=== PATIENT | male | born 1935 | race Caucasian/White ===

== ENCOUNTER 2018-02-17 20:52 | Inpatient (IN) | payer OTHER ==
[2018-02-17 21:06] LABS: AADO2 Arterial 229.9 mmHg (7.0-24.0); Allen Test ACCEPTAB; Arterial Base Excess 2.8 mmol/L (-3.0-3); Arterial Blood Gas Oxygen Sat 93.8 mmHG (95.0-100.0); Arterial COHb 0.4 % (0.0-3.0); Arterial Fraction of Oxyhgb 93.3 % (93.0-99.0); Arterial HCO3 27.4 mmol/L (22.0-26.0); Arterial MetHb 0.1 % (0.0-1.5); Arterial Total Hemglobin 12.5 g/dl (12.0-18.0); Arterial pCO2 42.3 mmhg (35-45); MODE MASK - SIMPLE; Site Left Radial
[2018-02-17 21:37] LABS: ADD MAN DIFF? NO
[2018-02-17 21:41] LABS: BASOPHIL # 0.1 10^3/ul (0.0-0.1); BASOPHILS % 0.7 % (0.0-2.0); EOSINOPHILS # 0.4 10^3/ul (0.0-0.5); HEMATOCRIT 37.1 % (42.0-52.0); HEMOGLOBIN 11.9 g/dl (14.0-18.0); LYMPHOCYTES # 1.5 10^3/ul (0.8-2.9); LYMPHOCYTES % 21.3 % (15.0-51.0); MEAN CORPUSCULAR HEMOGLOBIN 29.9 pg (29.0-33.0); MEAN CORPUSCULAR HGB CONC 32.1 g/dl (32.0-37.0); MEAN CORPUSCULAR VOLUME 93.2 fl (82.0-101.0); MEAN PLATELET VOLUME 11.1 fl (7.4-10.4); MONOCYTE # 0.6 10^3/ul (0.3-0.9); MONOCYTES % 8.4 % (0.0-11.0); NEUTROPHIL # 4.5 10^3/ul (1.6-7.5); NEUTROPHILS % 64.3 % (39.0-77.0); PLATELET COUNT 279 10^3/UL (140-415); RED BLOOD COUNT 3.98 10^6/ul (4.70-6.10); RED CELL DISTRIBUTION WIDTH 13.6 % (11.5-14.5)
[2018-02-17 21:41] LABS: WHITE BLOOD COUNT 6.9 10^3/ul (4.8-10.8)
[2018-02-17] MEDS: PIPER-TAZO 3.375 GM IV (PMX) 100 ML IVPB (21:55)
[2018-02-17] MEDS: SODIUM CHLORIDE 0.9% 1L BAG IV* (21:56)
[2018-02-17 22:01] LABS: ANION GAP 12 (8-16); BLOOD UREA NITROGEN 22 mg/dl (7-20); CALCIUM 9.6 mg/dl (8.4-10.2); CARBON DIOXIDE 31 mmol/L (21-31); CHLORIDE 100 mmol/L (97-110); CREATININE 0.83 mg/dl (0.61-1.24); GLUCOSE 104 mg/dl (70-220); POTASSIUM 4.1 mmol/L (3.5-5.1); SODIUM 139 mmol/L (135-144)
[2018-02-17 22:13] LABS: B-TYPE NATRIURETIC PEPTIDE 297 PG/ML (0-450)
[2018-02-17 22:14] LABS: TROPONIN-I < 0.010 ng/ml (0.000-0.120)
[2018-02-17 22:37] LABS: LACTIC ACID 0.9 mmol/L (0.5-2.0)
[2018-02-17 22:40] LABS: ADD UMIC NO; UR ASCORBIC ACID 40 mg/dL (NEGATIVE); UR BILIRUBIN (Dip) NEGATIVE (NEGATIVE); UR BLOOD (Dip) NEGATIVE (NEGATIVE); UR CLARITY CLEAR (CLEAR); UR COLOR YELLOW (YELLOW); UR GLUCOSE (Dip) NEGATIVE (NEGATIVE); UR KETONES (Dip) NEGATIVE (NEGATIVE); UR LEUKOCYTE ESTERASE (Dip) NEGATIVE Leu/ul (NEGATIVE); UR NITRITE (Dip) NEGATIVE (NEGATIVE); UR SPECIFIC GRAVITY (Dip) 1.011 (1.003-1.030); UR TOTAL PROTEIN (Dip) NEGATIVE (NEGATIVE); UR UROBILINOGEN (Dip) NEGATIVE (NEGATIVE)
[2018-02-17] MEDS: VANCOMYCIN 1 GM (PMX) 250 ML IVPB (23:20)
[2018-02-17] MEDS ORDERED: NACL 0.9% 3 ML SYG IV (23:30)
[2018-02-17] MEDS ORDERED: ONDANSETRON 4 MG INJ IV (23:30)
[2018-02-17] MEDS ORDERED: DOCUSATE SODIUM 100 MG CAP PO (23:30)
[2018-02-17] MEDS ORDERED: MAGNESIUM HYDROXIDE 30ML CUP PO (23:30)
[2018-02-17] MEDS ORDERED: BISACODYL 10 MG SUPP PR (23:30)
[2018-02-17] MEDS ORDERED: ALBUTEROL/IPRATROPIUM (NEB) 3 ML AMP HHN (23:30)
[2018-02-18] MEDS: ALBUTEROL/IPRATROPIUM (NEB) 3 ML AMP HHN ×4 (00:38→19:51)
[2018-02-18 00:54] LABS: LACTIC ACID 1.1 mmol/L (0.5-2.0)
[2018-02-18] MEDS: SOD CHLORIDE 0.9% 1,000 ML IV ×3 (02:45→22:11)
[2018-02-18] MEDS: HYDROCODONE/APAP (5/325) TAB PO (03:40)
[2018-02-18 04:03] LABS: WHITE BLOOD COUNT 20.6 10^3/ul (4.8-10.8)
[2018-02-18 04:03] LABS: ABNORMAL IP MESSAGE 1; HEMATOCRIT 36.5 % (42.0-52.0); HEMOGLOBIN 11.6 g/dl (14.0-18.0); MEAN CORPUSCULAR HEMOGLOBIN 29.5 pg (29.0-33.0); MEAN CORPUSCULAR HGB CONC 31.8 g/dl (32.0-37.0); MEAN CORPUSCULAR VOLUME 92.9 fl (82.0-101.0); MEAN PLATELET VOLUME 11.5 fl (7.4-10.4); PLATELET COUNT 265 10^3/UL (140-415); POSITIVE DIFF @See below; RED BLOOD COUNT 3.93 10^6/ul (4.70-6.10); RED CELL DISTRIBUTION WIDTH 13.9 % (11.5-14.5)
[2018-02-18 04:06] LABS: ADD MAN DIFF? YES
[2018-02-18 04:15] LABS: LACTIC ACID 1.6 mmol/L (0.5-2.0)
[2018-02-18 04:18] LABS: ALANINE AMINOTRANSFERASE 28 IU/L (13-69); ALBUMIN 3.5 g/dl (3.3-4.9); ALBUMIN/GLOBULIN RATIO 1.09; ALKALINE PHOSPHATASE 101 IU/L (42-121); ANION GAP 7 (8-16); ASPARTATE AMINO TRANSFERASE 24 IU/L (15-46); BILIRUBIN,INDIRECT 0.9 mg/dl (0-1.1); BILIRUBIN,TOTAL 0.9 mg/dl (0.2-1.3); BLOOD UREA NITROGEN 20 mg/dl (7-20); CALCIUM 9.2 mg/dl (8.4-10.2); CARBON DIOXIDE 28 mmol/L (21-31); CHLORIDE 110 mmol/L (97-110); CREATININE 0.72 mg/dl (0.61-1.24); GLUCOSE 119 mg/dl (70-220); MAGNESIUM 1.8 mg/dl (1.7-2.5); SODIUM 141 mmol/L (135-144); TOTAL PROTEIN 6.7 g/dl (6.1-8.1)
[2018-02-18 04:34] LABS: CREATINE KINASE 135 IU/L (23-200)
[2018-02-18 04:46] LABS: CK INDEX 1.1; TROPONIN-I 0.013 ng/ml (0.000-0.120)
[2018-02-18 04:53] LABS: CK-MB 1.48 ng/ml (0.0-2.4)
[2018-02-18] MEDS ORDERED: PENDING SANTYL ORDER FOR WOUND CARE XX (05:30)
[2018-02-18] MEDS: PIPER-TAZO 3.375 GM IV (PMX) 100 ML IVPB ×3 (05:34→22:11)
[2018-02-18] MEDS: ACETAMINOPHEN 325 MG TAB PO (05:35)
[2018-02-18 05:54] LABS: BAND NEUTROPHILS #M 0.8 10^3/ul (0.0-0.6); BAND NEUTROPHILS % (M) 4 % (0-4); GIANT THROMBO% (M) 1 % (0-0); LYMPHOCYTES #M 0.6 10^3/ul (0.8-2.9); LYMPHOCYTES % (M) 3 % (15-51); METAMYELOCYTES #M 0.2 10^3/ul (0.0-0.0); METAMYELOCYTES %M 1 % (0-0); MONOCYTE #M 1.4 10^3/ul (0.3-0.9); MONOCYTES % (M) 7 % (0-11); PLATELET ESTIMATE NORMAL; POLYCHROMASIA 1+ (0-0); SEG NEUT #M 17.7 10^3/ul (1.6-7.5); SEGMENTED NEUTROPHILS (M) % 85 % (39-77)
[2018-02-18] MEDS: FAMOTIDINE 20 MG TAB PO (08:15)
[2018-02-18] MEDS: ENOXAPARIN 40 MG/0.4 ML SYG SC (08:16)
[2018-02-18] MEDS ORDERED: VANCOMYCIN IV PER PHARMACY XX (09:30)
[2018-02-18 09:44] LABS: CREATINE KINASE 108 IU/L (23-200)
[2018-02-18 09:57] LABS: CK INDEX 2.2; CK-MB 2.34 ng/ml (0.0-2.4); TROPONIN-I 0.012 ng/ml (0.000-0.120)
[2018-02-18] MEDS: MEMANTINE 10 MG TAB GTB ×2 (10:00→20:29)
[2018-02-18] MEDS: IOHEXOL 100 ML (11:00)
[2018-02-18] MEDS ORDERED: ALBUTEROL/IPRATROPIUM (NEB) 3 ML AMP HHN (11:00)
[2018-02-18] MEDS: SOD CHLORIDE 0.9% 100 ML (11:00)
[2018-02-18] MEDS: VANCOMYCIN 500MG/NS (PMX) 100 ML IVPB ×2 (12:35→23:13)
[2018-02-18] MEDS: AMLODIPINE 10 MG TAB GTB (12:35)
[2018-02-18] MEDS: DOCUSATE SODIUM 10 MG/ML (10ML CUP) GTB (20:28)
[2018-02-18] MEDS: QUETIAPINE 25 MG TAB GTB (20:29)
[2018-02-18] MEDS: DONEPEZIL 10 MG TAB GTB (20:29)
[2018-02-19] MEDS: ALBUTEROL/IPRATROPIUM (NEB) 3 ML AMP HHN ×4 (01:49→19:19)
[2018-02-19] MEDS: PIPER-TAZO 3.375 GM IV (PMX) 100 ML IVPB ×3 (05:03→23:05)
[2018-02-19] MEDS: LANSOPRAZOLE 30 MG CAP GTB (05:03)
[2018-02-19] MEDS: ACETAMINOPHEN 325 MG TAB PO (05:04)
[2018-02-19] MEDS: DOCUSATE SODIUM 10 MG/ML (10ML CUP) GTB ×2 (08:52→20:24)
[2018-02-19] MEDS: ASPIRIN 81 MG TAB GTB (08:52)
[2018-02-19] MEDS: AMLODIPINE 10 MG TAB GTB (08:52)
[2018-02-19] MEDS: MEMANTINE 10 MG TAB GTB ×2 (08:52→20:24)
[2018-02-19] MEDS: ENOXAPARIN 40 MG/0.4 ML SYG SC (08:53)
[2018-02-19 10:37] LABS: ADD MAN DIFF? NO
[2018-02-19 10:43] LABS: BASOPHIL # 0.1 10^3/ul (0.0-0.1); BASOPHILS % 0.4 % (0.0-2.0); EOSINOPHILS # 0.3 10^3/ul (0.0-0.5); EOSINOPHILS % 1.8 % (0.0-7.0); HEMATOCRIT 29.5 % (42.0-52.0); HEMOGLOBIN 9.2 g/dl (14.0-18.0); LYMPHOCYTES # 0.8 10^3/ul (0.8-2.9); LYMPHOCYTES % 5.7 % (15.0-51.0); MEAN CORPUSCULAR HEMOGLOBIN 29.7 pg (29.0-33.0); MEAN CORPUSCULAR HGB CONC 31.2 g/dl (32.0-37.0); MEAN CORPUSCULAR VOLUME 95.2 fl (82.0-101.0); MEAN PLATELET VOLUME 11.2 fl (7.4-10.4); MONOCYTE # 0.7 10^3/ul (0.3-0.9); MONOCYTES % 5.3 % (0.0-11.0); NEUTROPHIL # 11.9 10^3/ul (1.6-7.5); NEUTROPHILS % 86.4 % (39.0-77.0); PLATELET COUNT 204 10^3/UL (140-415); RED CELL DISTRIBUTION WIDTH 14.2 % (11.5-14.5)
[2018-02-19 10:43] LABS: WHITE BLOOD COUNT 13.8 10^3/ul (4.8-10.8)
[2018-02-19 11:08] LABS: PHOSPHORUS 2.3 mg/dl (2.5-4.9)
[2018-02-19 11:08] LABS: ANION GAP 9 (8-16); BLOOD UREA NITROGEN 18 mg/dl (7-20); CALCIUM 8.6 mg/dl (8.4-10.2); CARBON DIOXIDE 26 mmol/L (21-31); CHLORIDE 109 mmol/L (97-110); CREATININE 0.78 mg/dl (0.61-1.24); GLUCOSE 136 mg/dl (70-220); MAGNESIUM 1.9 mg/dl (1.7-2.5); POTASSIUM 3.2 mmol/L (3.5-5.1); SODIUM 141 mmol/L (135-144)
[2018-02-19 11:19] LABS: VANCOMYCIN,TROUGH 8.7 ug/ml (10.0-20.0)
[2018-02-19] MEDS: VANCOMYCIN 500MG/NS (PMX) 100 ML IVPB (11:40)
[2018-02-19] MEDS: POTASSIUM CHLORIDE 20 MEQ POWDER FOR ORAL SOLN GTB (13:44)
[2018-02-19] MEDS: QUETIAPINE 25 MG TAB GTB (20:24)
[2018-02-19] MEDS: DONEPEZIL 10 MG TAB GTB (20:24)
[2018-02-20] MEDS: ALBUTEROL/IPRATROPIUM (NEB) 3 ML AMP HHN ×5 (01:07→20:32)
[2018-02-20] MEDS: VANCOMYCIN 750 MG in SOD CHLORIDE 0.9% 150 ML IVPB ×2 (01:30→11:21)
[2018-02-20] MEDS: PIPER-TAZO 3.375 GM IV (PMX) 100 ML IVPB ×3 (06:21→21:50)
[2018-02-20] MEDS: LANSOPRAZOLE 30 MG CAP GTB (06:21)
[2018-02-20] MEDS: MEMANTINE 10 MG TAB GTB ×2 (08:33→21:50)
[2018-02-20] MEDS: AMLODIPINE 10 MG TAB GTB (08:33)
[2018-02-20] MEDS: ASPIRIN 81 MG TAB GTB (08:33)
[2018-02-20] MEDS: ENOXAPARIN 40 MG/0.4 ML SYG SC (08:34)
[2018-02-20] MEDS: DOCUSATE SODIUM 10 MG/ML (10ML CUP) GTB ×2 (08:34→21:50)
[2018-02-20] MEDS: ACETAMINOPHEN 325 MG TAB PO (08:34)
[2018-02-20 08:54] LABS: ADD MAN DIFF? NO
[2018-02-20 08:58] LABS: WHITE BLOOD COUNT 14.1 10^3/ul (4.8-10.8)
[2018-02-20 08:58] LABS: ABNORMAL IP MESSAGE 1; BASOPHILS % 0.3 % (0.0-2.0); EOSINOPHILS # 0.3 10^3/ul (0.0-0.5); EOSINOPHILS % 2.4 % (0.0-7.0); HEMATOCRIT 32.8 % (42.0-52.0); HEMOGLOBIN 10.3 g/dl (14.0-18.0); LYMPHOCYTES # 0.6 10^3/ul (0.8-2.9); MEAN CORPUSCULAR HEMOGLOBIN 29.9 pg (29.0-33.0); MEAN CORPUSCULAR HGB CONC 31.4 g/dl (32.0-37.0); MEAN CORPUSCULAR VOLUME 95.1 fl (82.0-101.0); MEAN PLATELET VOLUME 12.1 fl (7.4-10.4); MONOCYTE # 0.9 10^3/ul (0.3-0.9); MONOCYTES % 6.1 % (0.0-11.0); NEUTROPHIL # 12.3 10^3/ul (1.6-7.5); NEUTROPHILS % 86.9 % (39.0-77.0); PLATELET COUNT 229 10^3/UL (140-415); POSITIVE DIFF @See below; RED BLOOD COUNT 3.45 10^6/ul (4.70-6.10); RED CELL DISTRIBUTION WIDTH 14.2 % (11.5-14.5)
[2018-02-20 09:27] LABS: ANION GAP 10 (8-16); BLOOD UREA NITROGEN 15 mg/dl (7-20); CALCIUM 9.1 mg/dl (8.4-10.2); CARBON DIOXIDE 29 mmol/L (21-31); CHLORIDE 108 mmol/L (97-110); CREATININE 0.77 mg/dl (0.61-1.24); GLUCOSE 105 mg/dl (70-220); POTASSIUM 3.8 mmol/L (3.5-5.1); SODIUM 143 mmol/L (135-144)
[2018-02-20] MEDS: LACTATED RINGER'S 1,000 ML IV (13:38)
[2018-02-20] MEDS: DONEPEZIL 10 MG TAB GTB (21:50)
[2018-02-20] MEDS: QUETIAPINE 25 MG TAB GTB (21:50)
[2018-02-21] MEDS: VANCOMYCIN 750 MG in SOD CHLORIDE 0.9% 150 ML IVPB ×2 (01:26→11:04)
[2018-02-21] MEDS: ALBUTEROL/IPRATROPIUM (NEB) 3 ML AMP HHN ×3 (01:32→14:59)
[2018-02-21] MEDS: LANSOPRAZOLE 30 MG CAP GTB (06:19)
[2018-02-21] MEDS: PIPER-TAZO 3.375 GM IV (PMX) 100 ML IVPB ×2 (06:20→13:48)
[2018-02-21] MEDS: ASPIRIN 81 MG TAB GTB (08:50)
[2018-02-21] MEDS: AMLODIPINE 10 MG TAB GTB (08:50)
[2018-02-21] MEDS: MEMANTINE 10 MG TAB GTB (08:50)
[2018-02-21] MEDS: DOCUSATE SODIUM 10 MG/ML (10ML CUP) GTB (08:50)
[2018-02-21] MEDS: ENOXAPARIN 40 MG/0.4 ML SYG SC (08:55)
[2018-02-21 11:35] LABS: ADD MAN DIFF? NO
[2018-02-21 11:37] LABS: WHITE BLOOD COUNT 9.4 10^3/ul (4.8-10.8)
[2018-02-21 11:37] LABS: BASOPHILS % 0.3 % (0.0-2.0); EOSINOPHILS # 0.4 10^3/ul (0.0-0.5); EOSINOPHILS % 4.2 % (0.0-7.0); HEMATOCRIT 29.3 % (42.0-52.0); HEMOGLOBIN 9.3 g/dl (14.0-18.0); LYMPHOCYTES # 0.8 10^3/ul (0.8-2.9); LYMPHOCYTES % 8.7 % (15.0-51.0); MEAN CORPUSCULAR HEMOGLOBIN 29.9 pg (29.0-33.0); MEAN CORPUSCULAR HGB CONC 31.7 g/dl (32.0-37.0); MEAN CORPUSCULAR VOLUME 94.2 fl (82.0-101.0); MEAN PLATELET VOLUME 11.9 fl (7.4-10.4); MONOCYTE # 0.8 10^3/ul (0.3-0.9); MONOCYTES % 8.3 % (0.0-11.0); NEUTROPHIL # 7.4 10^3/ul (1.6-7.5); NEUTROPHILS % 78.1 % (39.0-77.0); PLATELET COUNT 240 10^3/UL (140-415); RED BLOOD COUNT 3.11 10^6/ul (4.70-6.10); RED CELL DISTRIBUTION WIDTH 14.2 % (11.5-14.5)
[2018-02-21 11:57] LABS: ANION GAP 10 (8-16); BLOOD UREA NITROGEN 15 mg/dl (7-20); CALCIUM 8.8 mg/dl (8.4-10.2); CARBON DIOXIDE 29 mmol/L (21-31); CHLORIDE 107 mmol/L (97-110); GLUCOSE 110 mg/dl (70-220); POTASSIUM 3.5 mmol/L (3.5-5.1); SODIUM 142 mmol/L (135-144)
[2018-02-21 12:00] LABS: VANCOMYCIN,TROUGH 12.2 ug/ml (10.0-20.0)
[2018-02-21] MEDS: METOPROLOL 25 MG TAB GTB (12:09)
== END 2018-02-21 17:20 | DRG 871 ==
LOC: MS4 23:27 → E/R 20:52
DX: A41.9 Sepsis, unspecified organism (principal); J96.01 Acute respiratory failure with hypoxia; J18.9 Pneumonia, unspecified organism; R62.7 Adult failure to thrive; I10 Essential (primary) hypertension; J43.9 Emphysema, unspecified; Z74.01 Bed confinement status; G30.9 Alzheimer's disease, unspecified; F02.80 Dementia in other diseases classified elsewhere, unspecified severity, without behavioral disturbance, psychotic disturbance, mood disturbance, and anxiety; Z93.1 Gastrostomy status; Z87.891 Personal history of nicotine dependence; R13.10 Dysphagia, unspecified
CPT/HCPCS: 36415; 36600; 71045; 71275; 80048; 80053; 80202; 81003; 82550; 82553; 82803; 83605; 83735; 83880; 84100; 84484; 85025; 87040; 87081; 87086; 93005; 94640; 94664; 96365; 96375; 99291-25

== ENCOUNTER 2018-02-23 10:02 | Inpatient (IN) | payer OTHER ==
[2018-02-23 10:36] LABS: AADO2 Arterial 93.9 mmHg (7.0-24.0); Allen Test ACCEPTAB; Arterial Base Excess 2.3 mmol/L (-3.0-3); Arterial Blood Gas Oxygen Sat 87.7 mmHG (95.0-100.0); Arterial COHb 0.3 % (0.0-3.0); Arterial Fraction of Oxyhgb 87.3 % (93.0-99.0); Arterial HCO3 26.4 mmol/L (22.0-26.0); Arterial MetHb 0.1 % (0.0-1.5); Arterial Total Hemglobin 11.6 g/dl (12.0-18.0); Arterial pCO2 39.3 mmhg (35-45); MODE NASAL CANNULA; Site Left Radial
[2018-02-23] MEDS: CEFEPIME 2GM/50 ML (PMX) 50 ML IVPB (10:52)
[2018-02-23 10:59] LABS: ADD MAN DIFF? NO
[2018-02-23 11:02] LABS: WHITE BLOOD COUNT 12.5 10^3/ul (4.8-10.8)
[2018-02-23 11:02] LABS: BASOPHIL # 0.1 10^3/ul (0.0-0.1); BASOPHILS % 0.4 % (0.0-2.0); EOSINOPHILS % 0.3 % (0.0-7.0); HEMATOCRIT 32.5 % (42.0-52.0); HEMOGLOBIN 10.4 g/dl (14.0-18.0); LYMPHOCYTES # 0.7 10^3/ul (0.8-2.9); LYMPHOCYTES % 5.9 % (15.0-51.0); MEAN CORPUSCULAR HEMOGLOBIN 29.8 pg (29.0-33.0); MEAN CORPUSCULAR VOLUME 93.1 fl (82.0-101.0); MEAN PLATELET VOLUME 11.4 fl (7.4-10.4); NEUTROPHIL # 10.6 10^3/ul (1.6-7.5); PLATELET COUNT 299 10^3/UL (140-415); RED BLOOD COUNT 3.49 10^6/ul (4.70-6.10); RED CELL DISTRIBUTION WIDTH 13.7 % (11.5-14.5)
[2018-02-23 11:19] LABS: LACTIC ACID 1.4 mmol/L (0.5-2.0)
[2018-02-23 11:34] LABS: ALANINE AMINOTRANSFERASE 37 IU/L (13-69); ALBUMIN 3.2 g/dl (3.3-4.9); ALBUMIN/GLOBULIN RATIO 1.06; ALKALINE PHOSPHATASE 89 IU/L (42-121); ANION GAP 11 (8-16); ASPARTATE AMINO TRANSFERASE 35 IU/L (15-46); BILIRUBIN,INDIRECT 0.5 mg/dl (0-1.1); BILIRUBIN,TOTAL 0.5 mg/dl (0.2-1.3); BLOOD UREA NITROGEN 22 mg/dl (7-20); CALCIUM 9.1 mg/dl (8.4-10.2); CARBON DIOXIDE 30 mmol/L (21-31); CHLORIDE 100 mmol/L (97-110); CREATININE 0.85 mg/dl (0.61-1.24); GLUCOSE 104 mg/dl (70-220); INR 0.89; POTASSIUM 3.9 mmol/L (3.5-5.1); PROTIME 12.1 Sec (11.9-14.9); PT RATIO 0.9; SODIUM 137 mmol/L (135-144); TOTAL PROTEIN 6.2 g/dl (6.1-8.1)
[2018-02-23 11:35] LABS: PARTIAL THROMBOPLASTIN TIME 32.1 Sec (25.0-35.0)
[2018-02-23 11:45] LABS: TROPONIN-I 0.012 ng/ml (0.000-0.120)
[2018-02-23] MEDS: CLINDAMYCIN 900 MG/D5W (PMX) 50 ML IVPB (11:51)
[2018-02-23] MEDS ORDERED: ONDANSETRON 4 MG INJ IV (12:30)
[2018-02-23] MEDS ORDERED: ACETAMINOPHEN 325 MG TAB PO (12:30)
[2018-02-23] MEDS: VANCOMYCIN 1 GM (PMX) 250 ML IVPB (12:37)
[2018-02-23] MEDS ORDERED: NACL 0.9% 3 ML SYG IV (13:00)
[2018-02-23] MEDS: SODIUM CHLORIDE 0.9% 1L BAG IV* (13:10)
[2018-02-23] MEDS ORDERED: BISACODYL (EC) 5 MG TAB PO (13:30)
[2018-02-23] MEDS ORDERED: ALBUTEROL/IPRATROPIUM (NEB) 3 ML AMP INH (13:30)
[2018-02-23 17:00] LABS: LACTIC ACID 1.4 mmol/L (0.5-2.0)
[2018-02-23] MEDS: DEXTROSE 5%-0.45% NACL 1,000 ML IV ×2 (17:08→23:00)
[2018-02-23] MEDS: METOPROLOL 25 MG TAB GTB (21:56)
[2018-02-23] MEDS: DOCUSATE SODIUM 10 MG/ML (10ML CUP) GTB (21:56)
[2018-02-23] MEDS: QUETIAPINE 25 MG TAB GTB (21:56)
[2018-02-23] MEDS: DONEPEZIL 10 MG TAB PO (21:57)
[2018-02-23] MEDS: MEMANTINE 10 MG TAB GTB (21:57)
[2018-02-24] MEDS: DEXTROSE 5%-0.45% NACL 1,000 ML IV ×2 (03:08→09:00)
[2018-02-24] MEDS ORDERED: VANCOMYCIN IV PER PHARMACY XX (04:30)
[2018-02-24] MEDS: PIPER-TAZO 2.25 GM (PMX) 50 ML IVPB (05:32)
[2018-02-24 06:03] LABS: ADD MAN DIFF? NO
[2018-02-24 06:16] LABS: BASOPHIL # 0.1 10^3/ul (0.0-0.1); BASOPHILS % 0.5 % (0.0-2.0); EOSINOPHILS # 0.3 10^3/ul (0.0-0.5); EOSINOPHILS % 2.3 % (0.0-7.0); HEMATOCRIT 29.4 % (42.0-52.0); HEMOGLOBIN 9.4 g/dl (14.0-18.0); LYMPHOCYTES # 1.4 10^3/ul (0.8-2.9); LYMPHOCYTES % 12.6 % (15.0-51.0); MEAN CORPUSCULAR HEMOGLOBIN 29.8 pg (29.0-33.0); MEAN CORPUSCULAR VOLUME 93.3 fl (82.0-101.0); MEAN PLATELET VOLUME 11.3 fl (7.4-10.4); MONOCYTE # 1.1 10^3/ul (0.3-0.9); MONOCYTES % 9.7 % (0.0-11.0); NEUTROPHIL # 8.2 10^3/ul (1.6-7.5); NEUTROPHILS % 74.5 % (39.0-77.0); PLATELET COUNT 287 10^3/UL (140-415); RED BLOOD COUNT 3.15 10^6/ul (4.70-6.10)
[2018-02-24 06:47] LABS: ANION GAP 6 (8-16); BLOOD UREA NITROGEN 15 mg/dl (7-20); CARBON DIOXIDE 28 mmol/L (21-31); CHLORIDE 108 mmol/L (97-110); CREATININE 0.74 mg/dl (0.61-1.24); GLUCOSE 104 mg/dl (70-220); POTASSIUM 3.3 mmol/L (3.5-5.1); SODIUM 139 mmol/L (135-144)
[2018-02-24] MEDS: MEMANTINE 10 MG TAB GTB ×2 (09:25→20:12)
[2018-02-24] MEDS: AMLODIPINE 10 MG TAB GTB (09:26)
[2018-02-24] MEDS: DOCUSATE SODIUM 10 MG/ML (10ML CUP) GTB ×2 (09:26→20:12)
[2018-02-24] MEDS: METOPROLOL 25 MG TAB GTB ×2 (09:26→20:13)
[2018-02-24] MEDS: VANCOMYCIN 750 MG in SOD CHLORIDE 0.9% 150 ML IVPB ×2 (11:47→22:37)
[2018-02-24] MEDS ORDERED: VANCOMYCIN 750 MG in SOD CHLORIDE 0.9% 150 ML IVPB (13:00)
[2018-02-24] MEDS: PIPER-TAZO 3.375 GM IV (PMX) 100 ML IVPB ×2 (14:29→18:19)
[2018-02-24] MEDS: POTASSIUM CHLORIDE 20 MEQ POWDER FOR ORAL SOLN GTB (14:29)
[2018-02-24] MEDS: QUETIAPINE 25 MG TAB GTB (20:12)
[2018-02-24] MEDS: DONEPEZIL 10 MG TAB PO (20:12)
[2018-02-24 22:46] LABS: OCCULT BLOOD STOOL POSITIVE (NEGATIVE)
[2018-02-25] MEDS: PIPER-TAZO 3.375 GM IV (PMX) 100 ML IVPB ×4 (00:44→19:12)
[2018-02-25 06:09] LABS: ADD MAN DIFF? NO
[2018-02-25 06:24] LABS: BASOPHIL # 0.1 10^3/ul (0.0-0.1); BASOPHILS % 0.7 % (0.0-2.0); EOSINOPHILS # 0.2 10^3/ul (0.0-0.5); EOSINOPHILS % 2.5 % (0.0-7.0); HEMATOCRIT 29.4 % (42.0-52.0); HEMOGLOBIN 9.3 g/dl (14.0-18.0); LYMPHOCYTES # 0.8 10^3/ul (0.8-2.9); LYMPHOCYTES % 8.1 % (15.0-51.0); MEAN CORPUSCULAR HEMOGLOBIN 29.2 pg (29.0-33.0); MEAN CORPUSCULAR HGB CONC 31.6 g/dl (32.0-37.0); MEAN CORPUSCULAR VOLUME 92.2 fl (82.0-101.0); MEAN PLATELET VOLUME 11.4 fl (7.4-10.4); MONOCYTE # 0.8 10^3/ul (0.3-0.9); MONOCYTES % 8.5 % (0.0-11.0); NEUTROPHIL # 7.6 10^3/ul (1.6-7.5); NEUTROPHILS % 79.8 % (39.0-77.0); PLATELET COUNT 305 10^3/UL (140-415); RED BLOOD COUNT 3.19 10^6/ul (4.70-6.10); RED CELL DISTRIBUTION WIDTH 13.8 % (11.5-14.5)
[2018-02-25 06:24] LABS: WHITE BLOOD COUNT 9.6 10^3/ul (4.8-10.8)
[2018-02-25 06:56] LABS: PHOSPHORUS 2.3 mg/dl (2.5-4.9)
[2018-02-25 06:56] LABS: MAGNESIUM 1.9 mg/dl (1.7-2.5)
[2018-02-25 07:08] LABS: ALANINE AMINOTRANSFERASE 30 IU/L (13-69); ALBUMIN 2.7 g/dl (3.3-4.9); ALBUMIN/GLOBULIN RATIO 0.96; ALKALINE PHOSPHATASE 85 IU/L (42-121); ANION GAP 6 (8-16); ASPARTATE AMINO TRANSFERASE 28 IU/L (15-46); BILIRUBIN,INDIRECT 0.4 mg/dl (0-1.1); BILIRUBIN,TOTAL 0.4 mg/dl (0.2-1.3); BLOOD UREA NITROGEN 16 mg/dl (7-20); CALCIUM 8.8 mg/dl (8.4-10.2); CARBON DIOXIDE 29 mmol/L (21-31); CHLORIDE 108 mmol/L (97-110); CREATININE 0.79 mg/dl (0.61-1.24); GLUCOSE 138 mg/dl (70-220); POTASSIUM 3.2 mmol/L (3.5-5.1); SODIUM 140 mmol/L (135-144); TOTAL PROTEIN 5.5 g/dl (6.1-8.1)
[2018-02-25] MEDS: DOCUSATE SODIUM 10 MG/ML (10ML CUP) GTB ×2 (09:00→21:28)
[2018-02-25] MEDS: MEMANTINE 10 MG TAB GTB ×2 (10:06→21:28)
[2018-02-25] MEDS: METOPROLOL 25 MG TAB GTB ×2 (10:06→21:29)
[2018-02-25] MEDS: AMLODIPINE 10 MG TAB GTB (10:07)
[2018-02-25] MEDS: VANCOMYCIN 750 MG in SOD CHLORIDE 0.9% 150 ML IVPB ×2 (11:32→23:02)
[2018-02-25] MEDS: POTASSIUM PHOSPHATE 30 MM in SOD CHLORIDE 0.9% 250 ML IVPB (14:50)
[2018-02-25] MEDS: DONEPEZIL 10 MG TAB PO (21:28)
[2018-02-25] MEDS: QUETIAPINE 25 MG TAB GTB (21:28)
[2018-02-26] MEDS: PIPER-TAZO 3.375 GM IV (PMX) 100 ML IVPB ×5 (00:14→23:55)
[2018-02-26 06:13] LABS: ADD MAN DIFF? NO
[2018-02-26 06:18] LABS: BASOPHIL # 0.1 10^3/ul (0.0-0.1); BASOPHILS % 0.7 % (0.0-2.0); EOSINOPHILS # 0.3 10^3/ul (0.0-0.5); EOSINOPHILS % 2.3 % (0.0-7.0); HEMATOCRIT 28.3 % (42.0-52.0); LYMPHOCYTES # 1.2 10^3/ul (0.8-2.9); LYMPHOCYTES % 10.4 % (15.0-51.0); MEAN CORPUSCULAR HEMOGLOBIN 29.6 pg (29.0-33.0); MEAN CORPUSCULAR HGB CONC 31.8 g/dl (32.0-37.0); MEAN CORPUSCULAR VOLUME 93.1 fl (82.0-101.0); MEAN PLATELET VOLUME 11.2 fl (7.4-10.4); MONOCYTE # 1.1 10^3/ul (0.3-0.9); MONOCYTES % 9.7 % (0.0-11.0); NEUTROPHIL # 8.7 10^3/ul (1.6-7.5); NEUTROPHILS % 76.5 % (39.0-77.0); PLATELET COUNT 330 10^3/UL (140-415); RED BLOOD COUNT 3.04 10^6/ul (4.70-6.10); RED CELL DISTRIBUTION WIDTH 14.1 % (11.5-14.5)
[2018-02-26 06:18] LABS: WHITE BLOOD COUNT 11.4 10^3/ul (4.8-10.8)
[2018-02-26 06:35] LABS: MAGNESIUM 1.9 mg/dl (1.7-2.5)
[2018-02-26 06:35] LABS: PHOSPHORUS 3.4 mg/dl (2.5-4.9)
[2018-02-26 06:39] LABS: INR 1.02; PROTIME 13.5 Sec (11.9-14.9); PT RATIO 1.1
[2018-02-26 06:40] LABS: PARTIAL THROMBOPLASTIN TIME 32.1 Sec (25.0-35.0)
[2018-02-26 06:48] LABS: ALANINE AMINOTRANSFERASE 29 IU/L (13-69); ALBUMIN 2.4 g/dl (3.3-4.9); ALBUMIN/GLOBULIN RATIO 0.92; ALKALINE PHOSPHATASE 72 IU/L (42-121); ANION GAP 8 (8-16); ASPARTATE AMINO TRANSFERASE 20 IU/L (15-46); BILIRUBIN,INDIRECT 0.6 mg/dl (0-1.1); BILIRUBIN,TOTAL 0.6 mg/dl (0.2-1.3); BLOOD UREA NITROGEN 15 mg/dl (7-20); CARBON DIOXIDE 28 mmol/L (21-31); CHLORIDE 112 mmol/L (97-110); GLUCOSE 85 mg/dl (70-220); POTASSIUM 3.3 mmol/L (3.5-5.1); SODIUM 145 mmol/L (135-144)
[2018-02-26] MEDS: MEMANTINE 10 MG TAB GTB ×2 (09:38→20:31)
[2018-02-26] MEDS: DOCUSATE SODIUM 10 MG/ML (10ML CUP) GTB ×2 (09:38→20:31)
[2018-02-26] MEDS: AMLODIPINE 10 MG TAB GTB (09:39)
[2018-02-26] MEDS: METOPROLOL 25 MG TAB GTB ×2 (09:39→20:32)
[2018-02-26] MEDS: POTASSIUM CHLORIDE 20 MEQ POWDER FOR ORAL SOLN GTB (10:44)
[2018-02-26] MEDS: VANCOMYCIN 500MG/NS (PMX) 100 ML IVPB (17:40)
[2018-02-26] MEDS: DONEPEZIL 10 MG TAB PO (20:31)
[2018-02-26] MEDS: QUETIAPINE 25 MG TAB GTB (20:31)
[2018-02-27] MEDS: VANCOMYCIN 500MG/NS (PMX) 100 ML IVPB ×2 (04:43→17:00)
[2018-02-27] MEDS: ACETAMINOPHEN 650MG/20.3ML CUP NGT (04:52)
[2018-02-27] MEDS: PIPER-TAZO 3.375 GM IV (PMX) 100 ML IVPB ×4 (05:47→23:19)
[2018-02-27 06:30] LABS: ADD MAN DIFF? NO
[2018-02-27 06:34] LABS: WHITE BLOOD COUNT 10.7 10^3/ul (4.8-10.8)
[2018-02-27 06:34] LABS: BASOPHIL # 0.1 10^3/ul (0.0-0.1); BASOPHILS % 0.8 % (0.0-2.0); EOSINOPHILS # 0.3 10^3/ul (0.0-0.5); EOSINOPHILS % 2.6 % (0.0-7.0); HEMATOCRIT 30.7 % (42.0-52.0); HEMOGLOBIN 9.7 g/dl (14.0-18.0); LYMPHOCYTES # 0.9 10^3/ul (0.8-2.9); LYMPHOCYTES % 8.3 % (15.0-51.0); MEAN CORPUSCULAR HEMOGLOBIN 29.4 pg (29.0-33.0); MEAN CORPUSCULAR HGB CONC 31.6 g/dl (32.0-37.0); MEAN PLATELET VOLUME 10.7 fl (7.4-10.4); MONOCYTE # 0.7 10^3/ul (0.3-0.9); MONOCYTES % 6.3 % (0.0-11.0); NEUTROPHIL # 8.7 10^3/ul (1.6-7.5); NEUTROPHILS % 81.5 % (39.0-77.0); PLATELET COUNT 363 10^3/UL (140-415); RED CELL DISTRIBUTION WIDTH 13.8 % (11.5-14.5)
[2018-02-27 07:20] LABS: ANION GAP 11 (8-16); BLOOD UREA NITROGEN 16 mg/dl (7-20); CALCIUM 9.3 mg/dl (8.4-10.2); CARBON DIOXIDE 25 mmol/L (21-31); CHLORIDE 110 mmol/L (97-110); CREATININE 0.82 mg/dl (0.61-1.24); GLUCOSE 98 mg/dl (70-220); POTASSIUM 3.2 mmol/L (3.5-5.1); SODIUM 143 mmol/L (135-144)
[2018-02-27 07:22] LABS: PHOSPHORUS 2.6 mg/dl (2.5-4.9)
[2018-02-27 07:22] LABS: MAGNESIUM 1.9 mg/dl (1.7-2.5)
[2018-02-27] MEDS: DOCUSATE SODIUM 10 MG/ML (10ML CUP) GTB ×2 (10:17→23:15)
[2018-02-27] MEDS: METOPROLOL 25 MG TAB GTB ×2 (10:18→23:16)
[2018-02-27] MEDS: AMLODIPINE 10 MG TAB GTB (10:18)
[2018-02-27] MEDS: MEMANTINE 10 MG TAB GTB ×2 (10:18→21:00)
[2018-02-27] MEDS: POTASSIUM CHLORIDE 20 MEQ POWDER FOR ORAL SOLN GTB (10:20)
[2018-02-27] MEDS: DONEPEZIL 10 MG TAB PO (23:16)
[2018-02-27] MEDS: QUETIAPINE 25 MG TAB GTB (23:16)
[2018-02-27] MEDS: SUCRALFATE (100 MG/ML) 10ML CUP GTB (23:19)
[2018-02-28] MEDS: LANSOPRAZOLE 30 MG CAP GTB (06:00)
[2018-02-28] MEDS: PIPER-TAZO 3.375 GM IV (PMX) 100 ML IVPB ×2 (06:00→11:48)
[2018-02-28 06:18] LABS: ADD MAN DIFF? NO
[2018-02-28 06:26] LABS: BASOPHIL # 0.1 10^3/ul (0.0-0.1); BASOPHILS % 0.5 % (0.0-2.0); EOSINOPHILS # 0.4 10^3/ul (0.0-0.5); EOSINOPHILS % 2.7 % (0.0-7.0); HEMATOCRIT 30.2 % (42.0-52.0); HEMOGLOBIN 9.4 g/dl (14.0-18.0); LYMPHOCYTES # 1.1 10^3/ul (0.8-2.9); LYMPHOCYTES % 8.3 % (15.0-51.0); MEAN CORPUSCULAR HEMOGLOBIN 29.5 pg (29.0-33.0); MEAN CORPUSCULAR HGB CONC 31.1 g/dl (32.0-37.0); MEAN CORPUSCULAR VOLUME 94.7 fl (82.0-101.0); MONOCYTES % 7.5 % (0.0-11.0); NEUTROPHIL # 10.6 10^3/ul (1.6-7.5); NEUTROPHILS % 80.6 % (39.0-77.0); PLATELET COUNT 387 10^3/UL (140-415); RED BLOOD COUNT 3.19 10^6/ul (4.70-6.10); RED CELL DISTRIBUTION WIDTH 14.2 % (11.5-14.5)
[2018-02-28 06:26] LABS: WHITE BLOOD COUNT 13.2 10^3/ul (4.8-10.8)
[2018-02-28 07:11] LABS: ANION GAP 8 (8-16); BLOOD UREA NITROGEN 18 mg/dl (7-20); CALCIUM 9.5 mg/dl (8.4-10.2); CARBON DIOXIDE 27 mmol/L (21-31); CHLORIDE 114 mmol/L (97-110); CREATININE 0.88 mg/dl (0.61-1.24); GLUCOSE 99 mg/dl (70-220); POTASSIUM 4.4 mmol/L (3.5-5.1); SODIUM 145 mmol/L (135-144)
[2018-02-28] MEDS: VANCOMYCIN 500MG/NS (PMX) 100 ML IVPB (07:59)
[2018-02-28] MEDS: MEMANTINE 10 MG TAB GTB (09:07)
[2018-02-28] MEDS: SUCRALFATE (100 MG/ML) 10ML CUP GTB ×2 (09:08→13:58)
[2018-02-28] MEDS: METOPROLOL 25 MG TAB GTB (09:08)
[2018-02-28] MEDS: AMLODIPINE 10 MG TAB GTB (09:08)
[2018-02-28] MEDS: DOCUSATE SODIUM 10 MG/ML (10ML CUP) GTB (09:09)
== END 2018-02-28 17:35 | DRG 377 ==
LOC: E/R 10:02 → MS2 15:08
PROC: 0DJ08ZZ Inspection of Upper Intestinal Tract, Via Natural or Artificial Opening Endoscopic (ICD-10-PCS; principal; 2018-02-27 16:30)
DX: K25.4 Chronic or unspecified gastric ulcer with hemorrhage (principal); J96.01 Acute respiratory failure with hypoxia; J18.9 Pneumonia, unspecified organism; J44.9 Chronic obstructive pulmonary disease, unspecified; Z93.1 Gastrostomy status; I10 Essential (primary) hypertension; G30.9 Alzheimer's disease, unspecified; F02.80 Dementia in other diseases classified elsewhere, unspecified severity, without behavioral disturbance, psychotic disturbance, mood disturbance, and anxiety; K21.0 Gastro-esophageal reflux disease with esophagitis; K22.8 Other specified diseases of esophagus; R11.10 Vomiting, unspecified; R62.7 Adult failure to thrive; Y95 Nosocomial condition; Z79.82 Long term (current) use of aspirin; Z74.01 Bed confinement status; Z87.891 Personal history of nicotine dependence
CPT/HCPCS: 36415; 36600; 71045; 74176; 80048; 80053; 80202; 82270; 82271; 82803; 83605; 83735; 84100; 84484; 85025; 85610; 85730; 87040; 93005; 96374; 96375; 99285-25

== ENCOUNTER 2018-03-07 10:09 | Inpatient (IN) | payer OTHER ==
[2018-03-07] MEDS: SODIUM CHLORIDE 0.9% 1L BAG IV* (10:19)
[2018-03-07 10:31] LABS: ADD MAN DIFF? NO
[2018-03-07 10:40] LABS: WHITE BLOOD COUNT 24.7 10^3/ul (4.8-10.8)
[2018-03-07 10:40] LABS: ABNORMAL IP MESSAGE 1; BASOPHIL # 0.1 10^3/ul (0.0-0.1); BASOPHILS % 0.2 % (0.0-2.0); EOSINOPHILS % 0.1 % (0.0-7.0); HEMOGLOBIN 11.8 g/dl (14.0-18.0); LYMPHOCYTES # 1.4 10^3/ul (0.8-2.9); LYMPHOCYTES % 5.7 % (15.0-51.0); MEAN CORPUSCULAR HEMOGLOBIN 29.1 pg (29.0-33.0); MEAN CORPUSCULAR HGB CONC 31.1 g/dl (32.0-37.0); MEAN CORPUSCULAR VOLUME 93.8 fl (82.0-101.0); MEAN PLATELET VOLUME 10.7 fl (7.4-10.4); MONOCYTE # 1.1 10^3/ul (0.3-0.9); MONOCYTES % 4.2 % (0.0-11.0); NEUTROPHIL # 22.1 10^3/ul (1.6-7.5); NEUTROPHILS % 89.4 % (39.0-77.0); PLATELET COUNT 493 10^3/UL (140-415); POSITIVE DIFF @See below; RED BLOOD COUNT 4.05 10^6/ul (4.70-6.10); RED CELL DISTRIBUTION WIDTH 14.8 % (11.5-14.5)
[2018-03-07 10:41] LABS: Allen Test ACCEPTAB; Arterial Base Excess 4.9 mmol/L (-3.0-3); Arterial Blood Gas Oxygen Sat 84.8 mmHG (95.0-100.0); Arterial COHb 0.3 % (0.0-3.0); Arterial Fraction of Oxyhgb 84.3 % (93.0-99.0); Arterial HCO3 27.7 mmol/L (22.0-26.0); Arterial MetHb 0.3 % (0.0-1.5); Arterial Total Hemglobin 12.2 g/dl (12.0-18.0); Arterial pCO2 34.4 mmhg (35-45); MODE MASK - SIMPLE; Site Right Brachial
[2018-03-07 11:02] LABS: ALANINE AMINOTRANSFERASE 26 IU/L (13-69); ALBUMIN 3.9 g/dl (3.3-4.9); ALKALINE PHOSPHATASE 108 IU/L (42-121); ANION GAP 19 (8-16); ASPARTATE AMINO TRANSFERASE 20 IU/L (15-46); BILIRUBIN,INDIRECT 0.4 mg/dl (0-1.1); BILIRUBIN,TOTAL 0.4 mg/dl (0.2-1.3); BLOOD UREA NITROGEN 25 mg/dl (7-20); CALCIUM 9.9 mg/dl (8.4-10.2); CARBON DIOXIDE 30 mmol/L (21-31); CHLORIDE 101 mmol/L (97-110); CREATININE 0.92 mg/dl (0.61-1.24); GLUCOSE 130 mg/dl (70-220); POTASSIUM 3.9 mmol/L (3.5-5.1); SODIUM 146 mmol/L (135-144); TOTAL PROTEIN 6.9 g/dl (6.1-8.1)
[2018-03-07 11:04] LABS: LACTIC ACID 4.3 mmol/L (0.5-2.0)
[2018-03-07 11:12] LABS: TROPONIN-I < 0.012 ng/ml (0.000-0.120)
[2018-03-07] MEDS: ACETAMINOPHEN 650 MG SUPP PR (11:12)
[2018-03-07] MEDS: PIPER-TAZO 3.375 GM IV (PMX) 100 ML IVPB (11:12)
[2018-03-07 11:33] LABS: ADD UMIC YES; UR ASCORBIC ACID 40 mg/dL (NEGATIVE); UR BILIRUBIN (Dip) NEGATIVE (NEGATIVE); UR BLOOD (Dip) NEGATIVE (NEGATIVE); UR CALCIUM OXALATE CRYSTAL MODERATE /HPF (NONE SEEN); UR CLARITY SLIGHTLY CLOUDY (CLEAR); UR COLOR YELLOW (YELLOW); UR GLUCOSE (Dip) NEGATIVE (NEGATIVE); UR KETONES (Dip) NEGATIVE (NEGATIVE); UR LEUKOCYTE ESTERASE (Dip) 1+ Leu/ul (NEGATIVE); UR NITRITE (Dip) NEGATIVE (NEGATIVE); UR RBC 1 /HPF (0-5); UR SPECIFIC GRAVITY (Dip) 1.015 (1.003-1.030); UR TOTAL PROTEIN (Dip) 1+ mg/dl (NEGATIVE); UR UROBILINOGEN (Dip) NEGATIVE (NEGATIVE); UR WBC 5 /HPF (0-5)
[2018-03-07 11:41] LABS: INR 0.97
[2018-03-07 11:42] LABS: PARTIAL THROMBOPLASTIN TIME 29.8 Sec (25.0-35.0)
[2018-03-07] MEDS: VANCOMYCIN 1 GM (PMX) 250 ML IVPB (11:55)
[2018-03-07 13:19] LABS: LACTIC ACID 4.1 mmol/L (0.5-2.0)
[2018-03-07] MEDS ORDERED: ONDANSETRON 4 MG INJ IV (13:30)
[2018-03-07] MEDS ORDERED: NACL 0.9% 3 ML SYG IV (13:30)
[2018-03-07] MEDS: LACTATED RINGER'S 1,000 ML IV ×2 (13:30)
[2018-03-07] MEDS ORDERED: VANCOMYCIN IV PER PHARMACY XX (14:00)
[2018-03-07] MEDS ORDERED: LABETALOL HCL 20MG INJ IV (16:00)
[2018-03-07] MEDS: CEFEPIME 2GM/50 ML (PMX) 50 ML IVPB (16:08)
[2018-03-07] MEDS: PANTOPRAZOLE 40 MG INJ IV (18:06)
[2018-03-07 19:19] LABS: LACTIC ACID 2.5 mmol/L (0.5-2.0)
[2018-03-07 22:28] LABS: LACTIC ACID 2.4 mmol/L (0.5-2.0)
[2018-03-07 22:34] LABS: AADO2 Arterial 599.7 mmHg (7.0-24.0); Allen Test ACCEPTAB; Arterial Base Excess 2.3 mmol/L (-3.0-3); Arterial Blood Gas Oxygen Sat 95.7 mmHG (95.0-100.0); Arterial COHb 0.3 % (0.0-3.0); Arterial Fraction of Oxyhgb 95.1 % (93.0-99.0); Arterial HCO3 26.1 mmol/L (22.0-26.0); Arterial MetHb 0.3 % (0.0-1.5); Arterial Total Hemglobin 11.6 g/dl (12.0-18.0); Arterial pCO2 37.4 mmhg (35-45); MODE MASK - NRB; Site Left Radial
[2018-03-07] MEDS: METOPROLOL 5 MG INJ IV (23:05)
[2018-03-08] MEDS: CEFEPIME 2GM/50 ML (PMX) 50 ML IVPB ×3 (00:47→20:48)
[2018-03-08] MEDS: LACTATED RINGER'S 1,000 ML IV ×4 (01:57→20:56)
[2018-03-08] MEDS: VANCOMYCIN 500MG/NS (PMX) 100 ML IVPB ×3 (01:58→23:00)
[2018-03-08] MEDS: METOPROLOL 5 MG INJ IV ×4 (03:45→20:49)
[2018-03-08] MEDS: PANTOPRAZOLE 40 MG INJ IV ×2 (05:33→18:17)
[2018-03-08 06:41] LABS: ADD MAN DIFF? NO
[2018-03-08 06:43] LABS: WHITE BLOOD COUNT 25.4 10^3/ul (4.8-10.8)
[2018-03-08 06:43] LABS: ABNORMAL IP MESSAGE 1; BASOPHIL # 0.1 10^3/ul (0.0-0.1); BASOPHILS % 0.3 % (0.0-2.0); HEMATOCRIT 27.5 % (42.0-52.0); HEMOGLOBIN 8.8 g/dl (14.0-18.0); LYMPHOCYTES % 4.1 % (15.0-51.0); MEAN CORPUSCULAR HEMOGLOBIN 29.9 pg (29.0-33.0); MEAN CORPUSCULAR VOLUME 93.5 fl (82.0-101.0); MEAN PLATELET VOLUME 10.8 fl (7.4-10.4); MONOCYTE # 1.1 10^3/ul (0.3-0.9); MONOCYTES % 4.4 % (0.0-11.0); NEUTROPHILS % 90.6 % (39.0-77.0); PLATELET COUNT 309 10^3/UL (140-415); POSITIVE DIFF @See below; RED BLOOD COUNT 2.94 10^6/ul (4.70-6.10); RED CELL DISTRIBUTION WIDTH 14.8 % (11.5-14.5)
[2018-03-08 07:15] LABS: ANION GAP 13 (8-16); BLOOD UREA NITROGEN 18 mg/dl (7-20); CALCIUM 9.1 mg/dl (8.4-10.2); CARBON DIOXIDE 30 mmol/L (21-31); CHLORIDE 106 mmol/L (97-110); CREATININE 0.76 mg/dl (0.61-1.24); GLUCOSE 89 mg/dl (70-220); POTASSIUM 3.5 mmol/L (3.5-5.1); SODIUM 145 mmol/L (135-144)
[2018-03-08] MEDS: SOD CHLORIDE 0.9% 100 ML (09:50)
[2018-03-08] MEDS: IODIXANOL LOCM 100 ML BTL (09:51)
[2018-03-08 22:44] LABS: VANCOMYCIN,TROUGH 11.7 ug/ml (10.0-20.0)
[2018-03-09] MEDS: ALBUTEROL/IPRATROPIUM (NEB) 3 ML AMP INH (03:45)
[2018-03-09] MEDS: METOPROLOL 5 MG INJ IV (04:13)
[2018-03-09] MEDS: PANTOPRAZOLE 40 MG INJ IV ×2 (05:24→17:39)
[2018-03-09] MEDS: LACTATED RINGER'S 1,000 ML IV ×3 (05:26→21:16)
[2018-03-09] MEDS ORDERED: DILTIAZEM-D5W 125MG/125ML DRIP 125 ML IV (06:00)
[2018-03-09 07:56] LABS: ADD MAN DIFF? NO
[2018-03-09] MEDS ORDERED: MAGNESIUM HYDROXIDE 30ML CUP PO (08:00)
[2018-03-09 08:02] LABS: WHITE BLOOD COUNT 21.7 10^3/ul (4.8-10.8)
[2018-03-09 08:02] LABS: ABNORMAL IP MESSAGE 1; BASOPHIL # 0.1 10^3/ul (0.0-0.1); BASOPHILS % 0.4 % (0.0-2.0); HEMATOCRIT 26.9 % (42.0-52.0); HEMOGLOBIN 8.3 g/dl (14.0-18.0); LYMPHOCYTES # 0.6 10^3/ul (0.8-2.9); LYMPHOCYTES % 2.6 % (15.0-51.0); MEAN CORPUSCULAR HEMOGLOBIN 29.1 pg (29.0-33.0); MEAN CORPUSCULAR HGB CONC 30.9 g/dl (32.0-37.0); MEAN CORPUSCULAR VOLUME 94.4 fl (82.0-101.0); MEAN PLATELET VOLUME 11.2 fl (7.4-10.4); MONOCYTE # 1.1 10^3/ul (0.3-0.9); MONOCYTES % 4.9 % (0.0-11.0); NEUTROPHIL # 19.8 10^3/ul (1.6-7.5); NEUTROPHILS % 91.5 % (39.0-77.0); PLATELET COUNT 293 10^3/UL (140-415); POSITIVE DIFF @See below; RED BLOOD COUNT 2.85 10^6/ul (4.70-6.10); RED CELL DISTRIBUTION WIDTH 14.6 % (11.5-14.5)
[2018-03-09 08:20] LABS: ANION GAP 12 (8-16); BLOOD UREA NITROGEN 17 mg/dl (7-20); CALCIUM 9.4 mg/dl (8.4-10.2); CARBON DIOXIDE 32 mmol/L (21-31); CHLORIDE 104 mmol/L (97-110); CREATININE 0.89 mg/dl (0.61-1.24); GLUCOSE 92 mg/dl (70-220); SODIUM 145 mmol/L (135-144)
[2018-03-09] MEDS: CEFEPIME 2GM/50 ML (PMX) 50 ML IVPB ×2 (09:03→21:22)
[2018-03-09] MEDS: SUCRALFATE (100 MG/ML) 10ML CUP GTB ×4 (09:03→21:13)
[2018-03-09] MEDS: MEMANTINE 10 MG TAB GTB ×2 (09:03→21:16)
[2018-03-09] MEDS: METOPROLOL 25 MG TAB GTB ×2 (09:04→21:15)
[2018-03-09] MEDS: POTASSIUM CHLORIDE 20 MEQ POWDER FOR ORAL SOLN GTB ×3 (09:09→13:15)
[2018-03-09 09:23] LABS: MAGNESIUM 1.8 mg/dl (1.7-2.5)
[2018-03-09] MEDS: VANCOMYCIN 750 MG in SOD CHLORIDE 0.9% 150 ML IVPB ×2 (10:37→23:33)
[2018-03-09] MEDS: MAGNESIUM SULFATE 2 GM/50 ML 50 ML IVPB (10:37)
[2018-03-09] MEDS: DONEPEZIL 10 MG TAB NGT (21:13)
[2018-03-09] MEDS: QUETIAPINE 25 MG TAB GTB (21:14)
[2018-03-10] MEDS: PANTOPRAZOLE 40 MG INJ IV ×2 (05:47→17:16)
[2018-03-10 07:13] LABS: ADD MAN DIFF? NO
[2018-03-10 07:16] LABS: BASOPHIL # 0.1 10^3/ul (0.0-0.1); BASOPHILS % 0.4 % (0.0-2.0); EOSINOPHILS # 0.6 10^3/ul (0.0-0.5); EOSINOPHILS % 3.6 % (0.0-7.0); HEMATOCRIT 29.4 % (42.0-52.0); HEMOGLOBIN 8.9 g/dl (14.0-18.0); LYMPHOCYTES # 0.8 10^3/ul (0.8-2.9); MEAN CORPUSCULAR HEMOGLOBIN 28.9 pg (29.0-33.0); MEAN CORPUSCULAR HGB CONC 30.3 g/dl (32.0-37.0); MEAN CORPUSCULAR VOLUME 95.5 fl (82.0-101.0); MEAN PLATELET VOLUME 11.8 fl (7.4-10.4); MONOCYTES % 6.2 % (0.0-11.0); NEUTROPHILS % 84.3 % (39.0-77.0); PLATELET COUNT 309 10^3/UL (140-415); RED BLOOD COUNT 3.08 10^6/ul (4.70-6.10); RED CELL DISTRIBUTION WIDTH 14.4 % (11.5-14.5)
[2018-03-10 07:16] LABS: WHITE BLOOD COUNT 16.7 10^3/ul (4.8-10.8)
[2018-03-10 07:34] LABS: MAGNESIUM 2.2 mg/dl (1.7-2.5)
[2018-03-10 07:36] LABS: ANION GAP 11 (8-16); BLOOD UREA NITROGEN 17 mg/dl (7-20); CALCIUM 9.4 mg/dl (8.4-10.2); CARBON DIOXIDE 29 mmol/L (21-31); CHLORIDE 110 mmol/L (97-110); GLUCOSE 83 mg/dl (70-220); POTASSIUM 3.4 mmol/L (3.5-5.1); SODIUM 147 mmol/L (135-144)
[2018-03-10] MEDS: SUCRALFATE (100 MG/ML) 10ML CUP GTB ×4 (08:33→21:38)
[2018-03-10] MEDS: POTASSIUM CHLORIDE 20 MEQ POWDER FOR ORAL SOLN NGT ×2 (08:34→11:26)
[2018-03-10] MEDS: MEMANTINE 10 MG TAB GTB ×2 (08:34→21:39)
[2018-03-10] MEDS: METOPROLOL 25 MG TAB GTB ×2 (08:34→21:39)
[2018-03-10] MEDS: CEFEPIME 2GM/50 ML (PMX) 50 ML IVPB ×2 (08:35→21:40)
[2018-03-10] MEDS: VANCOMYCIN 750 MG in SOD CHLORIDE 0.9% 150 ML IVPB ×2 (11:26→23:29)
[2018-03-10] MEDS: LACTATED RINGER'S 1,000 ML IV (11:26)
[2018-03-10] MEDS: AMLODIPINE 10 MG TAB NGT (11:31)
[2018-03-10] MEDS: QUETIAPINE 25 MG TAB GTB (21:39)
[2018-03-10] MEDS: DONEPEZIL 10 MG TAB NGT (21:40)
[2018-03-10 22:51] LABS: VANCOMYCIN,TROUGH 18.5 ug/ml (10.0-20.0)
[2018-03-11] MEDS: LACTATED RINGER'S 1,000 ML IV ×2 (05:39→07:50)
[2018-03-11] MEDS: PANTOPRAZOLE 40 MG INJ IV ×2 (05:39→18:15)
[2018-03-11 06:55] LABS: ADD MAN DIFF? NO
[2018-03-11 06:59] LABS: BASOPHIL # 0.1 10^3/ul (0.0-0.1); BASOPHILS % 0.6 % (0.0-2.0); EOSINOPHILS # 0.7 10^3/ul (0.0-0.5); EOSINOPHILS % 5.3 % (0.0-7.0); HEMATOCRIT 30.5 % (42.0-52.0); HEMOGLOBIN 9.6 g/dl (14.0-18.0); LYMPHOCYTES # 0.9 10^3/ul (0.8-2.9); LYMPHOCYTES % 6.8 % (15.0-51.0); MEAN CORPUSCULAR HEMOGLOBIN 29.2 pg (29.0-33.0); MEAN CORPUSCULAR HGB CONC 31.5 g/dl (32.0-37.0); MEAN CORPUSCULAR VOLUME 92.7 fl (82.0-101.0); MEAN PLATELET VOLUME 11.4 fl (7.4-10.4); MONOCYTE # 1.1 10^3/ul (0.3-0.9); MONOCYTES % 7.8 % (0.0-11.0); NEUTROPHIL # 10.8 10^3/ul (1.6-7.5); NEUTROPHILS % 78.9 % (39.0-77.0); NUCLEATED RED BLOOD CELLS% 0.1 /100WBC (0.0-0.0); PLATELET COUNT 307 10^3/UL (140-415); RED BLOOD COUNT 3.29 10^6/ul (4.70-6.10); RED CELL DISTRIBUTION WIDTH 13.9 % (11.5-14.5)
[2018-03-11 06:59] LABS: WHITE BLOOD COUNT 13.7 10^3/ul (4.8-10.8)
[2018-03-11 07:28] LABS: MAGNESIUM 1.8 mg/dl (1.7-2.5)
[2018-03-11 07:35] LABS: ANION GAP 15 (8-16); BLOOD UREA NITROGEN 12 mg/dl (7-20); CARBON DIOXIDE 31 mmol/L (21-31); CHLORIDE 100 mmol/L (97-110); CREATININE 0.76 mg/dl (0.61-1.24); GLUCOSE 109 mg/dl (70-220); SODIUM 143 mmol/L (135-144)
[2018-03-11] MEDS: AMLODIPINE 10 MG TAB NGT (08:43)
[2018-03-11] MEDS: MAGNESIUM SULFATE 2 GM/50 ML 50 ML IVPB (08:43)
[2018-03-11] MEDS: SUCRALFATE (100 MG/ML) 10ML CUP GTB ×4 (08:43→21:23)
[2018-03-11] MEDS: MEMANTINE 10 MG TAB GTB ×2 (08:43→21:22)
[2018-03-11] MEDS: METOPROLOL 25 MG TAB GTB ×3 (08:44→21:23)
[2018-03-11] MEDS: CEFEPIME 2GM/50 ML (PMX) 50 ML IVPB ×2 (11:18→21:28)
[2018-03-11] MEDS: POTASSIUM CHLORIDE 20 MEQ POWDER FOR ORAL SOLN PEG ×3 (11:36→18:14)
[2018-03-11] MEDS: VANCOMYCIN 500MG/NS (PMX) 100 ML IVPB (11:55)
[2018-03-11] MEDS: FUROSEMIDE 40 MG INJ IV (14:55)
[2018-03-11] MEDS: QUETIAPINE 25 MG TAB GTB (21:22)
[2018-03-11] MEDS: DONEPEZIL 10 MG TAB NGT (21:28)
[2018-03-12] MEDS: VANCOMYCIN 500MG/NS (PMX) 100 ML IVPB ×3 (01:33→23:49)
[2018-03-12] MEDS: PANTOPRAZOLE 40 MG INJ IV ×2 (06:34→17:53)
[2018-03-12 08:04] LABS: ADD MAN DIFF? NO
[2018-03-12 08:07] LABS: BASOPHIL # 0.1 10^3/ul (0.0-0.1); BASOPHILS % 0.3 % (0.0-2.0); EOSINOPHILS # 0.8 10^3/ul (0.0-0.5); EOSINOPHILS % 4.7 % (0.0-7.0); HEMATOCRIT 31.6 % (42.0-52.0); HEMOGLOBIN 9.8 g/dl (14.0-18.0); LYMPHOCYTES % 5.9 % (15.0-51.0); MEAN CORPUSCULAR HEMOGLOBIN 28.3 pg (29.0-33.0); MEAN CORPUSCULAR VOLUME 91.3 fl (82.0-101.0); MEAN PLATELET VOLUME 11.5 fl (7.4-10.4); MONOCYTE # 1.3 10^3/ul (0.3-0.9); MONOCYTES % 7.8 % (0.0-11.0); NEUTROPHIL # 13.8 10^3/ul (1.6-7.5); NEUTROPHILS % 80.7 % (39.0-77.0); PLATELET COUNT 312 10^3/UL (140-415); RED BLOOD COUNT 3.46 10^6/ul (4.70-6.10); RED CELL DISTRIBUTION WIDTH 14.2 % (11.5-14.5)
[2018-03-12 08:07] LABS: WHITE BLOOD COUNT 17.1 10^3/ul (4.8-10.8)
[2018-03-12 08:37] LABS: ANION GAP 12 (8-16); BLOOD UREA NITROGEN 16 mg/dl (7-20); CALCIUM 9.6 mg/dl (8.4-10.2); CARBON DIOXIDE 34 mmol/L (21-31); CHLORIDE 102 mmol/L (97-110); CREATININE 0.89 mg/dl (0.61-1.24); GLUCOSE 135 mg/dl (70-220); POTASSIUM 4.2 mmol/L (3.5-5.1); SODIUM 144 mmol/L (135-144)
[2018-03-12] MEDS: MEMANTINE 10 MG TAB GTB ×2 (08:48→22:53)
[2018-03-12] MEDS: AMLODIPINE 10 MG TAB NGT (08:48)
[2018-03-12] MEDS: CEFEPIME 2GM/50 ML (PMX) 50 ML IVPB ×2 (08:48→22:53)
[2018-03-12] MEDS: METOPROLOL 25 MG TAB GTB ×3 (08:48→22:52)
[2018-03-12] MEDS: SUCRALFATE (100 MG/ML) 10ML CUP GTB ×4 (08:48→22:52)
[2018-03-12] MEDS ORDERED: ALBUTEROL/IPRATROPIUM (NEB) 3 ML AMP INH (13:00)
[2018-03-12] MEDS: ALBUTEROL/IPRATROPIUM (NEB) 3 ML AMP HHN ×2 (16:02→23:32)
[2018-03-12] MEDS: QUETIAPINE 25 MG TAB GTB (22:52)
[2018-03-12] MEDS: DONEPEZIL 10 MG TAB NGT (22:52)
[2018-03-13] MEDS: PANTOPRAZOLE 40 MG INJ IV ×2 (05:08→18:30)
[2018-03-13] MEDS: ALBUTEROL/IPRATROPIUM (NEB) 3 ML AMP HHN ×3 (07:39→23:00)
[2018-03-13] MEDS: SUCRALFATE (100 MG/ML) 10ML CUP GTB ×4 (08:58→22:39)
[2018-03-13] MEDS: METOPROLOL 25 MG TAB GTB ×3 (08:58→22:40)
[2018-03-13] MEDS: MEMANTINE 10 MG TAB GTB ×2 (08:58→22:40)
[2018-03-13] MEDS: AMLODIPINE 10 MG TAB NGT (08:58)
[2018-03-13] MEDS: CEFEPIME 2GM/50 ML (PMX) 50 ML IVPB ×2 (08:58→22:38)
[2018-03-13 09:58] LABS: ADD MAN DIFF? NO
[2018-03-13 10:01] LABS: WHITE BLOOD COUNT 14.2 10^3/ul (4.8-10.8)
[2018-03-13 10:01] LABS: BASOPHILS % 0.3 % (0.0-2.0); EOSINOPHILS # 0.7 10^3/ul (0.0-0.5); EOSINOPHILS % 4.8 % (0.0-7.0); HEMATOCRIT 26.9 % (42.0-52.0); HEMOGLOBIN 8.4 g/dl (14.0-18.0); LYMPHOCYTES # 0.8 10^3/ul (0.8-2.9); LYMPHOCYTES % 5.8 % (15.0-51.0); MEAN CORPUSCULAR HEMOGLOBIN 28.6 pg (29.0-33.0); MEAN CORPUSCULAR HGB CONC 31.2 g/dl (32.0-37.0); MEAN CORPUSCULAR VOLUME 91.5 fl (82.0-101.0); MEAN PLATELET VOLUME 11.4 fl (7.4-10.4); MONOCYTE # 1.2 10^3/ul (0.3-0.9); MONOCYTES % 8.4 % (0.0-11.0); NEUTROPHIL # 11.4 10^3/ul (1.6-7.5); NEUTROPHILS % 80.1 % (39.0-77.0); PLATELET COUNT 265 10^3/UL (140-415); RED BLOOD COUNT 2.94 10^6/ul (4.70-6.10); RED CELL DISTRIBUTION WIDTH 14.3 % (11.5-14.5)
[2018-03-13 10:24] LABS: ANION GAP 12 (8-16); BLOOD UREA NITROGEN 21 mg/dl (7-20); CALCIUM 9.2 mg/dl (8.4-10.2); CARBON DIOXIDE 34 mmol/L (21-31); CHLORIDE 97 mmol/L (97-110); CREATININE 0.81 mg/dl (0.61-1.24); GLUCOSE 125 mg/dl (70-220); POTASSIUM 3.4 mmol/L (3.5-5.1); SODIUM 140 mmol/L (135-144)
[2018-03-13 10:26] LABS: MAGNESIUM 1.9 mg/dl (1.7-2.5)
[2018-03-13 10:26] LABS: PHOSPHORUS 2.7 mg/dl (2.5-4.9)
[2018-03-13] MEDS: POTASSIUM CHLORIDE 20 MEQ POWDER FOR ORAL SOLN GTB (12:42)
[2018-03-13] MEDS: VANCOMYCIN 500MG/NS (PMX) 100 ML IVPB (12:43)
[2018-03-13] MEDS: FUROSEMIDE 40 MG INJ IV (15:08)
[2018-03-13] MEDS: MUPIROCIN 2% 22 GM OINT TOP (22:38)
[2018-03-13] MEDS: QUETIAPINE 25 MG TAB GTB (22:40)
[2018-03-13] MEDS: DONEPEZIL 10 MG TAB NGT (22:40)
[2018-03-13 22:57] LABS: VANCOMYCIN,TROUGH 19.4 ug/ml (10.0-20.0)
[2018-03-14] MEDS: PANTOPRAZOLE 40 MG INJ IV ×2 (05:17→17:02)
[2018-03-14] MEDS: VANCOMYCIN 500MG/NS (PMX) 100 ML IVPB (05:18)
[2018-03-14 07:39] LABS: ADD MAN DIFF? NO
[2018-03-14 07:41] LABS: WHITE BLOOD COUNT 13.3 10^3/ul (4.8-10.8)
[2018-03-14 07:41] LABS: BASOPHIL # 0.1 10^3/ul (0.0-0.1); BASOPHILS % 0.4 % (0.0-2.0); EOSINOPHILS # 0.7 10^3/ul (0.0-0.5); EOSINOPHILS % 5.2 % (0.0-7.0); HEMOGLOBIN 8.7 g/dl (14.0-18.0); LYMPHOCYTES % 7.2 % (15.0-51.0); MEAN CORPUSCULAR HEMOGLOBIN 28.4 pg (29.0-33.0); MEAN CORPUSCULAR HGB CONC 31.1 g/dl (32.0-37.0); MEAN CORPUSCULAR VOLUME 91.5 fl (82.0-101.0); MONOCYTE # 1.2 10^3/ul (0.3-0.9); MONOCYTES % 8.7 % (0.0-11.0); NEUTROPHIL # 10.3 10^3/ul (1.6-7.5); NEUTROPHILS % 77.7 % (39.0-77.0); PLATELET COUNT 274 10^3/UL (140-415); RED BLOOD COUNT 3.06 10^6/ul (4.70-6.10); RED CELL DISTRIBUTION WIDTH 14.1 % (11.5-14.5)
[2018-03-14] MEDS: ALBUTEROL/IPRATROPIUM (NEB) 3 ML AMP HHN (07:55)
[2018-03-14 08:15] LABS: ANION GAP 15 (8-16); BLOOD UREA NITROGEN 26 mg/dl (7-20); CALCIUM 9.4 mg/dl (8.4-10.2); CARBON DIOXIDE 33 mmol/L (21-31); CHLORIDE 97 mmol/L (97-110); CREATININE 0.93 mg/dl (0.61-1.24); GLUCOSE 126 mg/dl (70-220); POTASSIUM 3.5 mmol/L (3.5-5.1); SODIUM 141 mmol/L (135-144)
[2018-03-14 08:16] LABS: PHOSPHORUS 2.8 mg/dl (2.5-4.9)
[2018-03-14 08:16] LABS: MAGNESIUM 1.9 mg/dl (1.7-2.5)
[2018-03-14] MEDS: METOPROLOL 25 MG TAB GTB ×3 (08:31→20:21)
[2018-03-14] MEDS: SUCRALFATE (100 MG/ML) 10ML CUP GTB ×4 (08:31→20:20)
[2018-03-14] MEDS: AMLODIPINE 10 MG TAB NGT (08:32)
[2018-03-14] MEDS: MEMANTINE 10 MG TAB GTB ×2 (08:32→20:20)
[2018-03-14] MEDS: MUPIROCIN 2% 22 GM OINT TOP ×2 (08:32→20:26)
[2018-03-14] MEDS: CEFEPIME 2GM/50 ML (PMX) 50 ML IVPB ×2 (08:34→20:25)
[2018-03-14] MEDS: ACETAMINOPHEN 650MG/20.3ML CUP GTB (09:49)
[2018-03-14] MEDS: QUETIAPINE 25 MG TAB GTB (20:20)
[2018-03-14] MEDS: DONEPEZIL 10 MG TAB NGT (20:25)
[2018-03-14] MEDS: VANCOMYCIN 750 MG in SOD CHLORIDE 0.9% 150 ML IVPB (21:48)
[2018-03-15] MEDS: ALBUTEROL/IPRATROPIUM (NEB) 3 ML AMP HHN ×4 (00:05→23:50)
[2018-03-15] MEDS: ACETAMINOPHEN 650MG/20.3ML CUP GTB (03:25)
[2018-03-15] MEDS: PANTOPRAZOLE 40 MG INJ IV ×2 (05:52→16:32)
[2018-03-15] MEDS: MEMANTINE 10 MG TAB GTB ×2 (08:10→21:45)
[2018-03-15] MEDS: METOPROLOL 25 MG TAB GTB ×3 (08:11→21:45)
[2018-03-15] MEDS: AMLODIPINE 10 MG TAB NGT (08:11)
[2018-03-15] MEDS: MUPIROCIN 2% 22 GM OINT TOP ×2 (08:11→21:45)
[2018-03-15] MEDS: CEFEPIME 2GM/50 ML (PMX) 50 ML IVPB ×2 (08:11→21:50)
[2018-03-15] MEDS: SUCRALFATE (100 MG/ML) 10ML CUP GTB ×4 (08:11→21:44)
[2018-03-15 08:48] LABS: ADD MAN DIFF? NO
[2018-03-15 09:01] LABS: BASOPHIL # 0.1 10^3/ul (0.0-0.1); BASOPHILS % 0.5 % (0.0-2.0); EOSINOPHILS # 0.4 10^3/ul (0.0-0.5); EOSINOPHILS % 2.3 % (0.0-7.0); HEMATOCRIT 26.1 % (42.0-52.0); HEMOGLOBIN 8.1 g/dl (14.0-18.0); LYMPHOCYTES # 1.1 10^3/ul (0.8-2.9); LYMPHOCYTES % 6.6 % (15.0-51.0); MEAN CORPUSCULAR HEMOGLOBIN 28.2 pg (29.0-33.0); MEAN CORPUSCULAR VOLUME 90.9 fl (82.0-101.0); MEAN PLATELET VOLUME 12.3 fl (7.4-10.4); MONOCYTE # 1.1 10^3/ul (0.3-0.9); MONOCYTES % 6.6 % (0.0-11.0); NEUTROPHIL # 13.7 10^3/ul (1.6-7.5); NEUTROPHILS % 83.1 % (39.0-77.0); PLATELET COUNT 279 10^3/UL (140-415); RED BLOOD COUNT 2.87 10^6/ul (4.70-6.10); RED CELL DISTRIBUTION WIDTH 14.2 % (11.5-14.5)
[2018-03-15 09:01] LABS: WHITE BLOOD COUNT 16.5 10^3/ul (4.8-10.8)
[2018-03-15 09:26] LABS: ANION GAP 12 (8-16); BLOOD UREA NITROGEN 30 mg/dl (7-20); CALCIUM 9.3 mg/dl (8.4-10.2); CARBON DIOXIDE 30 mmol/L (21-31); CHLORIDE 102 mmol/L (97-110); CREATININE 0.92 mg/dl (0.61-1.24); GLUCOSE 120 mg/dl (70-220); POTASSIUM 3.7 mmol/L (3.5-5.1); SODIUM 140 mmol/L (135-144)
[2018-03-15 09:30] LABS: MAGNESIUM 1.9 mg/dl (1.7-2.5)
[2018-03-15] MEDS: QUETIAPINE 25 MG TAB GTB (21:44)
[2018-03-15] MEDS: DONEPEZIL 10 MG TAB NGT (21:50)
[2018-03-15] MEDS: VANCOMYCIN 750 MG in SOD CHLORIDE 0.9% 150 ML IVPB (22:44)
[2018-03-16] MEDS: PANTOPRAZOLE 40 MG INJ IV ×2 (05:08→16:59)
[2018-03-16] MEDS: ALBUTEROL/IPRATROPIUM (NEB) 3 ML AMP HHN ×2 (07:57→16:28)
[2018-03-16] MEDS: SUCRALFATE (100 MG/ML) 10ML CUP GTB ×4 (08:29→21:57)
[2018-03-16] MEDS: MEMANTINE 10 MG TAB GTB ×2 (08:29→21:57)
[2018-03-16] MEDS: AMLODIPINE 10 MG TAB NGT (08:29)
[2018-03-16] MEDS: METOPROLOL 25 MG TAB GTB ×3 (08:30→21:59)
[2018-03-16] MEDS: MUPIROCIN 2% 22 GM OINT TOP ×2 (08:30→21:58)
[2018-03-16] MEDS: CEFEPIME 2GM/50 ML (PMX) 50 ML IVPB ×2 (08:30→21:58)
[2018-03-16 08:52] LABS: ADD MAN DIFF? NO
[2018-03-16 09:04] LABS: WHITE BLOOD COUNT 17.2 10^3/ul (4.8-10.8)
[2018-03-16 09:04] LABS: BASOPHIL # 0.1 10^3/ul (0.0-0.1); BASOPHILS % 0.5 % (0.0-2.0); EOSINOPHILS # 0.7 10^3/ul (0.0-0.5); HEMATOCRIT 28.2 % (42.0-52.0); HEMOGLOBIN 8.7 g/dl (14.0-18.0); LYMPHOCYTES % 5.9 % (15.0-51.0); MEAN CORPUSCULAR HGB CONC 30.9 g/dl (32.0-37.0); MEAN CORPUSCULAR VOLUME 90.7 fl (82.0-101.0); MEAN PLATELET VOLUME 12.7 fl (7.4-10.4); MONOCYTE # 1.3 10^3/ul (0.3-0.9); MONOCYTES % 7.4 % (0.0-11.0); NEUTROPHILS % 81.4 % (39.0-77.0); PLATELET COUNT 283 10^3/UL (140-415); RED BLOOD COUNT 3.11 10^6/ul (4.70-6.10); RED CELL DISTRIBUTION WIDTH 14.2 % (11.5-14.5)
[2018-03-16 09:20] LABS: ANION GAP 11 (8-16); BLOOD UREA NITROGEN 28 mg/dl (7-20); CALCIUM 9.8 mg/dl (8.4-10.2); CARBON DIOXIDE 32 mmol/L (21-31); CHLORIDE 101 mmol/L (97-110); CREATININE 0.89 mg/dl (0.61-1.24); GLUCOSE 131 mg/dl (70-220); POTASSIUM 3.4 mmol/L (3.5-5.1); SODIUM 141 mmol/L (135-144)
[2018-03-16] MEDS: COLLAGENASE 5 GM (UD JAR) TOP (09:57)
[2018-03-16] MEDS: BALSAM PERU/CASTOR OIL 60 GM TUBE TOP ×2 (09:57→21:58)
[2018-03-16] MEDS: NYSTATIN 30 GM POWDER BTL TOP ×2 (09:57→21:58)
[2018-03-16] MEDS: POTASSIUM CHLORIDE 20 MEQ POWDER FOR ORAL SOLN GTB (12:51)
[2018-03-16] MEDS: QUETIAPINE 25 MG TAB GTB (21:57)
[2018-03-16] MEDS: DONEPEZIL 10 MG TAB NGT (21:58)
[2018-03-16] MEDS: VANCOMYCIN 750 MG in SOD CHLORIDE 0.9% 150 ML IVPB (21:59)
[2018-03-17] MEDS: ALBUTEROL/IPRATROPIUM (NEB) 3 ML AMP HHN ×4 (00:48→23:21)
[2018-03-17] MEDS: PANTOPRAZOLE 40 MG INJ IV ×2 (05:40→17:00)
[2018-03-17 08:44] LABS: ADD MAN DIFF? NO
[2018-03-17 08:51] LABS: WHITE BLOOD COUNT 18.9 10^3/ul (4.8-10.8)
[2018-03-17 08:51] LABS: BASOPHIL # 0.1 10^3/ul (0.0-0.1); BASOPHILS % 0.4 % (0.0-2.0); EOSINOPHILS # 0.7 10^3/ul (0.0-0.5); EOSINOPHILS % 3.5 % (0.0-7.0); HEMATOCRIT 29.4 % (42.0-52.0); HEMOGLOBIN 8.9 g/dl (14.0-18.0); LYMPHOCYTES # 1.1 10^3/ul (0.8-2.9); MEAN CORPUSCULAR HEMOGLOBIN 27.7 pg (29.0-33.0); MEAN CORPUSCULAR HGB CONC 30.3 g/dl (32.0-37.0); MEAN CORPUSCULAR VOLUME 91.6 fl (82.0-101.0); MEAN PLATELET VOLUME 12.4 fl (7.4-10.4); MONOCYTE # 1.3 10^3/ul (0.3-0.9); MONOCYTES % 6.9 % (0.0-11.0); NEUTROPHIL # 15.6 10^3/ul (1.6-7.5); NEUTROPHILS % 82.6 % (39.0-77.0); PLATELET COUNT 322 10^3/UL (140-415); RED BLOOD COUNT 3.21 10^6/ul (4.70-6.10); RED CELL DISTRIBUTION WIDTH 14.3 % (11.5-14.5)
[2018-03-17] MEDS: SUCRALFATE (100 MG/ML) 10ML CUP GTB ×4 (09:04→21:21)
[2018-03-17] MEDS: CEFEPIME 2GM/50 ML (PMX) 50 ML IVPB ×2 (09:04→21:31)
[2018-03-17] MEDS: MEMANTINE 10 MG TAB GTB ×2 (09:05→21:21)
[2018-03-17] MEDS: METOPROLOL 25 MG TAB GTB ×3 (09:05→21:22)
[2018-03-17] MEDS: AMLODIPINE 10 MG TAB NGT (09:05)
[2018-03-17] MEDS: COLLAGENASE 5 GM (UD JAR) TOP (09:06)
[2018-03-17] MEDS: NYSTATIN 30 GM POWDER BTL TOP ×2 (09:06→21:22)
[2018-03-17] MEDS: BALSAM PERU/CASTOR OIL 60 GM TUBE TOP ×2 (09:06→21:23)
[2018-03-17] MEDS: MUPIROCIN 2% 22 GM OINT TOP ×2 (09:06→21:23)
[2018-03-17 09:13] LABS: PHOSPHORUS 3.2 mg/dl (2.5-4.9)
[2018-03-17 09:13] LABS: ANION GAP 9 (8-16); BLOOD UREA NITROGEN 31 mg/dl (7-20); CALCIUM 10.1 mg/dl (8.4-10.2); CARBON DIOXIDE 31 mmol/L (21-31); CHLORIDE 104 mmol/L (97-110); CREATININE 0.92 mg/dl (0.61-1.24); GLUCOSE 131 mg/dl (70-220); MAGNESIUM 2.1 mg/dl (1.7-2.5); POTASSIUM 4.1 mmol/L (3.5-5.1); SODIUM 140 mmol/L (135-144)
[2018-03-17 21:06] LABS: VANCOMYCIN,TROUGH 16.3 ug/ml (10.0-20.0)
[2018-03-17] MEDS: QUETIAPINE 25 MG TAB GTB (21:21)
[2018-03-17] MEDS: DONEPEZIL 10 MG TAB NGT (21:21)
[2018-03-17] MEDS: ACETAMINOPHEN 650MG/20.3ML CUP GTB (21:21)
[2018-03-17] MEDS: VANCOMYCIN 750 MG in SOD CHLORIDE 0.9% 150 ML IVPB (22:39)
[2018-03-18] MEDS: PANTOPRAZOLE 40 MG INJ IV ×2 (06:12→17:12)
[2018-03-18 06:50] LABS: WHITE BLOOD COUNT 31.9 10^3/ul (4.8-10.8)
[2018-03-18 06:50] LABS: ABNORMAL IP MESSAGE 1; HEMATOCRIT 24.3 % (42.0-52.0); HEMOGLOBIN 7.3 g/dl (14.0-18.0); MEAN CORPUSCULAR HEMOGLOBIN 27.3 pg (29.0-33.0); MEAN PLATELET VOLUME 12.7 fl (7.4-10.4); PLATELET COUNT 301 10^3/UL (140-415); POSITIVE DIFF @See below; RED BLOOD COUNT 2.67 10^6/ul (4.70-6.10); RED CELL DISTRIBUTION WIDTH 14.4 % (11.5-14.5)
[2018-03-18 07:17] LABS: ADD MAN DIFF? YES
[2018-03-18] MEDS: ALBUTEROL/IPRATROPIUM (NEB) 3 ML AMP HHN ×2 (07:46→16:07)
[2018-03-18 08:08] LABS: ANION GAP 9 (8-16); BLOOD UREA NITROGEN 36 mg/dl (7-20); CALCIUM 9.7 mg/dl (8.4-10.2); CARBON DIOXIDE 30 mmol/L (21-31); CHLORIDE 107 mmol/L (97-110); CREATININE 0.96 mg/dl (0.61-1.24); GLUCOSE 122 mg/dl (70-220); POTASSIUM 3.7 mmol/L (3.5-5.1); SODIUM 142 mmol/L (135-144)
[2018-03-18 08:17] LABS: MAGNESIUM 2.1 mg/dl (1.7-2.5)
[2018-03-18] MEDS: CEFEPIME 2GM/50 ML (PMX) 50 ML IVPB ×2 (08:54→22:00)
[2018-03-18] MEDS: MEMANTINE 10 MG TAB GTB ×2 (08:55→21:59)
[2018-03-18] MEDS: AMLODIPINE 10 MG TAB NGT (08:55)
[2018-03-18] MEDS: METOPROLOL 25 MG TAB GTB ×3 (08:55→21:59)
[2018-03-18] MEDS: MUPIROCIN 2% 22 GM OINT TOP ×2 (08:55→22:00)
[2018-03-18] MEDS: SUCRALFATE (100 MG/ML) 10ML CUP GTB ×4 (08:55→21:58)
[2018-03-18] MEDS: BALSAM PERU/CASTOR OIL 60 GM TUBE TOP ×2 (08:56→22:00)
[2018-03-18] MEDS: COLLAGENASE 5 GM (UD JAR) TOP (08:56)
[2018-03-18] MEDS: NYSTATIN 30 GM POWDER BTL TOP ×2 (08:57→22:00)
[2018-03-18 09:30] LABS: BAND NEUTROPHILS #M 1.5 10^3/ul (0.0-0.6); BAND NEUTROPHILS % (M) 5 % (0-4); BASOPHIL #M 0.3 10^3/ul (0.0-0.0); BASOPHILS % (M) 1 % (0-2); GIANT THROMBO% (M) 3 % (0-0); LYMPHOCYTES #M 0.6 10^3/ul (0.8-2.9); LYMPHOCYTES % (M) 2 % (15-51); MONOCYTE #M 0.6 10^3/ul (0.3-0.9); MONOCYTES % (M) 2 % (0-11); PLATELET ESTIMATE NORMAL; POLYCHROMASIA 1+ (0-0); SEG NEUT #M 29.2 10^3/ul (1.6-7.5); SEGMENTED NEUTROPHILS (M) % 90 % (39-77); SMUDGE%M 8 % (0-0)
[2018-03-18 09:31] LABS: PATH REVIEW? YES
[2018-03-18] MEDS: DONEPEZIL 10 MG TAB NGT (21:59)
[2018-03-18] MEDS: QUETIAPINE 25 MG TAB GTB (21:59)
[2018-03-18] MEDS: VANCOMYCIN 500MG/NS (PMX) 100 ML IVPB (22:49)
[2018-03-19] MEDS: ALBUTEROL/IPRATROPIUM (NEB) 3 ML AMP HHN ×3 (00:33→17:00)
[2018-03-19] MEDS: PANTOPRAZOLE 40 MG INJ IV ×2 (06:24→18:46)
[2018-03-19 08:28] LABS: ADD MAN DIFF? NO
[2018-03-19 08:33] LABS: WHITE BLOOD COUNT 20.9 10^3/ul (4.8-10.8)
[2018-03-19 08:33] LABS: BASOPHIL # 0.1 10^3/ul (0.0-0.1); BASOPHILS % 0.4 % (0.0-2.0); EOSINOPHILS # 0.8 10^3/ul (0.0-0.5); EOSINOPHILS % 3.9 % (0.0-7.0); HEMATOCRIT 27.3 % (42.0-52.0); HEMOGLOBIN 8.4 g/dl (14.0-18.0); LYMPHOCYTES # 0.9 10^3/ul (0.8-2.9); LYMPHOCYTES % 4.1 % (15.0-51.0); MEAN CORPUSCULAR HEMOGLOBIN 28.2 pg (29.0-33.0); MEAN CORPUSCULAR HGB CONC 30.8 g/dl (32.0-37.0); MEAN CORPUSCULAR VOLUME 91.6 fl (82.0-101.0); MEAN PLATELET VOLUME 12.6 fl (7.4-10.4); MONOCYTE # 1.4 10^3/ul (0.3-0.9); MONOCYTES % 6.6 % (0.0-11.0); NEUTROPHIL # 17.6 10^3/ul (1.6-7.5); NEUTROPHILS % 84.4 % (39.0-77.0); PLATELET COUNT 388 10^3/UL (140-415); RED BLOOD COUNT 2.98 10^6/ul (4.70-6.10); RED CELL DISTRIBUTION WIDTH 14.6 % (11.5-14.5)
[2018-03-19 08:53] LABS: PHOSPHORUS 3.2 mg/dl (2.5-4.9)
[2018-03-19 08:53] LABS: MAGNESIUM 2.2 mg/dl (1.7-2.5)
[2018-03-19 08:58] LABS: ANION GAP 9 (8-16); BLOOD UREA NITROGEN 36 mg/dl (7-20); CALCIUM 10.5 mg/dl (8.4-10.2); CARBON DIOXIDE 32 mmol/L (21-31); CHLORIDE 106 mmol/L (97-110); CREATININE 0.97 mg/dl (0.61-1.24); GLUCOSE 113 mg/dl (70-220); POTASSIUM 3.2 mmol/L (3.5-5.1); SODIUM 144 mmol/L (135-144)
[2018-03-19] MEDS: SUCRALFATE (100 MG/ML) 10ML CUP GTB ×4 (09:45→21:15)
[2018-03-19] MEDS: METOPROLOL 25 MG TAB GTB ×3 (09:46→21:16)
[2018-03-19] MEDS: AMLODIPINE 10 MG TAB NGT (09:46)
[2018-03-19] MEDS: MEMANTINE 10 MG TAB GTB ×2 (09:46→21:16)
[2018-03-19] MEDS: MUPIROCIN 2% 22 GM OINT TOP ×2 (09:47→21:17)
[2018-03-19] MEDS: BALSAM PERU/CASTOR OIL 60 GM TUBE TOP ×2 (09:47→21:17)
[2018-03-19] MEDS: COLLAGENASE 5 GM (UD JAR) TOP (09:47)
[2018-03-19] MEDS: NYSTATIN 30 GM POWDER BTL TOP ×2 (09:48→21:17)
[2018-03-19] MEDS: CEFEPIME 2GM/50 ML (PMX) 50 ML IVPB ×2 (09:58→21:17)
[2018-03-19] MEDS: POTASSIUM CHLORIDE 20 MEQ POWDER FOR ORAL SOLN GTB ×3 (12:21→18:37)
[2018-03-19] MEDS: QUETIAPINE 25 MG TAB GTB (21:15)
[2018-03-19] MEDS: DONEPEZIL 10 MG TAB NGT (21:16)
[2018-03-19] MEDS: VANCOMYCIN 500MG/NS (PMX) 100 ML IVPB (21:18)
[2018-03-20] MEDS: ALBUTEROL/IPRATROPIUM (NEB) 3 ML AMP HHN ×3 (00:14→15:57)
[2018-03-20 07:28] LABS: ADD MAN DIFF? NO
[2018-03-20 07:45] LABS: WHITE BLOOD COUNT 15.8 10^3/ul (4.8-10.8)
[2018-03-20 07:45] LABS: BASOPHIL # 0.1 10^3/ul (0.0-0.1); BASOPHILS % 0.3 % (0.0-2.0); EOSINOPHILS # 0.8 10^3/ul (0.0-0.5); EOSINOPHILS % 4.9 % (0.0-7.0); HEMATOCRIT 25.5 % (42.0-52.0); HEMOGLOBIN 7.7 g/dl (14.0-18.0); LYMPHOCYTES % 6.1 % (15.0-51.0); MEAN CORPUSCULAR HGB CONC 30.2 g/dl (32.0-37.0); MEAN CORPUSCULAR VOLUME 92.7 fl (82.0-101.0); MEAN PLATELET VOLUME 12.2 fl (7.4-10.4); MONOCYTES % 6.2 % (0.0-11.0); NEUTROPHIL # 12.9 10^3/ul (1.6-7.5); PLATELET COUNT 395 10^3/UL (140-415); RED BLOOD COUNT 2.75 10^6/ul (4.70-6.10); RED CELL DISTRIBUTION WIDTH 14.6 % (11.5-14.5)
[2018-03-20 08:01] LABS: ANION GAP 6 (8-16); BLOOD UREA NITROGEN 39 mg/dl (7-20); CALCIUM 10.8 mg/dl (8.4-10.2); CARBON DIOXIDE 33 mmol/L (21-31); CHLORIDE 112 mmol/L (97-110); CREATININE 1.03 mg/dl (0.61-1.24); GLUCOSE 122 mg/dl (70-220); POTASSIUM 4.7 mmol/L (3.5-5.1); SODIUM 146 mmol/L (135-144)
[2018-03-20] MEDS: SUCRALFATE (100 MG/ML) 10ML CUP GTB ×4 (09:16→21:01)
[2018-03-20] MEDS: METOPROLOL 25 MG TAB GTB ×3 (09:17→21:02)
[2018-03-20] MEDS: AMLODIPINE 10 MG TAB NGT (09:17)
[2018-03-20] MEDS: MEMANTINE 10 MG TAB GTB ×2 (09:17→21:01)
[2018-03-20] MEDS: NYSTATIN 30 GM POWDER BTL TOP ×2 (09:18→21:04)
[2018-03-20] MEDS: MUPIROCIN 2% 22 GM OINT TOP ×2 (09:18→21:04)
[2018-03-20] MEDS: COLLAGENASE 5 GM (UD JAR) TOP (09:18)
[2018-03-20] MEDS: BALSAM PERU/CASTOR OIL 60 GM TUBE TOP ×2 (09:18→21:04)
[2018-03-20] MEDS: CEFEPIME 2GM/50 ML (PMX) 50 ML IVPB ×2 (09:46→21:02)
[2018-03-20 11:52] LABS: MAGNESIUM 2.1 mg/dl (1.7-2.5)
[2018-03-20] MEDS: PANTOPRAZOLE 40 MG INJ IV (17:53)
[2018-03-20] MEDS: DONEPEZIL 10 MG TAB NGT (21:01)
[2018-03-20] MEDS: QUETIAPINE 25 MG TAB GTB (21:01)
[2018-03-20] MEDS: VANCOMYCIN 500MG/NS (PMX) 100 ML IVPB (23:15)
[2018-03-21] MEDS: ALBUTEROL/IPRATROPIUM (NEB) 3 ML AMP HHN ×4 (00:59→23:57)
[2018-03-21] MEDS: PANTOPRAZOLE 40 MG INJ IV ×2 (05:40→18:32)
[2018-03-21 07:15] LABS: ADD MAN DIFF? NO
[2018-03-21 07:19] LABS: BASOPHIL # 0.1 10^3/ul (0.0-0.1); BASOPHILS % 0.5 % (0.0-2.0); EOSINOPHILS % 6.9 % (0.0-7.0); HEMATOCRIT 25.5 % (42.0-52.0); HEMOGLOBIN 7.6 g/dl (14.0-18.0); LYMPHOCYTES % 7.1 % (15.0-51.0); MEAN CORPUSCULAR HEMOGLOBIN 27.3 pg (29.0-33.0); MEAN CORPUSCULAR HGB CONC 29.8 g/dl (32.0-37.0); MEAN CORPUSCULAR VOLUME 91.7 fl (82.0-101.0); MEAN PLATELET VOLUME 11.8 fl (7.4-10.4); MONOCYTES % 6.9 % (0.0-11.0); NEUTROPHIL # 11.4 10^3/ul (1.6-7.5); PLATELET COUNT 433 10^3/UL (140-415); RED BLOOD COUNT 2.78 10^6/ul (4.70-6.10); RED CELL DISTRIBUTION WIDTH 14.5 % (11.5-14.5)
[2018-03-21 07:19] LABS: WHITE BLOOD COUNT 14.6 10^3/ul (4.8-10.8)
[2018-03-21 07:54] LABS: ANION GAP 11 (8-16); BLOOD UREA NITROGEN 36 mg/dl (7-20); CALCIUM 10.6 mg/dl (8.4-10.2); CARBON DIOXIDE 32 mmol/L (21-31); CHLORIDE 107 mmol/L (97-110); CREATININE 0.99 mg/dl (0.61-1.24); GLUCOSE 105 mg/dl (70-220); POTASSIUM 3.8 mmol/L (3.5-5.1); SODIUM 146 mmol/L (135-144)
[2018-03-21] MEDS: AMLODIPINE 10 MG TAB NGT (08:55)
[2018-03-21] MEDS: COLLAGENASE 5 GM (UD JAR) TOP (08:55)
[2018-03-21] MEDS: CEFEPIME 2GM/50 ML (PMX) 50 ML IVPB ×2 (08:55→20:50)
[2018-03-21] MEDS: SUCRALFATE (100 MG/ML) 10ML CUP GTB ×4 (08:55→20:52)
[2018-03-21] MEDS: METOPROLOL 25 MG TAB GTB ×3 (08:56→20:54)
[2018-03-21] MEDS: MUPIROCIN 2% 22 GM OINT TOP ×2 (08:56→20:53)
[2018-03-21] MEDS: BALSAM PERU/CASTOR OIL 60 GM TUBE TOP ×2 (08:56→20:53)
[2018-03-21] MEDS: NYSTATIN 30 GM POWDER BTL TOP ×2 (08:56→20:53)
[2018-03-21] MEDS: MEMANTINE 10 MG TAB GTB ×2 (08:56→20:51)
[2018-03-21] MEDS: DONEPEZIL 10 MG TAB NGT (20:51)
[2018-03-21] MEDS: QUETIAPINE 25 MG TAB GTB (20:52)
[2018-03-21] MEDS: ACETAMINOPHEN 650MG/20.3ML CUP GTB (22:44)
[2018-03-22] MEDS: PANTOPRAZOLE 40 MG INJ IV ×2 (06:20→18:11)
[2018-03-22 06:37] LABS: ADD MAN DIFF? NO
[2018-03-22 06:46] LABS: BASOPHIL # 0.1 10^3/ul (0.0-0.1); BASOPHILS % 0.6 % (0.0-2.0); EOSINOPHILS # 0.7 10^3/ul (0.0-0.5); EOSINOPHILS % 6.7 % (0.0-7.0); HEMATOCRIT 23.8 % (42.0-52.0); HEMOGLOBIN 7.3 g/dl (14.0-18.0); LYMPHOCYTES % 8.8 % (15.0-51.0); MEAN CORPUSCULAR HGB CONC 30.7 g/dl (32.0-37.0); MEAN CORPUSCULAR VOLUME 91.2 fl (82.0-101.0); MEAN PLATELET VOLUME 11.5 fl (7.4-10.4); MONOCYTE # 0.8 10^3/ul (0.3-0.9); MONOCYTES % 7.2 % (0.0-11.0); NEUTROPHIL # 8.4 10^3/ul (1.6-7.5); PLATELET COUNT 415 10^3/UL (140-415); RED BLOOD COUNT 2.61 10^6/ul (4.70-6.10); RED CELL DISTRIBUTION WIDTH 14.4 % (11.5-14.5)
[2018-03-22 07:15] LABS: ANION GAP 9 (8-16); BLOOD UREA NITROGEN 38 mg/dl (7-20); CALCIUM 10.4 mg/dl (8.4-10.2); CARBON DIOXIDE 32 mmol/L (21-31); CHLORIDE 108 mmol/L (97-110); CREATININE 1.02 mg/dl (0.61-1.24); GLUCOSE 117 mg/dl (70-220); POTASSIUM 3.4 mmol/L (3.5-5.1); SODIUM 146 mmol/L (135-144)
[2018-03-22] MEDS: ALBUTEROL/IPRATROPIUM (NEB) 3 ML AMP HHN ×2 (08:29→16:26)
[2018-03-22] MEDS: METOPROLOL 25 MG TAB GTB ×3 (09:00→21:53)
[2018-03-22] MEDS: MEMANTINE 10 MG TAB GTB ×2 (09:42→21:52)
[2018-03-22] MEDS: SUCRALFATE (100 MG/ML) 10ML CUP GTB ×4 (09:42→21:52)
[2018-03-22] MEDS: POTASSIUM CHLORIDE 20 MEQ POWDER FOR ORAL SOLN GTB ×2 (09:42→10:00)
[2018-03-22] MEDS: MUPIROCIN 2% 22 GM OINT TOP ×2 (09:43→21:54)
[2018-03-22] MEDS: NYSTATIN 30 GM POWDER BTL TOP ×2 (09:43→21:52)
[2018-03-22] MEDS: AMLODIPINE 10 MG TAB NGT (09:43)
[2018-03-22] MEDS: BALSAM PERU/CASTOR OIL 60 GM TUBE TOP ×2 (09:44→21:55)
[2018-03-22] MEDS: COLLAGENASE 5 GM (UD JAR) TOP (09:44)
[2018-03-22] MEDS: CEFEPIME 2GM/50 ML (PMX) 50 ML IVPB ×2 (09:44→21:52)
[2018-03-22] MEDS: QUETIAPINE 25 MG TAB GTB (21:52)
[2018-03-22] MEDS: DONEPEZIL 10 MG TAB NGT (22:06)
[2018-03-23] MEDS: ALBUTEROL/IPRATROPIUM (NEB) 3 ML AMP HHN ×3 (00:19→15:47)
[2018-03-23] MEDS: PANTOPRAZOLE 40 MG INJ IV ×2 (06:43→17:57)
[2018-03-23 07:17] LABS: MAGNESIUM 2.2 mg/dl (1.7-2.5)
[2018-03-23 07:26] LABS: ANION GAP 9 (8-16); BLOOD UREA NITROGEN 44 mg/dl (7-20); CALCIUM 10.5 mg/dl (8.4-10.2); CARBON DIOXIDE 31 mmol/L (21-31); CHLORIDE 111 mmol/L (97-110); CREATININE 1.07 mg/dl (0.61-1.24); GLUCOSE 112 mg/dl (70-220); POTASSIUM 3.7 mmol/L (3.5-5.1); SODIUM 147 mmol/L (135-144)
[2018-03-23] MEDS: CEFEPIME 2GM/50 ML (PMX) 50 ML IVPB (09:11)
[2018-03-23] MEDS: MEMANTINE 10 MG TAB GTB (09:12)
[2018-03-23] MEDS: POTASSIUM CHLORIDE 20 MEQ POWDER FOR ORAL SOLN NGT (09:12)
[2018-03-23] MEDS: METOPROLOL 25 MG TAB GTB ×2 (09:13→13:21)
[2018-03-23] MEDS: SUCRALFATE (100 MG/ML) 10ML CUP GTB ×3 (09:13→17:57)
[2018-03-23] MEDS: AMLODIPINE 10 MG TAB NGT (09:14)
[2018-03-23] MEDS: NYSTATIN 30 GM POWDER BTL TOP (09:15)
[2018-03-23] MEDS: MUPIROCIN 2% 22 GM OINT TOP (09:15)
[2018-03-23] MEDS: BALSAM PERU/CASTOR OIL 60 GM TUBE TOP (09:15)
[2018-03-23] MEDS: COLLAGENASE 5 GM (UD JAR) TOP (09:15)
== END 2018-03-23 18:49 | DRG 871 ==
LOC: E/R 10:09 → TEL 11:44
PROC: 0DW6XUZ Revision of Feeding Device in Stomach, External Approach (ICD-10-PCS; principal; 2018-03-15)
DX: A41.9 Sepsis, unspecified organism (principal); J96.01 Acute respiratory failure with hypoxia; J69.0 Pneumonitis due to inhalation of food and vomit; E44.0 Moderate protein-calorie malnutrition; Z68.20 Body mass index [BMI] 20.0-20.9, adult; I10 Essential (primary) hypertension; G30.9 Alzheimer's disease, unspecified; F02.80 Dementia in other diseases classified elsewhere, unspecified severity, without behavioral disturbance, psychotic disturbance, mood disturbance, and anxiety; I48.0 Paroxysmal atrial fibrillation; J43.9 Emphysema, unspecified; Y83.8 Other surgical procedures as the cause of abnormal reaction of the patient, or of later complication, without mention of misadventure at the time of the procedure; R22.1 Localized swelling, mass and lump, neck; R65.20 Severe sepsis without septic shock; T85.9XXA Unspecified complication of internal prosthetic device, implant and graft, initial encounter; Y92.238 Other place in hospital as the place of occurrence of the external cause; Z74.01 Bed confinement status
CPT/HCPCS: 36415; 36600; 70491; 71045; 71250; 74018; 80048; 80053; 80202; 81001; 82803; 83605; 83735; 84100; 84484; 85025; 85610; 85730; 86850; 86900; 86901; 87040; 87081; 87086; 93005; 94640; 94664; 96361; 96365; 96366; 96375; 99291-25

== ENCOUNTER 2018-03-25 08:22 | Inpatient (IN) | payer OTHER ==
[2018-03-25 09:05] LABS: ADD MAN DIFF? NO
[2018-03-25 09:09] LABS: BASOPHIL # 0.1 10^3/ul (0.0-0.1); BASOPHILS % 0.3 % (0.0-2.0); EOSINOPHILS # 0.7 10^3/ul (0.0-0.5); EOSINOPHILS % 3.5 % (0.0-7.0); HEMATOCRIT 28.8 % (42.0-52.0); HEMOGLOBIN 8.9 g/dl (14.0-18.0); LYMPHOCYTES # 1.4 10^3/ul (0.8-2.9); LYMPHOCYTES % 6.7 % (15.0-51.0); MEAN CORPUSCULAR HEMOGLOBIN 27.8 pg (29.0-33.0); MEAN CORPUSCULAR HGB CONC 30.9 g/dl (32.0-37.0); MEAN PLATELET VOLUME 11.9 fl (7.4-10.4); MONOCYTE # 0.9 10^3/ul (0.3-0.9); MONOCYTES % 4.4 % (0.0-11.0); NEUTROPHILS % 84.6 % (39.0-77.0); PLATELET COUNT 550 10^3/UL (140-415); RED CELL DISTRIBUTION WIDTH 14.6 % (11.5-14.5)
[2018-03-25 09:09] LABS: WHITE BLOOD COUNT 20.1 10^3/ul (4.8-10.8)
[2018-03-25] MEDS: SOD CHLORIDE 0.9% 1,000 ML IV ×2 (09:15→10:38)
[2018-03-25] MEDS: CEFEPIME 1GM/50 ML (PMX) 50 ML IVPB ×2 (09:17→23:21)
[2018-03-25 09:28] LABS: LACTIC ACID 1.4 mmol/L (0.5-2.0)
[2018-03-25 09:29] LABS: CARBON DIOXIDE 30 mmol/L (21-31); CHLORIDE 105 mmol/L (97-110); POTASSIUM 3.7 mmol/L (3.5-5.1); SODIUM 145 mmol/L (135-144)
[2018-03-25 09:30] LABS: ALANINE AMINOTRANSFERASE 40 IU/L (13-69); ALBUMIN 3.3 g/dl (3.3-4.9); ALBUMIN/GLOBULIN RATIO 0.82; ALKALINE PHOSPHATASE 117 IU/L (42-121); ANION GAP 14 (8-16); ASPARTATE AMINO TRANSFERASE 40 IU/L (15-46); BILIRUBIN,INDIRECT 0.2 mg/dl (0-1.1); BILIRUBIN,TOTAL 0.2 mg/dl (0.2-1.3); BLOOD UREA NITROGEN 44 mg/dl (7-20); CALCIUM 11.1 mg/dl (8.4-10.2); CREATININE 1.14 mg/dl (0.61-1.24); GLUCOSE 122 mg/dl (70-220); TOTAL PROTEIN 7.3 g/dl (6.1-8.1)
[2018-03-25 09:38] LABS: B-TYPE NATRIURETIC PEPTIDE 1800 PG/ML (0-450); INR 0.94; PROTIME 12.7 Sec (11.9-14.9)
[2018-03-25 09:39] LABS: PARTIAL THROMBOPLASTIN TIME 28.9 Sec (25.0-35.0)
[2018-03-25 09:42] LABS: TROPONIN-I 0.017 ng/ml (0.000-0.120)
[2018-03-25] MEDS: ONDANSETRON 4 MG INJ IV (09:46)
[2018-03-25] MEDS: PANTOPRAZOLE IV 80 MG in SOD CHLORIDE 0.9% 100 ML IVPB (09:59)
[2018-03-25] MEDS: VANCOMYCIN 1 GM (PMX) 250 ML IVPB (10:14)
[2018-03-25 10:23] LABS: AADO2 Arterial 468.1 mmHg (7.0-24.0); Allen Test ACCEPTAB; Arterial Base Excess 4.6 mmol/L (-3.0-3); Arterial Blood Gas Oxygen Sat 87.1 mmHG (95.0-100.0); Arterial COHb 0.3 % (0.0-3.0); Arterial Fraction of Oxyhgb 86.8 % (93.0-99.0); Arterial HCO3 29.5 mmol/L (22.0-26.0); Arterial MetHb 0.1 % (0.0-1.5); Arterial Total Hemglobin 9.3 g/dl (12.0-18.0); Arterial pCO2 45.9 mmhg (35-45); Blood Gas IEPAP 15/5; Blood Gas PS 10; MODE MASK - BIPAP; Site Left Radial
[2018-03-25] MEDS ORDERED: ACETAMINOPHEN 325 MG TAB PO (11:00)
[2018-03-25] MEDS ORDERED: ONDANSETRON 4 MG INJ IV ×2 (11:00→12:00)
[2018-03-25] MEDS: FUROSEMIDE 40 MG INJ IV (11:07)
[2018-03-25] MEDS: PANTOPRAZOLE IV 80 MG in SOD CHLORIDE 0.9% 100 ML IV (11:33)
[2018-03-25] MEDS ORDERED: VANCOMYCIN IV PER PHARMACY XX (12:00)
[2018-03-25] MEDS ORDERED: NACL 0.9% 3 ML SYG IV (12:00)
[2018-03-25 15:05] LABS: LACTIC ACID 2.3 mmol/L (0.5-2.0)
[2018-03-25 18:03] LABS: LACTIC ACID 1.4 mmol/L (0.5-2.0)
[2018-03-25] MEDS: ACETAMINOPHEN 650MG/20.3ML CUP NGT (18:03)
[2018-03-25] MEDS: METOPROLOL 25 MG TAB NGT ×2 (18:03→20:44)
[2018-03-25] MEDS: DEXTROSE 5%-0.45% NACL 1,000 ML IV (19:06)
[2018-03-26] MEDS: DEXTROSE 5%-0.45% NACL 1,000 ML IV ×3 (04:47→21:01)
[2018-03-26 09:13] LABS: WHITE BLOOD COUNT 39.2 10^3/ul (4.8-10.8)
[2018-03-26 09:13] LABS: ABNORMAL IP MESSAGE 1; HEMATOCRIT 25.9 % (42.0-52.0); HEMOGLOBIN 7.8 g/dl (14.0-18.0); MEAN CORPUSCULAR HEMOGLOBIN 27.3 pg (29.0-33.0); MEAN CORPUSCULAR HGB CONC 30.1 g/dl (32.0-37.0); MEAN CORPUSCULAR VOLUME 90.6 fl (82.0-101.0); MEAN PLATELET VOLUME 11.9 fl (7.4-10.4); PLATELET COUNT 466 10^3/UL (140-415); POSITIVE DIFF @See below; RED BLOOD COUNT 2.86 10^6/ul (4.70-6.10); RED CELL DISTRIBUTION WIDTH 14.7 % (11.5-14.5)
[2018-03-26 09:15] LABS: ADD MAN DIFF? YES
[2018-03-26 09:34] LABS: ANION GAP 15 (8-16); BLOOD UREA NITROGEN 54 mg/dl (7-20); CARBON DIOXIDE 28 mmol/L (21-31); CHLORIDE 107 mmol/L (97-110); GLUCOSE 116 mg/dl (70-220); MAGNESIUM 2.2 mg/dl (1.7-2.5); POTASSIUM 3.9 mmol/L (3.5-5.1); SODIUM 146 mmol/L (135-144)
[2018-03-26 09:44] LABS: BAND NEUTROPHILS #M 3.1 10^3/ul (0.0-0.6); BAND NEUTROPHILS % (M) 8 % (0-4); LYMPHOCYTES #M 1.1 10^3/ul (0.8-2.9); LYMPHOCYTES % (M) 3 % (15-51); PLATELET ESTIMATE INCREASED; POLYCHROMASIA 3+ (0-0); SEG NEUT #M 36.1 10^3/ul (1.6-7.5); SEGMENTED NEUTROPHILS (M) % 89 % (39-77); SMUDGE%M 17 % (0-0)
[2018-03-26] MEDS: CEFEPIME 1GM/50 ML (PMX) 50 ML IVPB (10:06)
[2018-03-26] MEDS: METOPROLOL 25 MG TAB NGT ×3 (10:10→22:12)
[2018-03-26] MEDS: VANCOMYCIN 500MG/NS (PMX) 100 ML IVPB (11:12)
[2018-03-26] MEDS: SUCRALFATE (100 MG/ML) 10ML CUP GTB ×3 (13:29→22:12)
[2018-03-26] MEDS: BALSAM PERU/CASTOR OIL 60 GM TUBE TOP ×2 (16:56→22:13)
[2018-03-26] MEDS: COLLAGENASE 5 GM (UD JAR) TOP (17:02)
[2018-03-26] MEDS: PANTOPRAZOLE 40 MG INJ IV (18:06)
[2018-03-26] MEDS: NYSTATIN 30 GM POWDER BTL TOP (22:13)
[2018-03-27] MEDS: PANTOPRAZOLE 40 MG INJ IV ×2 (06:08→17:48)
[2018-03-27] MEDS: SUCRALFATE (100 MG/ML) 10ML CUP GTB ×4 (09:15→22:35)
[2018-03-27] MEDS: METOPROLOL 25 MG TAB NGT ×3 (09:17→22:35)
[2018-03-27] MEDS: COLLAGENASE 5 GM (UD JAR) TOP (09:17)
[2018-03-27] MEDS: CEFEPIME 1GM/50 ML (PMX) 50 ML IVPB (09:17)
[2018-03-27] MEDS: BALSAM PERU/CASTOR OIL 60 GM TUBE TOP ×2 (09:18→22:36)
[2018-03-27] MEDS: NYSTATIN 30 GM POWDER BTL TOP ×2 (09:18→22:35)
[2018-03-27 09:20] LABS: ADD MAN DIFF? NO
[2018-03-27 09:27] LABS: ABNORMAL IP MESSAGE 1; BASOPHIL # 0.1 10^3/ul (0.0-0.1); BASOPHILS % 0.2 % (0.0-2.0); EOSINOPHILS # 0.2 10^3/ul (0.0-0.5); EOSINOPHILS % 0.8 % (0.0-7.0); HEMOGLOBIN 7.2 g/dl (14.0-18.0); LYMPHOCYTES % 3.8 % (15.0-51.0); MEAN CORPUSCULAR HEMOGLOBIN 28.1 pg (29.0-33.0); MEAN CORPUSCULAR HGB CONC 31.3 g/dl (32.0-37.0); MEAN CORPUSCULAR VOLUME 89.8 fl (82.0-101.0); MEAN PLATELET VOLUME 11.9 fl (7.4-10.4); MONOCYTE # 1.1 10^3/ul (0.3-0.9); MONOCYTES % 4.2 % (0.0-11.0); NEUTROPHIL # 23.7 10^3/ul (1.6-7.5); NEUTROPHILS % 90.2 % (39.0-77.0); PLATELET COUNT 367 10^3/UL (140-415); POSITIVE DIFF @See below; RED BLOOD COUNT 2.56 10^6/ul (4.70-6.10); RED CELL DISTRIBUTION WIDTH 14.6 % (11.5-14.5)
[2018-03-27 09:27] LABS: WHITE BLOOD COUNT 26.3 10^3/ul (4.8-10.8)
[2018-03-27 09:53] LABS: ALANINE AMINOTRANSFERASE 33 IU/L (13-69); ALBUMIN 2.7 g/dl (3.3-4.9); ALBUMIN/GLOBULIN RATIO 0.81; ALKALINE PHOSPHATASE 90 IU/L (42-121); ASPARTATE AMINO TRANSFERASE 29 IU/L (15-46); BILIRUBIN,INDIRECT 0.3 mg/dl (0-1.1); BILIRUBIN,TOTAL 0.3 mg/dl (0.2-1.3); BLOOD UREA NITROGEN 55 mg/dl (7-20); CALCIUM 10.5 mg/dl (8.4-10.2); CARBON DIOXIDE 25 mmol/L (21-31); CHLORIDE 108 mmol/L (97-110); CREATININE 2.62 mg/dl (0.61-1.24); GLUCOSE 106 mg/dl (70-220); POTASSIUM 3.5 mmol/L (3.5-5.1)
[2018-03-27 10:10] LABS: PHOSPHORUS 4.8 mg/dl (2.5-4.9)
[2018-03-27 10:13] LABS: VANCOMYCIN,TROUGH 14.9 ug/ml (10.0-20.0)
[2018-03-27 10:20] LABS: ANION GAP 12 (8-16); SODIUM 141 mmol/L (135-144)
[2018-03-27] MEDS: DEXTROSE 5%-0.45% NACL 1,000 ML IV (12:37)
[2018-03-27] MEDS: VANCOMYCIN 500MG/NS (PMX) 100 ML IVPB (12:40)
[2018-03-27] MEDS: ALBUTEROL/IPRATROPIUM (NEB) 3 ML AMP HHN ×2 (15:28→23:57)
[2018-03-28] MEDS: DEXTROSE 5%-0.45% NACL 1,000 ML IV ×2 (05:19→17:25)
[2018-03-28] MEDS: PANTOPRAZOLE 40 MG INJ IV ×2 (05:22→17:25)
[2018-03-28 05:54] LABS: ADD MAN DIFF? NO
[2018-03-28 05:58] LABS: BASOPHIL # 0.1 10^3/ul (0.0-0.1); BASOPHILS % 0.4 % (0.0-2.0); EOSINOPHILS # 0.8 10^3/ul (0.0-0.5); EOSINOPHILS % 3.8 % (0.0-7.0); HEMATOCRIT 22.2 % (42.0-52.0); LYMPHOCYTES # 0.9 10^3/ul (0.8-2.9); LYMPHOCYTES % 4.1 % (15.0-51.0); MEAN CORPUSCULAR HEMOGLOBIN 27.7 pg (29.0-33.0); MEAN CORPUSCULAR HGB CONC 31.5 g/dl (32.0-37.0); MEAN CORPUSCULAR VOLUME 87.7 fl (82.0-101.0); MEAN PLATELET VOLUME 11.8 fl (7.4-10.4); MONOCYTE # 1.1 10^3/ul (0.3-0.9); MONOCYTES % 4.9 % (0.0-11.0); NEUTROPHILS % 86.1 % (39.0-77.0); PLATELET COUNT 397 10^3/UL (140-415); RED BLOOD COUNT 2.53 10^6/ul (4.70-6.10); RED CELL DISTRIBUTION WIDTH 14.6 % (11.5-14.5)
[2018-03-28 06:21] LABS: ANION GAP 10 (8-16); BLOOD UREA NITROGEN 58 mg/dl (7-20); CALCIUM 10.4 mg/dl (8.4-10.2); CARBON DIOXIDE 27 mmol/L (21-31); CHLORIDE 109 mmol/L (97-110); CREATININE 3.22 mg/dl (0.61-1.24); GLUCOSE 94 mg/dl (70-220); POTASSIUM 3.2 mmol/L (3.5-5.1); SODIUM 143 mmol/L (135-144)
[2018-03-28 06:50] LABS: MAGNESIUM 2.1 mg/dl (1.7-2.5)
[2018-03-28 06:50] LABS: PHOSPHORUS 4.9 mg/dl (2.5-4.9)
[2018-03-28] MEDS: ALBUTEROL/IPRATROPIUM (NEB) 3 ML AMP HHN ×2 (08:12→15:34)
[2018-03-28] MEDS: NYSTATIN 30 GM POWDER BTL TOP ×2 (09:00→21:16)
[2018-03-28] MEDS: CEFEPIME 1GM/50 ML (PMX) 50 ML IVPB (09:00)
[2018-03-28] MEDS: BALSAM PERU/CASTOR OIL 60 GM TUBE TOP ×2 (09:00→21:16)
[2018-03-28] MEDS: COLLAGENASE 5 GM (UD JAR) TOP (09:00)
[2018-03-28] MEDS: METOPROLOL 25 MG TAB NGT ×3 (09:00→21:15)
[2018-03-28] MEDS: SUCRALFATE (100 MG/ML) 10ML CUP GTB ×4 (09:00→21:16)
[2018-03-28] MEDS: SOD CHLORIDE 0.9% 250 ML IV* (10:59)
[2018-03-28] MEDS: POTASSIUM CHLORIDE 20 MEQ POWDER FOR ORAL SOLN GTB (11:30)
[2018-03-28 23:06] LABS: IMMEDIATE SPIN CROSSMATCH 1 2
[2018-03-29] MEDS: ALBUTEROL/IPRATROPIUM (NEB) 3 ML AMP HHN ×3 (00:20→15:44)
[2018-03-29] MEDS: PANTOPRAZOLE 40 MG INJ IV ×2 (05:56→18:08)
[2018-03-29] MEDS: DEXTROSE 5%-0.45% NACL 1,000 ML IV ×3 (05:56→21:38)
[2018-03-29 08:05] LABS: ADD MAN DIFF? NO
[2018-03-29 08:11] LABS: WHITE BLOOD COUNT 16.2 10^3/ul (4.8-10.8)
[2018-03-29 08:11] LABS: BASOPHIL # 0.1 10^3/ul (0.0-0.1); BASOPHILS % 0.4 % (0.0-2.0); EOSINOPHILS % 6.4 % (0.0-7.0); HEMATOCRIT 29.2 % (42.0-52.0); HEMOGLOBIN 9.3 g/dl (14.0-18.0); LYMPHOCYTES # 0.9 10^3/ul (0.8-2.9); LYMPHOCYTES % 5.4 % (15.0-51.0); MEAN CORPUSCULAR HEMOGLOBIN 27.9 pg (29.0-33.0); MEAN CORPUSCULAR HGB CONC 31.8 g/dl (32.0-37.0); MEAN CORPUSCULAR VOLUME 87.7 fl (82.0-101.0); MEAN PLATELET VOLUME 11.6 fl (7.4-10.4); MONOCYTE # 1.2 10^3/ul (0.3-0.9); MONOCYTES % 7.2 % (0.0-11.0); NEUTROPHIL # 12.9 10^3/ul (1.6-7.5); PLATELET COUNT 361 10^3/UL (140-415); RED BLOOD COUNT 3.33 10^6/ul (4.70-6.10)
[2018-03-29 08:40] LABS: PHOSPHORUS 4.3 mg/dl (2.5-4.9)
[2018-03-29 08:40] LABS: MAGNESIUM 2.1 mg/dl (1.7-2.5)
[2018-03-29 08:41] LABS: ANION GAP 14 (8-16); BLOOD UREA NITROGEN 55 mg/dl (7-20); CALCIUM 10.2 mg/dl (8.4-10.2); CARBON DIOXIDE 23 mmol/L (21-31); CHLORIDE 110 mmol/L (97-110); CREATININE 3.41 mg/dl (0.61-1.24); GLUCOSE 114 mg/dl (70-220); SODIUM 143 mmol/L (135-144)
[2018-03-29] MEDS: COLLAGENASE 5 GM (UD JAR) TOP (09:24)
[2018-03-29] MEDS: SUCRALFATE (100 MG/ML) 10ML CUP GTB ×4 (09:24→21:26)
[2018-03-29] MEDS: METOPROLOL 25 MG TAB NGT ×3 (09:24→21:27)
[2018-03-29] MEDS: BALSAM PERU/CASTOR OIL 60 GM TUBE TOP ×2 (09:25→21:00)
[2018-03-29] MEDS: NYSTATIN 30 GM POWDER BTL TOP ×2 (09:25→21:28)
[2018-03-29] MEDS: CEFEPIME 1GM/50 ML (PMX) 50 ML IVPB (09:26)
[2018-03-30] MEDS: ALBUTEROL/IPRATROPIUM (NEB) 3 ML AMP HHN ×3 (00:38→16:08)
[2018-03-30] MEDS: hydrALAzine 20 MG INJ IV (02:02)
[2018-03-30] MEDS: PANTOPRAZOLE 40 MG INJ IV ×2 (06:32→17:38)
[2018-03-30 07:22] LABS: ADD MAN DIFF? NO
[2018-03-30 07:25] LABS: BASOPHIL # 0.1 10^3/ul (0.0-0.1); BASOPHILS % 0.6 % (0.0-2.0); EOSINOPHILS # 0.7 10^3/ul (0.0-0.5); EOSINOPHILS % 4.6 % (0.0-7.0); HEMATOCRIT 31.4 % (42.0-52.0); LYMPHOCYTES # 0.7 10^3/ul (0.8-2.9); LYMPHOCYTES % 4.2 % (15.0-51.0); MEAN CORPUSCULAR HEMOGLOBIN 27.9 pg (29.0-33.0); MEAN CORPUSCULAR HGB CONC 31.8 g/dl (32.0-37.0); MEAN CORPUSCULAR VOLUME 87.5 fl (82.0-101.0); MEAN PLATELET VOLUME 11.4 fl (7.4-10.4); MONOCYTE # 1.3 10^3/ul (0.3-0.9); MONOCYTES % 8.1 % (0.0-11.0); NEUTROPHIL # 13.1 10^3/ul (1.6-7.5); NEUTROPHILS % 81.7 % (39.0-77.0); PLATELET COUNT 393 10^3/UL (140-415); RED BLOOD COUNT 3.59 10^6/ul (4.70-6.10); RED CELL DISTRIBUTION WIDTH 14.2 % (11.5-14.5)
[2018-03-30 07:44] LABS: INR 1.07; PT RATIO 1.1
[2018-03-30 07:45] LABS: PARTIAL THROMBOPLASTIN TIME 36.2 Sec (25.0-35.0)
[2018-03-30 07:47] LABS: CREATINE KINASE 23 IU/L (23-200)
[2018-03-30 07:47] LABS: URIC ACID 7.5 mg/dl (3.1-7.9)
[2018-03-30 07:48] LABS: ALANINE AMINOTRANSFERASE 29 IU/L (13-69); ALBUMIN 2.8 g/dl (3.3-4.9); ALBUMIN/GLOBULIN RATIO 0.82; ALKALINE PHOSPHATASE 91 IU/L (42-121); ANION GAP 9 (8-16); ASPARTATE AMINO TRANSFERASE 26 IU/L (15-46); BILIRUBIN,INDIRECT 0.2 mg/dl (0-1.1); BILIRUBIN,TOTAL 0.2 mg/dl (0.2-1.3); BLOOD UREA NITROGEN 62 mg/dl (7-20); CALCIUM 10.4 mg/dl (8.4-10.2); CARBON DIOXIDE 26 mmol/L (21-31); CHLORIDE 111 mmol/L (97-110); CREATININE 3.64 mg/dl (0.61-1.24); GLUCOSE 108 mg/dl (70-220); POTASSIUM 3.8 mmol/L (3.5-5.1); SODIUM 142 mmol/L (135-144); TOTAL PROTEIN 6.2 g/dl (6.1-8.1)
[2018-03-30] MEDS: METOPROLOL 25 MG TAB NGT ×3 (08:51→21:30)
[2018-03-30] MEDS: COLLAGENASE 5 GM (UD JAR) TOP (08:51)
[2018-03-30] MEDS: SUCRALFATE (100 MG/ML) 10ML CUP GTB ×4 (08:51→21:29)
[2018-03-30] MEDS: CEFEPIME 1GM/50 ML (PMX) 50 ML IVPB (08:53)
[2018-03-30] MEDS: NYSTATIN 30 GM POWDER BTL TOP ×2 (08:56→21:31)
[2018-03-30] MEDS: BALSAM PERU/CASTOR OIL 60 GM TUBE TOP ×2 (08:56→21:31)
[2018-03-30] MEDS: METOPROLOL 5 MG INJ IV (10:56)
[2018-03-30] MEDS: SOD CHLORIDE 0.9% 1,000 ML IV (12:51)
[2018-03-30] MEDS: ALLOPURINOL 100 MG TAB PO (12:53)
[2018-03-30] MEDS: ALBUMIN HUMAN 25% 100 ML IV ×2 (12:57→21:29)
[2018-03-31] MEDS: ALBUTEROL/IPRATROPIUM (NEB) 3 ML AMP HHN ×4 (00:12→23:24)
[2018-03-31] MEDS: ALBUMIN HUMAN 25% 100 ML IV (04:18)
[2018-03-31 06:38] LABS: ADD MAN DIFF? NO
[2018-03-31 06:41] LABS: WHITE BLOOD COUNT 17.2 10^3/ul (4.8-10.8)
[2018-03-31 06:41] LABS: ABNORMAL IP MESSAGE 1; BASOPHIL # 0.1 10^3/ul (0.0-0.1); BASOPHILS % 0.6 % (0.0-2.0); EOSINOPHILS # 1.2 10^3/ul (0.0-0.5); EOSINOPHILS % 7.2 % (0.0-7.0); HEMATOCRIT 30.4 % (42.0-52.0); HEMOGLOBIN 9.3 g/dl (14.0-18.0); LYMPHOCYTES # 1.1 10^3/ul (0.8-2.9); LYMPHOCYTES % 6.1 % (15.0-51.0); MEAN CORPUSCULAR HEMOGLOBIN 27.3 pg (29.0-33.0); MEAN CORPUSCULAR HGB CONC 30.6 g/dl (32.0-37.0); MEAN CORPUSCULAR VOLUME 89.1 fl (82.0-101.0); MEAN PLATELET VOLUME 11.1 fl (7.4-10.4); MONOCYTE # 1.6 10^3/ul (0.3-0.9); NEUTROPHIL # 13.1 10^3/ul (1.6-7.5); NEUTROPHILS % 76.5 % (39.0-77.0); PLATELET COUNT 346 10^3/UL (140-415); POSITIVE DIFF @See below; RED BLOOD COUNT 3.41 10^6/ul (4.70-6.10); RED CELL DISTRIBUTION WIDTH 14.7 % (11.5-14.5)
[2018-03-31] MEDS: PANTOPRAZOLE 40 MG INJ IV ×2 (06:42→17:51)
[2018-03-31 07:18] LABS: ANION GAP 10 (8-16); BLOOD UREA NITROGEN 65 mg/dl (7-20); CALCIUM 10.9 mg/dl (8.4-10.2); CARBON DIOXIDE 27 mmol/L (21-31); CHLORIDE 112 mmol/L (97-110); CREATININE 3.73 mg/dl (0.61-1.24); GLUCOSE 105 mg/dl (70-220); POTASSIUM 4.1 mmol/L (3.5-5.1); SODIUM 145 mmol/L (135-144)
[2018-03-31 07:31] LABS: PHOSPHORUS 3.6 mg/dl (2.5-4.9)
[2018-03-31 07:31] LABS: MAGNESIUM 2.2 mg/dl (1.7-2.5)
[2018-03-31] MEDS: CEFEPIME 1GM/50 ML (PMX) 50 ML IVPB (08:46)
[2018-03-31] MEDS: SUCRALFATE (100 MG/ML) 10ML CUP GTB ×4 (08:47→20:50)
[2018-03-31] MEDS: ALLOPURINOL 100 MG TAB PO (08:47)
[2018-03-31] MEDS: METOPROLOL 25 MG TAB NGT ×3 (08:47→20:50)
[2018-03-31] MEDS: COLLAGENASE 5 GM (UD JAR) TOP (08:48)
[2018-03-31] MEDS: NYSTATIN 30 GM POWDER BTL TOP ×2 (08:48→20:51)
[2018-03-31] MEDS: BALSAM PERU/CASTOR OIL 60 GM TUBE TOP ×2 (08:48→20:51)
[2018-03-31] MEDS: METOPROLOL 5 MG INJ IV (14:36)
[2018-03-31] MEDS: SOD CHLORIDE 0.45% 1,000 ML IV (15:13)
[2018-03-31] MEDS: hydrALAzine 20 MG INJ IV (21:30)
[2018-04-01] MEDS: METOPROLOL 5 MG INJ IV (02:23)
[2018-04-01] MEDS: ALBUTEROL/IPRATROPIUM (NEB) 3 ML AMP HHN ×4 (04:09→23:46)
[2018-04-01] MEDS: PANTOPRAZOLE 40 MG INJ IV ×2 (05:35→17:22)
[2018-04-01] MEDS: SOD CHLORIDE 0.45% 1,000 ML IV (05:37)
[2018-04-01 06:04] LABS: AADO2 Arterial 320.7 mmHg (7.0-24.0); Allen Test ACCEPTAB; Arterial Base Excess -1.7 mmol/L (-3.0-3); Arterial Blood Gas Oxygen Sat 93.4 mmHG (95.0-100.0); Arterial COHb 0.2 % (0.0-3.0); Arterial Fraction of Oxyhgb 92.9 % (93.0-99.0); Arterial HCO3 23.4 mmol/L (22.0-26.0); Arterial MetHb 0.3 % (0.0-1.5); Arterial Total Hemglobin 8.4 g/dl (12.0-18.0); Arterial pCO2 40.8 mmhg (35-45); MODE MASK - SIMPLE; Site Right Radial
[2018-04-01 06:49] LABS: ADD MAN DIFF? NO
[2018-04-01 07:06] LABS: ABNORMAL IP MESSAGE 1; BASOPHIL # 0.1 10^3/ul (0.0-0.1); BASOPHILS % 0.4 % (0.0-2.0); EOSINOPHILS # 0.4 10^3/ul (0.0-0.5); HEMATOCRIT 28.5 % (42.0-52.0); HEMOGLOBIN 8.7 g/dl (14.0-18.0); LYMPHOCYTES # 0.7 10^3/ul (0.8-2.9); LYMPHOCYTES % 3.5 % (15.0-51.0); MEAN CORPUSCULAR HEMOGLOBIN 27.2 pg (29.0-33.0); MEAN CORPUSCULAR HGB CONC 30.5 g/dl (32.0-37.0); MEAN CORPUSCULAR VOLUME 89.1 fl (82.0-101.0); MEAN PLATELET VOLUME 11.6 fl (7.4-10.4); MONOCYTE # 1.6 10^3/ul (0.3-0.9); MONOCYTES % 8.1 % (0.0-11.0); NEUTROPHILS % 85.2 % (39.0-77.0); PLATELET COUNT 341 10^3/UL (140-415); POSITIVE DIFF @See below; RED CELL DISTRIBUTION WIDTH 15.1 % (11.5-14.5)
[2018-04-01 07:06] LABS: WHITE BLOOD COUNT 19.9 10^3/ul (4.8-10.8)
[2018-04-01 07:09] LABS: ANION GAP 12 (8-16); BLOOD UREA NITROGEN 70 mg/dl (7-20); CARBON DIOXIDE 24 mmol/L (21-31); CHLORIDE 112 mmol/L (97-110); CREATININE 3.66 mg/dl (0.61-1.24); GLUCOSE 110 mg/dl (70-220); POTASSIUM 3.9 mmol/L (3.5-5.1); SODIUM 144 mmol/L (135-144)
[2018-04-01 07:28] LABS: MAGNESIUM 2.1 mg/dl (1.7-2.5)
[2018-04-01 07:28] LABS: PHOSPHORUS 3.4 mg/dl (2.5-4.9)
[2018-04-01] MEDS: ALLOPURINOL 100 MG TAB PO (08:36)
[2018-04-01] MEDS: COLLAGENASE 5 GM (UD JAR) TOP (08:36)
[2018-04-01] MEDS: SUCRALFATE (100 MG/ML) 10ML CUP GTB ×4 (08:36→20:28)
[2018-04-01] MEDS: METOPROLOL 25 MG TAB NGT ×3 (08:37→20:28)
[2018-04-01] MEDS: BALSAM PERU/CASTOR OIL 60 GM TUBE TOP ×2 (08:38→20:29)
[2018-04-01] MEDS: NYSTATIN 30 GM POWDER BTL TOP ×2 (08:38→20:29)
[2018-04-01] MEDS: CEFEPIME 1GM/50 ML (PMX) 50 ML IVPB (08:46)
[2018-04-01] MEDS: FUROSEMIDE 20 MG INJ IV (17:22)
[2018-04-01] MEDS: LINEZOLID 600 MG/D5W (PMX) 300 ML IVPB (18:50)
[2018-04-02] MEDS: hydrALAzine 20 MG INJ IV (00:26)
[2018-04-02] MEDS: PANTOPRAZOLE 40 MG INJ IV ×2 (05:42→17:37)
[2018-04-02] MEDS: LINEZOLID 600 MG/D5W (PMX) 300 ML IVPB ×2 (06:36→17:48)
[2018-04-02 07:29] LABS: ADD MAN DIFF? NO
[2018-04-02 07:32] LABS: WHITE BLOOD COUNT 16.7 10^3/ul (4.8-10.8)
[2018-04-02 07:32] LABS: BASOPHIL # 0.1 10^3/ul (0.0-0.1); BASOPHILS % 0.5 % (0.0-2.0); EOSINOPHILS # 1.2 10^3/ul (0.0-0.5); EOSINOPHILS % 7.1 % (0.0-7.0); HEMATOCRIT 29.6 % (42.0-52.0); HEMOGLOBIN 9.2 g/dl (14.0-18.0); LYMPHOCYTES # 0.8 10^3/ul (0.8-2.9); LYMPHOCYTES % 4.9 % (15.0-51.0); MEAN CORPUSCULAR HEMOGLOBIN 27.5 pg (29.0-33.0); MEAN CORPUSCULAR HGB CONC 31.1 g/dl (32.0-37.0); MEAN CORPUSCULAR VOLUME 88.6 fl (82.0-101.0); MEAN PLATELET VOLUME 11.4 fl (7.4-10.4); MONOCYTE # 1.4 10^3/ul (0.3-0.9); MONOCYTES % 8.3 % (0.0-11.0); NEUTROPHIL # 13.1 10^3/ul (1.6-7.5); NEUTROPHILS % 78.5 % (39.0-77.0); PLATELET COUNT 324 10^3/UL (140-415); RED BLOOD COUNT 3.34 10^6/ul (4.70-6.10); RED CELL DISTRIBUTION WIDTH 15.3 % (11.5-14.5)
[2018-04-02 07:51] LABS: ANION GAP 15 (8-16); BLOOD UREA NITROGEN 67 mg/dl (7-20); CALCIUM 11.2 mg/dl (8.4-10.2); CARBON DIOXIDE 23 mmol/L (21-31); CHLORIDE 108 mmol/L (97-110); CREATININE 3.76 mg/dl (0.61-1.24); GLUCOSE 140 mg/dl (70-220); POTASSIUM 3.6 mmol/L (3.5-5.1); SODIUM 142 mmol/L (135-144)
[2018-04-02] MEDS: ALBUTEROL/IPRATROPIUM (NEB) 3 ML AMP HHN ×2 (07:51→15:41)
[2018-04-02 07:57] LABS: MAGNESIUM 2.1 mg/dl (1.7-2.5)
[2018-04-02] MEDS: NYSTATIN 30 GM POWDER BTL TOP ×2 (09:36→21:01)
[2018-04-02] MEDS: CEFEPIME 1GM/50 ML (PMX) 50 ML IVPB (09:36)
[2018-04-02] MEDS: COLLAGENASE 5 GM (UD JAR) TOP (09:36)
[2018-04-02] MEDS: ALLOPURINOL 100 MG TAB PO (09:36)
[2018-04-02] MEDS: SUCRALFATE (100 MG/ML) 10ML CUP GTB ×4 (09:36→20:59)
[2018-04-02] MEDS: METOPROLOL 25 MG TAB NGT ×3 (09:37→21:00)
[2018-04-02] MEDS: BALSAM PERU/CASTOR OIL 60 GM TUBE TOP ×2 (09:37→21:00)
[2018-04-02] MEDS: METOPROLOL 5 MG INJ IV ×2 (17:38→22:50)
[2018-04-03] MEDS ORDERED: SOD CHLORIDE 0.9% 250 ML IV (01:00)
[2018-04-03] MEDS: SOD CHLORIDE 0.9% 1,000 ML IV (01:20)
[2018-04-03 01:37] LABS: AADO2 Arterial 176.9 mmHg (7.0-24.0); Allen Test ACCEPTAB; Arterial Base Excess 0.9 mmol/L (-3.0-3); Arterial Blood Gas Oxygen Sat 93.2 mmHG (95.0-100.0); Arterial COHb 0.3 % (0.0-3.0); Arterial Fraction of Oxyhgb 92.7 % (93.0-99.0); Arterial HCO3 24.9 mmol/L (22.0-26.0); Arterial MetHb 0.2 % (0.0-1.5); Arterial Total Hemglobin 10.3 g/dl (12.0-18.0); Arterial pCO2 37.5 mmhg (35-45); Blood Gas IEPAP 15/5; MODE MASK - BIPAP; Site Left Radial
[2018-04-03] MEDS: LINEZOLID 600 MG/D5W (PMX) 300 ML IVPB ×2 (06:04→18:05)
[2018-04-03] MEDS: PANTOPRAZOLE 40 MG INJ IV ×2 (06:04→18:05)
[2018-04-03] MEDS: METOPROLOL 5 MG INJ IV (06:08)
[2018-04-03 07:26] LABS: ADD MAN DIFF? NO
[2018-04-03 07:34] LABS: BASOPHIL # 0.1 10^3/ul (0.0-0.1); BASOPHILS % 0.6 % (0.0-2.0); EOSINOPHILS # 1.1 10^3/ul (0.0-0.5); EOSINOPHILS % 7.6 % (0.0-7.0); HEMATOCRIT 29.3 % (42.0-52.0); HEMOGLOBIN 8.9 g/dl (14.0-18.0); LYMPHOCYTES # 0.9 10^3/ul (0.8-2.9); LYMPHOCYTES % 6.3 % (15.0-51.0); MEAN CORPUSCULAR HEMOGLOBIN 26.9 pg (29.0-33.0); MEAN CORPUSCULAR HGB CONC 30.4 g/dl (32.0-37.0); MEAN CORPUSCULAR VOLUME 88.5 fl (82.0-101.0); MEAN PLATELET VOLUME 11.8 fl (7.4-10.4); MONOCYTE # 1.4 10^3/ul (0.3-0.9); MONOCYTES % 9.9 % (0.0-11.0); NEUTROPHIL # 10.6 10^3/ul (1.6-7.5); PLATELET COUNT 291 10^3/UL (140-415); RED BLOOD COUNT 3.31 10^6/ul (4.70-6.10); RED CELL DISTRIBUTION WIDTH 15.8 % (11.5-14.5)
[2018-04-03 07:34] LABS: WHITE BLOOD COUNT 14.1 10^3/ul (4.8-10.8)
[2018-04-03] MEDS: ALBUTEROL/IPRATROPIUM (NEB) 3 ML AMP HHN ×3 (08:04→15:54)
[2018-04-03 08:05] LABS: ANION GAP 11 (8-16); BLOOD UREA NITROGEN 73 mg/dl (7-20); CARBON DIOXIDE 26 mmol/L (21-31); CHLORIDE 107 mmol/L (97-110); CREATININE 3.88 mg/dl (0.61-1.24); GLUCOSE 140 mg/dl (70-220); POTASSIUM 3.9 mmol/L (3.5-5.1); SODIUM 140 mmol/L (135-144)
[2018-04-03 08:06] LABS: MAGNESIUM 2.1 mg/dl (1.7-2.5)
[2018-04-03] MEDS: ALLOPURINOL 100 MG TAB PO (09:25)
[2018-04-03] MEDS: SUCRALFATE (100 MG/ML) 10ML CUP GTB ×4 (09:25→21:36)
[2018-04-03] MEDS: CEFEPIME 1GM/50 ML (PMX) 50 ML IVPB (09:25)
[2018-04-03] MEDS: NYSTATIN 30 GM POWDER BTL TOP ×2 (09:26→21:35)
[2018-04-03] MEDS: METOPROLOL 25 MG TAB NGT ×3 (09:26→21:36)
[2018-04-03] MEDS: COLLAGENASE 5 GM (UD JAR) TOP (09:26)
[2018-04-03] MEDS: BALSAM PERU/CASTOR OIL 60 GM TUBE TOP ×2 (09:26→21:36)
[2018-04-04] MEDS: ALBUTEROL/IPRATROPIUM (NEB) 3 ML AMP HHN ×4 (00:07→23:48)
[2018-04-04] MEDS: PANTOPRAZOLE 40 MG INJ IV ×2 (06:20→18:52)
[2018-04-04] MEDS: LINEZOLID 600 MG/D5W (PMX) 300 ML IVPB ×2 (06:26→18:53)
[2018-04-04] MEDS: SUCRALFATE (100 MG/ML) 10ML CUP GTB ×4 (09:25→20:39)
[2018-04-04] MEDS: COLLAGENASE 5 GM (UD JAR) TOP (09:25)
[2018-04-04] MEDS: ALLOPURINOL 100 MG TAB PO (09:25)
[2018-04-04] MEDS: CEFEPIME 1GM/50 ML (PMX) 50 ML IVPB (09:25)
[2018-04-04] MEDS: NYSTATIN 30 GM POWDER BTL TOP ×2 (09:26→20:40)
[2018-04-04] MEDS: BALSAM PERU/CASTOR OIL 60 GM TUBE TOP ×2 (09:26→20:57)
[2018-04-04] MEDS: METOPROLOL 25 MG TAB NGT ×4 (09:27→21:12)
[2018-04-04 09:32] LABS: ADD MAN DIFF? NO
[2018-04-04 09:40] LABS: BASOPHIL # 0.1 10^3/ul (0.0-0.1); BASOPHILS % 0.4 % (0.0-2.0); EOSINOPHILS # 1.3 10^3/ul (0.0-0.5); EOSINOPHILS % 7.6 % (0.0-7.0); HEMATOCRIT 29.7 % (42.0-52.0); HEMOGLOBIN 9.1 g/dl (14.0-18.0); LYMPHOCYTES # 1.1 10^3/ul (0.8-2.9); LYMPHOCYTES % 6.2 % (15.0-51.0); MEAN CORPUSCULAR HEMOGLOBIN 27.8 pg (29.0-33.0); MEAN CORPUSCULAR HGB CONC 30.6 g/dl (32.0-37.0); MEAN CORPUSCULAR VOLUME 90.8 fl (82.0-101.0); MEAN PLATELET VOLUME 12.1 fl (7.4-10.4); MONOCYTE # 1.4 10^3/ul (0.3-0.9); MONOCYTES % 7.9 % (0.0-11.0); NEUTROPHIL # 13.5 10^3/ul (1.6-7.5); PLATELET COUNT 283 10^3/UL (140-415); RED BLOOD COUNT 3.27 10^6/ul (4.70-6.10); RED CELL DISTRIBUTION WIDTH 15.8 % (11.5-14.5)
[2018-04-04 09:40] LABS: WHITE BLOOD COUNT 17.5 10^3/ul (4.8-10.8)
[2018-04-04 10:05] LABS: B-TYPE NATRIURETIC PEPTIDE 26800 PG/ML (0-450)
[2018-04-04 10:08] LABS: MAGNESIUM 2.2 mg/dl (1.7-2.5)
[2018-04-04 10:08] LABS: PHOSPHORUS 3.3 mg/dl (2.5-4.9)
[2018-04-04 10:09] LABS: ANION GAP 13 (8-16); BLOOD UREA NITROGEN 81 mg/dl (7-20); CALCIUM 11.1 mg/dl (8.4-10.2); CARBON DIOXIDE 26 mmol/L (21-31); CHLORIDE 104 mmol/L (97-110); CREATININE 3.85 mg/dl (0.61-1.24); GLUCOSE 136 mg/dl (70-220); POTASSIUM 4.5 mmol/L (3.5-5.1); SODIUM 138 mmol/L (135-144)
[2018-04-04] MEDS: METOPROLOL 5 MG INJ IV ×2 (12:30→20:43)
[2018-04-04] MEDS: METHYLPREDNISOLONE 125 MG INJ IV ×2 (12:47→18:52)
[2018-04-04 13:27] LABS: AADO2 Arterial 231.9 mmHg (7.0-24.0); Allen Test ACCEPTAB; Arterial Base Excess 0.8 mmol/L (-3.0-3); Arterial COHb 0.3 % (0.0-3.0); Arterial Fraction of Oxyhgb 95.6 % (93.0-99.0); Arterial HCO3 25.5 mmol/L (22.0-26.0); Arterial MetHb 0.1 % (0.0-1.5); Arterial Total Hemglobin 11.1 g/dl (12.0-18.0); Arterial pCO2 41.4 mmhg (35-45); Blood Gas IEPAP 15/5; Blood Gas PS 10; MODE MASK - BIPAP; Site Right Radial
[2018-04-05] MEDS: METHYLPREDNISOLONE 125 MG INJ IV ×4 (00:15→17:57)
[2018-04-05 04:57] LABS: WHITE BLOOD COUNT 13.6 10^3/ul (4.8-10.8)
[2018-04-05 04:57] LABS: ABNORMAL IP MESSAGE 1; HEMATOCRIT 26.2 % (42.0-52.0); MEAN CORPUSCULAR HEMOGLOBIN 27.2 pg (29.0-33.0); MEAN CORPUSCULAR HGB CONC 30.5 g/dl (32.0-37.0); MEAN CORPUSCULAR VOLUME 89.1 fl (82.0-101.0); MEAN PLATELET VOLUME 11.5 fl (7.4-10.4); PLATELET COUNT 231 10^3/UL (140-415); POSITIVE DIFF @See below; RED BLOOD COUNT 2.94 10^6/ul (4.70-6.10); RED CELL DISTRIBUTION WIDTH 15.5 % (11.5-14.5)
[2018-04-05 05:20] LABS: ANION GAP 10 (8-16); BLOOD UREA NITROGEN 79 mg/dl (7-20); CALCIUM 10.7 mg/dl (8.4-10.2); CARBON DIOXIDE 26 mmol/L (21-31); CHLORIDE 104 mmol/L (97-110); CREATININE 4.12 mg/dl (0.61-1.24); GLUCOSE 153 mg/dl (70-220); POTASSIUM 4.3 mmol/L (3.5-5.1); SODIUM 136 mmol/L (135-144)
[2018-04-05 05:20] LABS: MAGNESIUM 2.2 mg/dl (1.7-2.5)
[2018-04-05 06:13] LABS: ADD MAN DIFF? YES
[2018-04-05] MEDS: PANTOPRAZOLE 40 MG INJ IV ×2 (06:16→17:57)
[2018-04-05] MEDS: LINEZOLID 600 MG/D5W (PMX) 300 ML IVPB ×2 (06:16→17:57)
[2018-04-05] MEDS: ALBUTEROL/IPRATROPIUM (NEB) 3 ML AMP HHN ×3 (08:53→23:49)
[2018-04-05 09:11] LABS: AADO2 Arterial 173.4 mmHg (7.0-24.0); Allen Test ACCEPTAB; Arterial Base Excess -1.2 mmol/L (-3.0-3); Arterial Blood Gas Oxygen Sat 93.5 mmHG (95.0-100.0); Arterial COHb 0.2 % (0.0-3.0); Arterial Fraction of Oxyhgb 93.2 % (93.0-99.0); Arterial HCO3 23.4 mmol/L (22.0-26.0); Arterial MetHb 0.1 % (0.0-1.5); Arterial Total Hemglobin 11.8 g/dl (12.0-18.0); Arterial pCO2 38.4 mmhg (35-45); BAND NEUTROPHILS #M 0.2 10^3/ul (0.0-0.6); BAND NEUTROPHILS % (M) 2 % (0-4); Blood Gas IEPAP 15/5; Blood Gas PS 10; MODE MASK - BIPAP; PLATELET ESTIMATE NORMAL; POLYCHROMASIA 2+ (0-0); SEG NEUT #M 13.4 10^3/ul (1.6-7.5); SEGMENTED NEUTROPHILS (M) % 98 % (39-77); SMUDGE%M 7 % (0-0); Site Left Radial
[2018-04-05] MEDS: COLLAGENASE 5 GM (UD JAR) TOP (09:59)
[2018-04-05] MEDS: SUCRALFATE (100 MG/ML) 10ML CUP GTB ×4 (09:59→21:10)
[2018-04-05] MEDS: ALLOPURINOL 100 MG TAB PO (09:59)
[2018-04-05] MEDS: CEFEPIME 1GM/50 ML (PMX) 50 ML IVPB (10:00)
[2018-04-05] MEDS: METOPROLOL 25 MG TAB NGT ×3 (10:00→21:10)
[2018-04-05] MEDS: NYSTATIN 30 GM POWDER BTL TOP ×2 (10:00→21:10)
[2018-04-05] MEDS: BALSAM PERU/CASTOR OIL 60 GM TUBE TOP ×2 (10:01→21:10)
[2018-04-06] MEDS: METHYLPREDNISOLONE 125 MG INJ IV ×4 (01:18→18:33)
[2018-04-06] MEDS: LINEZOLID 600 MG/D5W (PMX) 300 ML IVPB ×2 (05:21→18:33)
[2018-04-06] MEDS: PANTOPRAZOLE 40 MG INJ IV ×2 (05:21→18:33)
[2018-04-06 06:29] LABS: ADD MAN DIFF? NO
[2018-04-06 06:31] LABS: ABNORMAL IP MESSAGE 1; BASOPHILS % 0.1 % (0.0-2.0); HEMATOCRIT 28.9 % (42.0-52.0); HEMOGLOBIN 9.3 g/dl (14.0-18.0); LYMPHOCYTES # 0.6 10^3/ul (0.8-2.9); LYMPHOCYTES % 2.9 % (15.0-51.0); MEAN CORPUSCULAR HEMOGLOBIN 28.2 pg (29.0-33.0); MEAN CORPUSCULAR HGB CONC 32.2 g/dl (32.0-37.0); MEAN CORPUSCULAR VOLUME 87.6 fl (82.0-101.0); MONOCYTE # 0.5 10^3/ul (0.3-0.9); MONOCYTES % 2.4 % (0.0-11.0); NEUTROPHILS % 94.1 % (39.0-77.0); PLATELET COUNT 288 10^3/UL (140-415); POSITIVE DIFF @See below; RED CELL DISTRIBUTION WIDTH 15.6 % (11.5-14.5)
[2018-04-06 06:31] LABS: WHITE BLOOD COUNT 22.3 10^3/ul (4.8-10.8)
[2018-04-06 06:54] LABS: ANION GAP 16 (8-16); BLOOD UREA NITROGEN 83 mg/dl (7-20); CALCIUM 11.5 mg/dl (8.4-10.2); CARBON DIOXIDE 26 mmol/L (21-31); CHLORIDE 100 mmol/L (97-110); CREATININE 4.22 mg/dl (0.61-1.24); GLUCOSE 123 mg/dl (70-220); POTASSIUM 4.4 mmol/L (3.5-5.1); SODIUM 138 mmol/L (135-144)
[2018-04-06 06:54] LABS: MAGNESIUM 2.4 mg/dl (1.7-2.5)
[2018-04-06] MEDS: ALBUTEROL/IPRATROPIUM (NEB) 3 ML AMP HHN ×2 (08:23→17:20)
[2018-04-06] MEDS: COLLAGENASE 5 GM (UD JAR) TOP (09:56)
[2018-04-06] MEDS: CEFEPIME 1GM/50 ML (PMX) 50 ML IVPB (09:57)
[2018-04-06] MEDS: BALSAM PERU/CASTOR OIL 60 GM TUBE TOP ×2 (09:57→21:08)
[2018-04-06] MEDS: SUCRALFATE (100 MG/ML) 10ML CUP GTB ×4 (09:58→21:07)
[2018-04-06] MEDS: NYSTATIN 30 GM POWDER BTL TOP ×2 (09:58→21:08)
[2018-04-06] MEDS: METOPROLOL 25 MG TAB NGT ×3 (09:58→21:08)
[2018-04-06] MEDS: ALLOPURINOL 100 MG TAB PO ×2 (10:00→21:08)
[2018-04-07] MEDS: METHYLPREDNISOLONE 125 MG INJ IV ×4 (00:05→17:00)
[2018-04-07] MEDS: ALBUTEROL/IPRATROPIUM (NEB) 3 ML AMP HHN ×4 (00:20→23:39)
[2018-04-07 05:13] LABS: ADD MAN DIFF? NO
[2018-04-07 05:15] LABS: BASOPHILS % 0.1 % (0.0-2.0); HEMATOCRIT 26.6 % (42.0-52.0); HEMOGLOBIN 8.3 g/dl (14.0-18.0); LYMPHOCYTES # 0.6 10^3/ul (0.8-2.9); LYMPHOCYTES % 3.1 % (15.0-51.0); MEAN CORPUSCULAR HEMOGLOBIN 27.3 pg (29.0-33.0); MEAN CORPUSCULAR HGB CONC 31.2 g/dl (32.0-37.0); MEAN CORPUSCULAR VOLUME 87.5 fl (82.0-101.0); MEAN PLATELET VOLUME 11.6 fl (7.4-10.4); MONOCYTE # 0.7 10^3/ul (0.3-0.9); MONOCYTES % 3.3 % (0.0-11.0); NEUTROPHIL # 18.6 10^3/ul (1.6-7.5); PLATELET COUNT 280 10^3/UL (140-415); RED BLOOD COUNT 3.04 10^6/ul (4.70-6.10); RED CELL DISTRIBUTION WIDTH 15.8 % (11.5-14.5)
[2018-04-07 05:37] LABS: ANION GAP 16 (8-16); BLOOD UREA NITROGEN 101 mg/dl (7-20); CALCIUM 10.9 mg/dl (8.4-10.2); CARBON DIOXIDE 24 mmol/L (21-31); CHLORIDE 100 mmol/L (97-110); CREATININE 4.07 mg/dl (0.61-1.24); GLUCOSE 112 mg/dl (70-220); POTASSIUM 4.5 mmol/L (3.5-5.1); SODIUM 135 mmol/L (135-144)
[2018-04-07 05:39] LABS: MAGNESIUM 2.4 mg/dl (1.7-2.5)
[2018-04-07] MEDS: LINEZOLID 600 MG/D5W (PMX) 300 ML IVPB ×2 (06:05→17:00)
[2018-04-07] MEDS: PANTOPRAZOLE 40 MG INJ IV ×2 (06:05→17:00)
[2018-04-07] MEDS: SUCRALFATE (100 MG/ML) 10ML CUP GTB ×4 (08:22→20:04)
[2018-04-07] MEDS: METOPROLOL 25 MG TAB NGT ×3 (08:22→20:04)
[2018-04-07] MEDS: COLLAGENASE 5 GM (UD JAR) TOP (08:22)
[2018-04-07] MEDS: ALLOPURINOL 100 MG TAB PO ×2 (08:22→20:04)
[2018-04-07] MEDS: CEFEPIME 1GM/50 ML (PMX) 50 ML IVPB (08:23)
[2018-04-07] MEDS: NYSTATIN 30 GM POWDER BTL TOP ×2 (08:23→20:04)
[2018-04-07] MEDS: BALSAM PERU/CASTOR OIL 60 GM TUBE TOP ×2 (08:23→20:05)
[2018-04-07 08:51] LABS: AADO2 Arterial 122.5 mmHg (7.0-24.0); Allen Test ACCEPTAB; Arterial Base Excess 0.1 mmol/L (-3.0-3); Arterial Blood Gas Oxygen Sat 82.7 mmHG (95.0-100.0); Arterial COHb 0.3 % (0.0-3.0); Arterial Fraction of Oxyhgb 82.4 % (93.0-99.0); Arterial HCO3 24.5 mmol/L (22.0-26.0); Arterial MetHb 0.1 % (0.0-1.5); Arterial Total Hemglobin 9.5 g/dl (12.0-18.0); Arterial pCO2 38.8 mmhg (35-45); Blood Gas IEPAP 10; Blood Gas PS 15/5; MODE MASK - BIPAP; Site Right Radial
[2018-04-07] MEDS: LIDOCAINE 1% (MPF) 5 ML VIAL SC (11:00)
[2018-04-07] MEDS: AMLODIPINE 5 MG TAB NGT (11:02)
[2018-04-07 12:32] LABS: AADO2 Arterial 172.1 mmHg (7.0-24.0); Allen Test ACCEPTAB; Arterial Base Excess 1.1 mmol/L (-3.0-3); Arterial Blood Gas Oxygen Sat 93.9 mmHG (95.0-100.0); Arterial COHb 0.3 % (0.0-3.0); Arterial Fraction of Oxyhgb 93.5 % (93.0-99.0); Arterial HCO3 25.5 mmol/L (22.0-26.0); Arterial MetHb 0.1 % (0.0-1.5); Arterial Total Hemglobin 9.5 g/dl (12.0-18.0); Arterial pCO2 39.5 mmhg (35-45); MODE HFNC; Site Right Radial
[2018-04-08] MEDS: METHYLPREDNISOLONE 125 MG INJ IV ×4 (00:58→17:38)
[2018-04-08] MEDS: LINEZOLID 600 MG/D5W (PMX) 300 ML IVPB ×2 (05:24→17:38)
[2018-04-08] MEDS: PANTOPRAZOLE 40 MG INJ IV ×2 (05:24→17:39)
[2018-04-08 05:25] LABS: ADD MAN DIFF? NO
[2018-04-08 05:34] LABS: ABNORMAL IP MESSAGE 1; BASOPHILS % 0.1 % (0.0-2.0); HEMATOCRIT 24.6 % (42.0-52.0); HEMOGLOBIN 7.9 g/dl (14.0-18.0); LYMPHOCYTES # 0.4 10^3/ul (0.8-2.9); LYMPHOCYTES % 3.1 % (15.0-51.0); MEAN CORPUSCULAR HEMOGLOBIN 27.6 pg (29.0-33.0); MEAN CORPUSCULAR HGB CONC 32.1 g/dl (32.0-37.0); MEAN PLATELET VOLUME 12.4 fl (7.4-10.4); MONOCYTE # 0.2 10^3/ul (0.3-0.9); MONOCYTES % 1.7 % (0.0-11.0); NEUTROPHIL # 11.6 10^3/ul (1.6-7.5); NEUTROPHILS % 94.6 % (39.0-77.0); PLATELET COUNT 278 10^3/UL (140-415); POSITIVE DIFF @See below; RED BLOOD COUNT 2.86 10^6/ul (4.70-6.10); RED CELL DISTRIBUTION WIDTH 15.8 % (11.5-14.5)
[2018-04-08 05:34] LABS: WHITE BLOOD COUNT 12.2 10^3/ul (4.8-10.8)
[2018-04-08 05:59] LABS: MAGNESIUM 2.3 mg/dl (1.7-2.5)
[2018-04-08 06:02] LABS: ANION GAP 13 (8-16); BLOOD UREA NITROGEN 109 mg/dl (7-20); CALCIUM 10.2 mg/dl (8.4-10.2); CARBON DIOXIDE 26 mmol/L (21-31); CHLORIDE 98 mmol/L (97-110); GLUCOSE 147 mg/dl (70-220); POTASSIUM 4.4 mmol/L (3.5-5.1); SODIUM 133 mmol/L (135-144)
[2018-04-08] MEDS: SUCRALFATE (100 MG/ML) 10ML CUP GTB ×4 (09:14→20:37)
[2018-04-08] MEDS: ALLOPURINOL 100 MG TAB PO ×2 (09:14→20:38)
[2018-04-08] MEDS: AMLODIPINE 5 MG TAB NGT (09:15)
[2018-04-08] MEDS: BALSAM PERU/CASTOR OIL 60 GM TUBE TOP ×2 (09:15→20:39)
[2018-04-08] MEDS: COLLAGENASE 5 GM (UD JAR) TOP (09:15)
[2018-04-08] MEDS: METOPROLOL 25 MG TAB NGT ×3 (09:15→20:37)
[2018-04-08] MEDS: CEFEPIME 1GM/50 ML (PMX) 50 ML IVPB (09:16)
[2018-04-08] MEDS: NYSTATIN 30 GM POWDER BTL TOP ×2 (09:16→20:38)
[2018-04-08] MEDS: ALBUTEROL/IPRATROPIUM (NEB) 3 ML AMP HHN ×3 (10:36→23:22)
[2018-04-08] MEDS: ALBUMIN HUMAN 25% 100 ML IV (18:46)
[2018-04-09] MEDS: METHYLPREDNISOLONE 125 MG INJ IV ×4 (00:03→18:30)
[2018-04-09] MEDS: ALBUMIN HUMAN 25% 100 ML IV ×2 (02:09→10:41)
[2018-04-09] MEDS: LINEZOLID 600 MG/D5W (PMX) 300 ML IVPB ×2 (05:00→18:30)
[2018-04-09] MEDS: PANTOPRAZOLE 40 MG INJ IV ×2 (05:00→18:30)
[2018-04-09 05:12] LABS: ADD MAN DIFF? NO
[2018-04-09 05:19] LABS: WHITE BLOOD COUNT 12.4 10^3/ul (4.8-10.8)
[2018-04-09 05:19] LABS: ABNORMAL IP MESSAGE 1; BASOPHILS % 0.1 % (0.0-2.0); HEMATOCRIT 22.1 % (42.0-52.0); HEMOGLOBIN 7.1 g/dl (14.0-18.0); LYMPHOCYTES # 0.3 10^3/ul (0.8-2.9); LYMPHOCYTES % 2.7 % (15.0-51.0); MEAN CORPUSCULAR HEMOGLOBIN 27.3 pg (29.0-33.0); MEAN CORPUSCULAR HGB CONC 32.1 g/dl (32.0-37.0); MEAN PLATELET VOLUME 12.2 fl (7.4-10.4); MONOCYTE # 0.2 10^3/ul (0.3-0.9); MONOCYTES % 1.8 % (0.0-11.0); NEUTROPHIL # 11.8 10^3/ul (1.6-7.5); PLATELET COUNT 230 10^3/UL (140-415); POSITIVE DIFF @See below; RED CELL DISTRIBUTION WIDTH 15.8 % (11.5-14.5)
[2018-04-09 05:57] LABS: ANION GAP 14 (8-16); BLOOD UREA NITROGEN 119 mg/dl (7-20); CALCIUM 9.9 mg/dl (8.4-10.2); CARBON DIOXIDE 25 mmol/L (21-31); CHLORIDE 96 mmol/L (97-110); CREATININE 4.32 mg/dl (0.61-1.24); GLUCOSE 139 mg/dl (70-220); POTASSIUM 4.4 mmol/L (3.5-5.1); SODIUM 131 mmol/L (135-144)
[2018-04-09 06:04] LABS: MAGNESIUM 2.3 mg/dl (1.7-2.5)
[2018-04-09] MEDS: ALBUTEROL/IPRATROPIUM (NEB) 3 ML AMP HHN ×3 (08:07→23:12)
[2018-04-09] MEDS: METOPROLOL 25 MG TAB NGT ×3 (09:10→21:03)
[2018-04-09] MEDS: CEFEPIME 1GM/50 ML (PMX) 50 ML IVPB (09:10)
[2018-04-09] MEDS: SUCRALFATE (100 MG/ML) 10ML CUP GTB ×4 (09:10→21:02)
[2018-04-09] MEDS: ALLOPURINOL 100 MG TAB PO ×2 (09:11→21:03)
[2018-04-09] MEDS: BALSAM PERU/CASTOR OIL 60 GM TUBE TOP ×2 (09:11→21:03)
[2018-04-09] MEDS: AMLODIPINE 5 MG TAB NGT (09:11)
[2018-04-09] MEDS: NYSTATIN 30 GM POWDER BTL TOP ×2 (09:11→21:04)
[2018-04-09] MEDS: COLLAGENASE 5 GM (UD JAR) TOP (09:12)
[2018-04-09] MEDS ORDERED: HEPARIN 1000 UNITS/ML 10 ML INJ (09:56)
[2018-04-09 10:07] LABS: IMMEDIATE SPIN CROSSMATCH 1 1
[2018-04-09 12:14] LABS: HAAIG REFLEX REFLEX FILED
[2018-04-09 12:55] LABS: HEPATITIS B SURFACE ANTIGEN NEGATIVE (NEGATIVE)
[2018-04-09 13:13] LABS: HEPATITIS B CORE ANTIBODY NEGATIVE (NEGATIVE); HEPATITIS C VIRAL ANTIBODY NEGATIVE (NEGATIVE); HIV 1&2 ANTIBODY NEGATIVE (NEGATIVE)
[2018-04-09] MEDS: hydrALAzine 20 MG INJ IV (21:38)
[2018-04-10] MEDS: METHYLPREDNISOLONE 125 MG INJ IV ×2 (00:16→05:25)
[2018-04-10] MEDS: PANTOPRAZOLE 40 MG INJ IV ×2 (05:24→17:43)
[2018-04-10] MEDS: LINEZOLID 600 MG/D5W (PMX) 300 ML IVPB (05:25)
[2018-04-10 06:33] LABS: ADD MAN DIFF? NO
[2018-04-10 06:35] LABS: ABNORMAL IP MESSAGE 1; HEMATOCRIT 29.4 % (42.0-52.0); HEMOGLOBIN 9.6 g/dl (14.0-18.0); LYMPHOCYTES # 0.3 10^3/ul (0.8-2.9); LYMPHOCYTES % 2.8 % (15.0-51.0); MEAN CORPUSCULAR HEMOGLOBIN 27.1 pg (29.0-33.0); MEAN CORPUSCULAR HGB CONC 32.7 g/dl (32.0-37.0); MEAN CORPUSCULAR VOLUME 83.1 fl (82.0-101.0); MONOCYTE # 0.3 10^3/ul (0.3-0.9); MONOCYTES % 2.2 % (0.0-11.0); NEUTROPHIL # 11.5 10^3/ul (1.6-7.5); NEUTROPHILS % 94.5 % (39.0-77.0); NUCLEATED RED BLOOD CELLS% 0.2 /100WBC (0.0-0.0); PLATELET COUNT 248 10^3/UL (140-415); POSITIVE DIFF @See below; RED BLOOD COUNT 3.54 10^6/ul (4.70-6.10); RED CELL DISTRIBUTION WIDTH 15.5 % (11.5-14.5)
[2018-04-10 06:35] LABS: WHITE BLOOD COUNT 12.1 10^3/ul (4.8-10.8)
[2018-04-10 07:01] LABS: MAGNESIUM 2.4 mg/dl (1.7-2.5)
[2018-04-10 07:01] LABS: PHOSPHORUS 4.8 mg/dl (2.5-4.9)
[2018-04-10 07:07] LABS: ALANINE AMINOTRANSFERASE 42 IU/L (13-69); ALBUMIN 3.5 g/dl (3.3-4.9); ALKALINE PHOSPHATASE 60 IU/L (42-121); ANION GAP 19 (8-16); ASPARTATE AMINO TRANSFERASE 30 IU/L (15-46); BILIRUBIN,INDIRECT 0.5 mg/dl (0-1.1); BILIRUBIN,TOTAL 0.5 mg/dl (0.2-1.3); CALCIUM 10.1 mg/dl (8.4-10.2); CARBON DIOXIDE 22 mmol/L (21-31); CHLORIDE 95 mmol/L (97-110); CREATININE 4.56 mg/dl (0.61-1.24); GLUCOSE 149 mg/dl (70-220); POTASSIUM 4.4 mmol/L (3.5-5.1); SODIUM 132 mmol/L (135-144)
[2018-04-10 07:17] LABS: BLOOD UREA NITROGEN 129 mg/dl (7-20)
[2018-04-10] MEDS: ALLOPURINOL 100 MG TAB PO ×2 (08:26→21:00)
[2018-04-10] MEDS: AMLODIPINE 5 MG TAB NGT (08:27)
[2018-04-10] MEDS: COLLAGENASE 5 GM (UD JAR) TOP (08:27)
[2018-04-10] MEDS: SUCRALFATE (100 MG/ML) 10ML CUP GTB ×4 (08:27→21:00)
[2018-04-10] MEDS: CEFEPIME 1GM/50 ML (PMX) 50 ML IVPB (08:27)
[2018-04-10] MEDS: METOPROLOL 25 MG TAB NGT ×3 (08:27→21:00)
[2018-04-10] MEDS: BALSAM PERU/CASTOR OIL 60 GM TUBE TOP ×2 (08:28→21:00)
[2018-04-10] MEDS: ALBUTEROL/IPRATROPIUM (NEB) 3 ML AMP HHN ×3 (09:18→23:45)
[2018-04-10] MEDS: HEPARIN 1000 UNITS/ML 10 ML INJ CATHETER (13:00)
[2018-04-10] MEDS: METHYLPREDNISOLONE 40 MG INJ IV ×2 (13:22→22:00)
[2018-04-10] MEDS: NYSTATIN 30 GM POWDER BTL TOP ×2 (13:22→21:00)
[2018-04-10] MEDS: LIDOCAINE 1% (MDV) 20 ML INJ SC (14:00)
[2018-04-10] MEDS ORDERED: ALBUMIN HUMAN 25% 100 ML IV (20:30)
[2018-04-10] MEDS: MANNITOL 25% 50 ML IV (23:55)
[2018-04-11] MEDS: HEPARIN 1000 UNITS/ML 10 ML INJ CATHETER ×2 (01:15→14:18)
[2018-04-11 05:46] LABS: ADD MAN DIFF? NO
[2018-04-11 05:59] LABS: ABNORMAL IP MESSAGE 1; BASOPHILS % 0.1 % (0.0-2.0); HEMATOCRIT 26.7 % (42.0-52.0); LYMPHOCYTES # 0.5 10^3/ul (0.8-2.9); LYMPHOCYTES % 2.9 % (15.0-51.0); MEAN CORPUSCULAR HEMOGLOBIN 27.9 pg (29.0-33.0); MEAN CORPUSCULAR HGB CONC 33.7 g/dl (32.0-37.0); MEAN CORPUSCULAR VOLUME 82.7 fl (82.0-101.0); MEAN PLATELET VOLUME 11.4 fl (7.4-10.4); MONOCYTES % 5.7 % (0.0-11.0); NEUTROPHIL # 16.7 10^3/ul (1.6-7.5); NEUTROPHILS % 90.8 % (39.0-77.0); NUCLEATED RED BLOOD CELLS% 0.1 /100WBC (0.0-0.0); PLATELET COUNT 200 10^3/UL (140-415); POSITIVE DIFF @See below; RED BLOOD COUNT 3.23 10^6/ul (4.70-6.10); RED CELL DISTRIBUTION WIDTH 15.6 % (11.5-14.5)
[2018-04-11 05:59] LABS: WHITE BLOOD COUNT 18.4 10^3/ul (4.8-10.8)
[2018-04-11] MEDS: PANTOPRAZOLE 40 MG INJ IV ×2 (06:09→17:45)
[2018-04-11] MEDS: METHYLPREDNISOLONE 40 MG INJ IV ×3 (06:09→22:07)
[2018-04-11 06:10] LABS: ANION GAP 13 (8-16); BLOOD UREA NITROGEN 86 mg/dl (7-20); CALCIUM 9.3 mg/dl (8.4-10.2); CARBON DIOXIDE 25 mmol/L (21-31); CHLORIDE 98 mmol/L (97-110); CREATININE 3.09 mg/dl (0.61-1.24); GLUCOSE 113 mg/dl (70-220); POTASSIUM 3.6 mmol/L (3.5-5.1); SODIUM 132 mmol/L (135-144)
[2018-04-11 06:33] LABS: MAGNESIUM 2.2 mg/dl (1.7-2.5)
[2018-04-11 06:33] LABS: PHOSPHORUS 3.8 mg/dl (2.5-4.9)
[2018-04-11] MEDS: ALBUTEROL/IPRATROPIUM (NEB) 3 ML AMP HHN ×3 (08:49→23:07)
[2018-04-11] MEDS: COLLAGENASE 5 GM (UD JAR) TOP (09:35)
[2018-04-11] MEDS: NYSTATIN 30 GM POWDER BTL TOP ×2 (09:36→21:14)
[2018-04-11] MEDS: SUCRALFATE (100 MG/ML) 10ML CUP GTB ×4 (09:36→21:00)
[2018-04-11] MEDS: BALSAM PERU/CASTOR OIL 60 GM TUBE TOP ×2 (09:36→21:14)
[2018-04-11] MEDS: METOPROLOL 25 MG TAB NGT ×3 (09:37→21:14)
[2018-04-11] MEDS: ALLOPURINOL 100 MG TAB PO ×2 (09:37→21:14)
[2018-04-11] MEDS: AMLODIPINE 5 MG TAB NGT (09:37)
[2018-04-11] MEDS ORDERED: ACETAMINOPHEN 650MG/20.3ML CUP GTB (14:30)
[2018-04-11 20:09] LABS: AADO2 Arterial 594.9 mmHg (7.0-24.0); Allen Test ACCEPTAB; Arterial Base Excess 0.1 mmol/L (-3.0-3); Arterial Blood Gas Oxygen Sat 91.1 mmHG (95.0-100.0); Arterial COHb 0.1 % (0.0-3.0); Arterial Fraction of Oxyhgb 90.6 % (93.0-99.0); Arterial HCO3 26.7 mmol/L (22.0-26.0); Arterial MetHb 0.4 % (0.0-1.5); Arterial Total Hemglobin 12.1 g/dl (12.0-18.0); Blood Gas IEPAP 15/5; Blood Gas PS 10; MODE MASK - BIPAP; Site Right Radial
[2018-04-11] MEDS: DILTIAZEM 25 MG INJ IV (20:44)
[2018-04-11 22:29] LABS: ANION GAP 12 (8-16); BLOOD UREA NITROGEN 47 mg/dl (7-20); CALCIUM 9.6 mg/dl (8.4-10.2); CARBON DIOXIDE 28 mmol/L (21-31); CHLORIDE 98 mmol/L (97-110); CREATININE 1.84 mg/dl (0.61-1.24); GLUCOSE 131 mg/dl (70-220); MAGNESIUM 2.1 mg/dl (1.7-2.5); POTASSIUM 3.7 mmol/L (3.5-5.1); SODIUM 134 mmol/L (135-144)
[2018-04-11] MEDS: hydrALAzine 20 MG INJ IV (23:48)
[2018-04-12] MEDS: METOPROLOL 5 MG INJ IV (00:06)
[2018-04-12 05:29] LABS: ADD MAN DIFF? NO
[2018-04-12 05:30] LABS: WHITE BLOOD COUNT 53.7 10^3/ul (4.8-10.8)
[2018-04-12 05:30] LABS: ABNORMAL IP MESSAGE 1; BASOPHIL # 0.1 10^3/ul (0.0-0.1); BASOPHILS % 0.2 % (0.0-2.0); HEMATOCRIT 33.1 % (42.0-52.0); HEMOGLOBIN 10.8 g/dl (14.0-18.0); LYMPHOCYTES # 0.2 10^3/ul (0.8-2.9); LYMPHOCYTES % 0.4 % (15.0-51.0); MEAN CORPUSCULAR HGB CONC 32.6 g/dl (32.0-37.0); MEAN CORPUSCULAR VOLUME 85.8 fl (82.0-101.0); MEAN PLATELET VOLUME 11.7 fl (7.4-10.4); MONOCYTES % 3.7 % (0.0-11.0); NEUTROPHIL # 50.8 10^3/ul (1.6-7.5); NEUTROPHILS % 94.6 % (39.0-77.0); NUCLEATED RED BLOOD CELLS% 0.1 /100WBC (0.0-0.0); PLATELET COUNT 202 10^3/UL (140-415); POSITIVE DIFF @See below; RED BLOOD COUNT 3.86 10^6/ul (4.70-6.10); RED CELL DISTRIBUTION WIDTH 15.9 % (11.5-14.5)
[2018-04-12 05:37] LABS: PATH REVIEW? YES
[2018-04-12 05:53] LABS: PHOSPHORUS 3.9 mg/dl (2.5-4.9)
[2018-04-12 05:53] LABS: MAGNESIUM 2.1 mg/dl (1.7-2.5)
[2018-04-12] MEDS: PANTOPRAZOLE 40 MG INJ IV ×2 (05:53→17:43)
[2018-04-12] MEDS: METHYLPREDNISOLONE 40 MG INJ IV ×3 (05:53→21:54)
[2018-04-12 05:58] LABS: ANION GAP 14 (8-16); BLOOD UREA NITROGEN 53 mg/dl (7-20); CALCIUM 9.6 mg/dl (8.4-10.2); CARBON DIOXIDE 28 mmol/L (21-31); CHLORIDE 99 mmol/L (97-110); CREATININE 2.11 mg/dl (0.61-1.24); GLUCOSE 103 mg/dl (70-220); POTASSIUM 3.8 mmol/L (3.5-5.1); SODIUM 137 mmol/L (135-144)
[2018-04-12 07:14] LABS: BAND NEUTROPHILS #M 1.6 10^3/ul (0.0-0.6); BAND NEUTROPHILS % (M) 3 % (0-4); ERYTHROBLAST% (NRBC) (M) 1 % (0-0); MONOCYTES % (M) 2 % (0-11); PLATELET ESTIMATE NORMAL; POIKILOCYTOSIS 1+ (0-0); SEG NEUT #M 51.9 10^3/ul (1.6-7.5); SEGMENTED NEUTROPHILS (M) % 95 % (39-77); SMUDGE%M 23 % (0-0)
[2018-04-12] MEDS: METOPROLOL 25 MG TAB NGT ×3 (08:14→21:08)
[2018-04-12] MEDS: AMLODIPINE 5 MG TAB NGT (08:15)
[2018-04-12] MEDS: ALLOPURINOL 100 MG TAB PO ×2 (08:15→21:07)
[2018-04-12] MEDS: COLLAGENASE 5 GM (UD JAR) TOP (09:00)
[2018-04-12] MEDS: SUCRALFATE (100 MG/ML) 10ML CUP GTB ×4 (09:07→21:07)
[2018-04-12] MEDS: NYSTATIN 30 GM POWDER BTL TOP ×2 (09:08→21:08)
[2018-04-12] MEDS ORDERED: VANCOMYCIN IV PER PHARMACY XX (09:30)
[2018-04-12] MEDS: CEFEPIME 1GM/50 ML (PMX) 50 ML IVPB (10:40)
[2018-04-12] MEDS: VANCOMYCIN 1 GM 250 ML IVPB (11:12)
[2018-04-12] MEDS: ALBUTEROL/IPRATROPIUM (NEB) 3 ML AMP HHN ×3 (11:16→23:43)
[2018-04-12] MEDS: BALSAM PERU/CASTOR OIL 60 GM TUBE TOP ×2 (13:35→21:08)
[2018-04-13 05:02] LABS: ADD MAN DIFF? NO
[2018-04-13 05:10] LABS: ABNORMAL IP MESSAGE 1; BASOPHILS % 0.1 % (0.0-2.0); HEMOGLOBIN 8.3 g/dl (14.0-18.0); LYMPHOCYTES # 0.2 10^3/ul (0.8-2.9); LYMPHOCYTES % 0.6 % (15.0-51.0); MEAN CORPUSCULAR HEMOGLOBIN 26.9 pg (29.0-33.0); MEAN CORPUSCULAR HGB CONC 31.9 g/dl (32.0-37.0); MEAN CORPUSCULAR VOLUME 84.4 fl (82.0-101.0); MEAN PLATELET VOLUME 11.8 fl (7.4-10.4); MONOCYTE # 0.9 10^3/ul (0.3-0.9); MONOCYTES % 2.8 % (0.0-11.0); NEUTROPHIL # 30.1 10^3/ul (1.6-7.5); NEUTROPHILS % 95.4 % (39.0-77.0); NUCLEATED RED BLOOD CELLS% 0.1 /100WBC (0.0-0.0); PLATELET COUNT 128 10^3/UL (140-415); POSITIVE DIFF @See below; RED BLOOD COUNT 3.08 10^6/ul (4.70-6.10); RED CELL DISTRIBUTION WIDTH 16.4 % (11.5-14.5)
[2018-04-13 05:10] LABS: WHITE BLOOD COUNT 31.6 10^3/ul (4.8-10.8)
[2018-04-13] MEDS: PANTOPRAZOLE 40 MG INJ IV ×2 (05:21→17:19)
[2018-04-13] MEDS: METHYLPREDNISOLONE 40 MG INJ IV ×3 (05:21→22:45)
[2018-04-13 05:29] LABS: MAGNESIUM 2.3 mg/dl (1.7-2.5)
[2018-04-13 05:29] LABS: PHOSPHORUS 3.6 mg/dl (2.5-4.9)
[2018-04-13 05:34] LABS: ANION GAP 12 (8-16); BLOOD UREA NITROGEN 71 mg/dl (7-20); CALCIUM 9.7 mg/dl (8.4-10.2); CARBON DIOXIDE 29 mmol/L (21-31); CHLORIDE 99 mmol/L (97-110); CREATININE 2.54 mg/dl (0.61-1.24); GLUCOSE 173 mg/dl (70-220); POTASSIUM 4.2 mmol/L (3.5-5.1); SODIUM 136 mmol/L (135-144)
[2018-04-13] MEDS: METOPROLOL 5 MG INJ IV ×2 (06:20→19:32)
[2018-04-13] MEDS: ALBUTEROL/IPRATROPIUM (NEB) 3 ML AMP HHN ×3 (08:20→23:24)
[2018-04-13] MEDS: AMLODIPINE 5 MG TAB NGT (08:38)
[2018-04-13] MEDS: SUCRALFATE (100 MG/ML) 10ML CUP GTB ×3 (08:38→17:19)
[2018-04-13] MEDS: ALLOPURINOL 100 MG TAB PO ×2 (08:38→20:58)
[2018-04-13] MEDS: NYSTATIN 30 GM POWDER BTL TOP ×2 (08:39→20:59)
[2018-04-13] MEDS: METOPROLOL 25 MG TAB NGT ×3 (08:39→20:59)
[2018-04-13] MEDS: BALSAM PERU/CASTOR OIL 60 GM TUBE TOP ×2 (08:40→20:59)
[2018-04-13] MEDS: COLLAGENASE 5 GM (UD JAR) TOP (08:40)
[2018-04-13 09:07] LABS: AADO2 Arterial 194.5 mmHg (7.0-24.0); Allen Test ACCEPTAB; Arterial Base Excess 2.7 mmol/L (-3.0-3); Arterial Blood Gas Oxygen Sat 86.6 mmHG (95.0-100.0); Arterial COHb 0.3 % (0.0-3.0); Arterial Fraction of Oxyhgb 86.1 % (93.0-99.0); Arterial HCO3 26.4 mmol/L (22.0-26.0); Arterial MetHb 0.3 % (0.0-1.5); Arterial Total Hemglobin 8.8 g/dl (12.0-18.0); Arterial pCO2 36.8 mmhg (35-45); Blood Gas IEPAP 15/5; Blood Gas PS 10; MODE MASK - BIPAP; Site Right Radial
[2018-04-13] MEDS: CEFEPIME 1GM/50 ML (PMX) 50 ML IVPB (12:07)
[2018-04-13] MEDS: HEPARIN 1000 UNITS/ML 10 ML INJ CATHETER (20:35)
[2018-04-14] MEDS: METOPROLOL 5 MG INJ IV ×3 (01:58→18:43)
[2018-04-14] MEDS: SUCRALFATE (100 MG/ML) 10ML CUP GTB ×7 (04:26→20:05)
[2018-04-14 05:02] LABS: ADD MAN DIFF? NO
[2018-04-14 05:03] LABS: WHITE BLOOD COUNT 23.5 10^3/ul (4.8-10.8)
[2018-04-14 05:03] LABS: ABNORMAL IP MESSAGE 1; BASOPHILS % 0.1 % (0.0-2.0); HEMATOCRIT 25.2 % (42.0-52.0); HEMOGLOBIN 8.1 g/dl (14.0-18.0); LYMPHOCYTES # 0.2 10^3/ul (0.8-2.9); LYMPHOCYTES % 0.8 % (15.0-51.0); MEAN CORPUSCULAR HEMOGLOBIN 27.6 pg (29.0-33.0); MEAN CORPUSCULAR HGB CONC 32.1 g/dl (32.0-37.0); MEAN CORPUSCULAR VOLUME 85.7 fl (82.0-101.0); MONOCYTES % 4.1 % (0.0-11.0); NEUTROPHIL # 22.1 10^3/ul (1.6-7.5); NEUTROPHILS % 94.2 % (39.0-77.0); NUCLEATED RED BLOOD CELLS% 0.2 /100WBC (0.0-0.0); PLATELET COUNT 106 10^3/UL (140-415); POSITIVE DIFF @See below; RED BLOOD COUNT 2.94 10^6/ul (4.70-6.10); RED CELL DISTRIBUTION WIDTH 16.5 % (11.5-14.5)
[2018-04-14 05:27] LABS: MAGNESIUM 2.2 mg/dl (1.7-2.5)
[2018-04-14 05:27] LABS: PHOSPHORUS 2.5 mg/dl (2.5-4.9); VANCOMYCIN,RANDOM 10.1 ug/ml
[2018-04-14 05:32] LABS: ALANINE AMINOTRANSFERASE 38 IU/L (13-69); ALBUMIN 2.8 g/dl (3.3-4.9); ALKALINE PHOSPHATASE 82 IU/L (42-121); ANION GAP 13 (8-16); ASPARTATE AMINO TRANSFERASE 25 IU/L (15-46); BILIRUBIN,INDIRECT 0.5 mg/dl (0-1.1); BILIRUBIN,TOTAL 0.5 mg/dl (0.2-1.3); BLOOD UREA NITROGEN 50 mg/dl (7-20); CALCIUM 9.6 mg/dl (8.4-10.2); CARBON DIOXIDE 30 mmol/L (21-31); CHLORIDE 99 mmol/L (97-110); GLUCOSE 165 mg/dl (70-220); POTASSIUM 4.1 mmol/L (3.5-5.1); SODIUM 138 mmol/L (135-144); TOTAL PROTEIN 5.5 g/dl (6.1-8.1)
[2018-04-14 05:33] LABS: ALBUMIN/GLOBULIN RATIO 1.03
[2018-04-14] MEDS: PANTOPRAZOLE 40 MG INJ IV ×2 (05:43→17:05)
[2018-04-14] MEDS: METHYLPREDNISOLONE 40 MG INJ IV ×3 (05:43→22:24)
[2018-04-14] MEDS: ALLOPURINOL 100 MG TAB PO ×2 (08:01→20:04)
[2018-04-14] MEDS: AMLODIPINE 5 MG TAB NGT (08:01)
[2018-04-14] MEDS: METOPROLOL 25 MG TAB NGT ×3 (08:01→20:05)
[2018-04-14] MEDS: COLLAGENASE 5 GM (UD JAR) TOP (08:02)
[2018-04-14] MEDS: NYSTATIN 30 GM POWDER BTL TOP ×2 (08:02→20:05)
[2018-04-14] MEDS: BALSAM PERU/CASTOR OIL 60 GM TUBE TOP ×2 (08:02→20:06)
[2018-04-14] MEDS: ALBUTEROL/IPRATROPIUM (NEB) 3 ML AMP HHN ×3 (08:21→23:27)
[2018-04-14] MEDS: CEFEPIME 1GM/50 ML (PMX) 50 ML IVPB (10:38)
[2018-04-14] MEDS: FLUCONAZOLE 200 MG (PMX) 100 ML IVPB (11:17)
[2018-04-14] MEDS: VANCOMYCIN 750 MG in SOD CHLORIDE 0.9% 150 ML IVPB (16:07)
[2018-04-15] MEDS: METOPROLOL 5 MG INJ IV (03:31)
[2018-04-15 05:22] LABS: ADD MAN DIFF? NO
[2018-04-15 05:23] LABS: ABNORMAL IP MESSAGE 1; BASOPHILS % 0.1 % (0.0-2.0); HEMATOCRIT 22.7 % (42.0-52.0); HEMOGLOBIN 7.2 g/dl (14.0-18.0); LYMPHOCYTES # 0.2 10^3/ul (0.8-2.9); LYMPHOCYTES % 1.2 % (15.0-51.0); MEAN CORPUSCULAR HEMOGLOBIN 27.2 pg (29.0-33.0); MEAN CORPUSCULAR HGB CONC 31.7 g/dl (32.0-37.0); MEAN CORPUSCULAR VOLUME 85.7 fl (82.0-101.0); MEAN PLATELET VOLUME 12.6 fl (7.4-10.4); MONOCYTE # 0.9 10^3/ul (0.3-0.9); MONOCYTES % 5.4 % (0.0-11.0); NEUTROPHIL # 15.3 10^3/ul (1.6-7.5); NEUTROPHILS % 92.6 % (39.0-77.0); NUCLEATED RED BLOOD CELLS% 0.2 /100WBC (0.0-0.0); PLATELET COUNT 96 10^3/UL (140-415); POSITIVE DIFF @See below; RED BLOOD COUNT 2.65 10^6/ul (4.70-6.10); RED CELL DISTRIBUTION WIDTH 16.9 % (11.5-14.5)
[2018-04-15 05:23] LABS: WHITE BLOOD COUNT 16.5 10^3/ul (4.8-10.8)
[2018-04-15 05:51] LABS: MAGNESIUM 2.4 mg/dl (1.7-2.5)
[2018-04-15 05:51] LABS: PHOSPHORUS 3.2 mg/dl (2.5-4.9)
[2018-04-15] MEDS: METHYLPREDNISOLONE 40 MG INJ IV ×3 (05:51→21:22)
[2018-04-15] MEDS: PANTOPRAZOLE 40 MG INJ IV ×2 (05:51→17:17)
[2018-04-15 05:53] LABS: ANION GAP 13 (8-16); BLOOD UREA NITROGEN 80 mg/dl (7-20); CALCIUM 9.6 mg/dl (8.4-10.2); CARBON DIOXIDE 28 mmol/L (21-31); CHLORIDE 100 mmol/L (97-110); CREATININE 2.85 mg/dl (0.61-1.24); GLUCOSE 141 mg/dl (70-220); POTASSIUM 4.7 mmol/L (3.5-5.1); SODIUM 136 mmol/L (135-144)
[2018-04-15] MEDS: ALBUTEROL/IPRATROPIUM (NEB) 3 ML AMP HHN ×3 (07:56→23:36)
[2018-04-15] MEDS: METOPROLOL 25 MG TAB NGT ×3 (09:21→21:23)
[2018-04-15] MEDS: AMLODIPINE 5 MG TAB NGT (09:21)
[2018-04-15] MEDS: SUCRALFATE (100 MG/ML) 10ML CUP GTB ×4 (09:21→22:13)
[2018-04-15] MEDS: ALLOPURINOL 100 MG TAB PO ×2 (09:21→21:22)
[2018-04-15] MEDS: NYSTATIN 30 GM POWDER BTL TOP ×2 (09:21→21:24)
[2018-04-15] MEDS: COLLAGENASE 5 GM (UD JAR) TOP (09:22)
[2018-04-15] MEDS: BALSAM PERU/CASTOR OIL 60 GM TUBE TOP ×2 (09:22→21:25)
[2018-04-15] MEDS: FLUCONAZOLE 200 MG (PMX) 100 ML IVPB (11:13)
[2018-04-15] MEDS: CEFEPIME 1GM/50 ML (PMX) 50 ML IVPB (14:27)
[2018-04-16] MEDS: PANTOPRAZOLE 40 MG INJ IV ×2 (05:36→18:43)
[2018-04-16] MEDS: METHYLPREDNISOLONE 40 MG INJ IV ×3 (05:36→22:25)
[2018-04-16 06:00] LABS: ADD MAN DIFF? NO
[2018-04-16 06:04] LABS: ABNORMAL IP MESSAGE 1; BASOPHILS % 0.1 % (0.0-2.0); HEMOGLOBIN 7.1 g/dl (14.0-18.0); MEAN CORPUSCULAR HEMOGLOBIN 27.7 pg (29.0-33.0); MEAN PLATELET VOLUME 13.7 fl (7.4-10.4); NUCLEATED RED BLOOD CELLS% 0.2 /100WBC (0.0-0.0); POSITIVE DIFF @See below; RED BLOOD COUNT 2.56 10^6/ul (4.70-6.10)
[2018-04-16 06:19] LABS: WHITE BLOOD COUNT 16.2 10^3/ul (4.8-10.8)
[2018-04-16 06:19] LABS: HEMATOCRIT 22.1 % (42.0-52.0); LYMPHOCYTES # 0.2 10^3/ul (0.8-2.9); LYMPHOCYTES % 1.3 % (15.0-51.0); MEAN CORPUSCULAR HGB CONC 32.1 g/dl (32.0-37.0); MEAN CORPUSCULAR VOLUME 86.3 fl (82.0-101.0); MONOCYTE # 0.7 10^3/ul (0.3-0.9); MONOCYTES % 4.4 % (0.0-11.0); NEUTROPHIL # 15.1 10^3/ul (1.6-7.5); NEUTROPHILS % 93.3 % (39.0-77.0); PLATELET COUNT 113 10^3/UL (140-415)
[2018-04-16 06:44] LABS: ANION GAP 13 (8-16); BLOOD UREA NITROGEN 101 mg/dl (7-20); CALCIUM 9.6 mg/dl (8.4-10.2); CARBON DIOXIDE 28 mmol/L (21-31); CHLORIDE 99 mmol/L (97-110); GLUCOSE 155 mg/dl (70-220); POTASSIUM 5.2 mmol/L (3.5-5.1); SODIUM 135 mmol/L (135-144)
[2018-04-16 06:46] LABS: MAGNESIUM 2.5 mg/dl (1.7-2.5)
[2018-04-16 06:46] LABS: PHOSPHORUS 3.4 mg/dl (2.5-4.9)
[2018-04-16] MEDS: SUCRALFATE (100 MG/ML) 10ML CUP GTB ×4 (08:00→22:25)
[2018-04-16] MEDS: ALLOPURINOL 100 MG TAB PO ×2 (08:00→22:25)
[2018-04-16] MEDS: COLLAGENASE 5 GM (UD JAR) TOP (08:01)
[2018-04-16] MEDS: METOPROLOL 25 MG TAB NGT ×3 (08:01→22:26)
[2018-04-16] MEDS: AMLODIPINE 5 MG TAB NGT (08:01)
[2018-04-16] MEDS: NYSTATIN 30 GM POWDER BTL TOP ×2 (08:02→22:27)
[2018-04-16] MEDS: BALSAM PERU/CASTOR OIL 60 GM TUBE TOP ×2 (08:02→22:27)
[2018-04-16] MEDS: ALBUTEROL/IPRATROPIUM (NEB) 3 ML AMP HHN ×2 (08:34→15:42)
[2018-04-16] MEDS: HEPARIN 1000 UNITS/ML 10 ML INJ CATHETER (10:51)
[2018-04-16] MEDS: CEFEPIME 1GM/50 ML (PMX) 50 ML IVPB (13:24)
[2018-04-16] MEDS: FLUCONAZOLE 200 MG (PMX) 100 ML IVPB (13:25)
[2018-04-16] MEDS: hydrALAzine 20 MG INJ IV (15:37)
[2018-04-17 05:55] LABS: ADD MAN DIFF? NO
[2018-04-17 06:02] LABS: WHITE BLOOD COUNT 17.3 10^3/ul (4.8-10.8)
[2018-04-17 06:02] LABS: ABNORMAL IP MESSAGE 1; HEMATOCRIT 23.3 % (42.0-52.0); HEMOGLOBIN 7.4 g/dl (14.0-18.0); LYMPHOCYTES # 0.2 10^3/ul (0.8-2.9); MEAN CORPUSCULAR HEMOGLOBIN 27.1 pg (29.0-33.0); MEAN CORPUSCULAR HGB CONC 31.8 g/dl (32.0-37.0); MEAN CORPUSCULAR VOLUME 85.3 fl (82.0-101.0); MEAN PLATELET VOLUME 13.5 fl (7.4-10.4); MONOCYTE # 0.8 10^3/ul (0.3-0.9); MONOCYTES % 4.9 % (0.0-11.0); NEUTROPHIL # 16.2 10^3/ul (1.6-7.5); NEUTROPHILS % 93.4 % (39.0-77.0); NUCLEATED RED BLOOD CELLS% 0.1 /100WBC (0.0-0.0); PLATELET COUNT 132 10^3/UL (140-415); POSITIVE DIFF @See below; RED BLOOD COUNT 2.73 10^6/ul (4.70-6.10); RED CELL DISTRIBUTION WIDTH 17.2 % (11.5-14.5)
[2018-04-17] MEDS: METHYLPREDNISOLONE 40 MG INJ IV ×2 (06:16→17:48)
[2018-04-17] MEDS: PANTOPRAZOLE 40 MG INJ IV ×2 (06:16→17:48)
[2018-04-17 06:40] LABS: VANCOMYCIN,RANDOM 11.1 ug/ml
[2018-04-17 07:52] LABS: ANION GAP 13 (8-16); BLOOD UREA NITROGEN 60 mg/dl (7-20); CALCIUM 9.4 mg/dl (8.4-10.2); CARBON DIOXIDE 29 mmol/L (21-31); CHLORIDE 100 mmol/L (97-110); CREATININE 2.08 mg/dl (0.61-1.24); GLUCOSE 152 mg/dl (70-220); POTASSIUM 4.8 mmol/L (3.5-5.1); SODIUM 137 mmol/L (135-144)
[2018-04-17] MEDS: ALBUTEROL/IPRATROPIUM (NEB) 3 ML AMP HHN ×3 (08:00→16:00)
[2018-04-17 08:13] LABS: MAGNESIUM 2.2 mg/dl (1.7-2.5)
[2018-04-17 08:13] LABS: PHOSPHORUS 3.2 mg/dl (2.5-4.9)
[2018-04-17] MEDS: COLLAGENASE 5 GM (UD JAR) TOP (09:03)
[2018-04-17] MEDS: SUCRALFATE (100 MG/ML) 10ML CUP GTB ×4 (09:03→21:48)
[2018-04-17] MEDS: BALSAM PERU/CASTOR OIL 60 GM TUBE TOP ×2 (09:04→21:47)
[2018-04-17] MEDS: NYSTATIN 30 GM POWDER BTL TOP ×2 (09:04→21:47)
[2018-04-17] MEDS: METOPROLOL 25 MG TAB NGT ×3 (09:05→21:48)
[2018-04-17] MEDS: ALLOPURINOL 100 MG TAB PO ×2 (09:05→21:48)
[2018-04-17] MEDS: AMLODIPINE 5 MG TAB NGT (09:05)
[2018-04-17] MEDS: FLUCONAZOLE 200 MG (PMX) 100 ML IVPB (12:00)
[2018-04-17] MEDS: CEFEPIME 1GM/50 ML (PMX) 50 ML IVPB (12:00)
[2018-04-17] MEDS: VANCOMYCIN 750 MG in SOD CHLORIDE 0.9% 150 ML IVPB (15:27)
[2018-04-18] MEDS: METHYLPREDNISOLONE 40 MG INJ IV ×2 (05:02→17:05)
[2018-04-18] MEDS: PANTOPRAZOLE 40 MG INJ IV ×2 (05:04→17:05)
[2018-04-18] MEDS: ALBUTEROL/IPRATROPIUM (NEB) 3 ML AMP HHN ×3 (07:48→16:00)
[2018-04-18] MEDS: METOPROLOL 25 MG TAB NGT ×4 (08:19→20:49)
[2018-04-18] MEDS: AMLODIPINE 5 MG TAB NGT (08:19)
[2018-04-18] MEDS: ALLOPURINOL 100 MG TAB PO ×2 (08:19→20:49)
[2018-04-18] MEDS: SUCRALFATE (100 MG/ML) 10ML CUP GTB ×4 (08:19→20:50)
[2018-04-18] MEDS: COLLAGENASE 5 GM (UD JAR) TOP (08:19)
[2018-04-18] MEDS: NYSTATIN 30 GM POWDER BTL TOP ×2 (08:20→20:50)
[2018-04-18] MEDS: BALSAM PERU/CASTOR OIL 60 GM TUBE TOP ×2 (08:20→20:50)
[2018-04-18] MEDS: FLUCONAZOLE 200 MG (PMX) 100 ML IVPB (12:04)
[2018-04-18] MEDS: METOPROLOL 5 MG INJ IV ×3 (12:17→15:27)
[2018-04-18] MEDS: DILTIAZEM 25 MG INJ IV (16:52)
[2018-04-18] MEDS: DILTIAZEM-D5W 125MG/125ML DRIP 125 ML IV (18:32)
[2018-04-19] MEDS: ALBUTEROL/IPRATROPIUM (NEB) 3 ML AMP HHN ×4 (00:53→23:54)
[2018-04-19] MEDS: METHYLPREDNISOLONE 40 MG INJ IV ×2 (05:59→17:16)
[2018-04-19] MEDS: PANTOPRAZOLE 40 MG INJ IV ×2 (05:59→17:16)
[2018-04-19 06:24] LABS: ADD MAN DIFF? NO
[2018-04-19 06:34] LABS: ABNORMAL IP MESSAGE 1; HEMATOCRIT 24.3 % (42.0-52.0); HEMOGLOBIN 7.8 g/dl (14.0-18.0); LYMPHOCYTES # 0.2 10^3/ul (0.8-2.9); MEAN CORPUSCULAR HEMOGLOBIN 28.1 pg (29.0-33.0); MEAN CORPUSCULAR HGB CONC 32.1 g/dl (32.0-37.0); MEAN CORPUSCULAR VOLUME 87.4 fl (82.0-101.0); MEAN PLATELET VOLUME 12.9 fl (7.4-10.4); MONOCYTE # 0.8 10^3/ul (0.3-0.9); MONOCYTES % 3.6 % (0.0-11.0); NEUTROPHIL # 20.1 10^3/ul (1.6-7.5); NEUTROPHILS % 94.6 % (39.0-77.0); NUCLEATED RED BLOOD CELLS% 0.1 /100WBC (0.0-0.0); PLATELET COUNT 179 10^3/UL (140-415); POSITIVE DIFF @See below; RED BLOOD COUNT 2.78 10^6/ul (4.70-6.10); RED CELL DISTRIBUTION WIDTH 17.3 % (11.5-14.5)
[2018-04-19 06:34] LABS: WHITE BLOOD COUNT 21.2 10^3/ul (4.8-10.8)
[2018-04-19 07:05] LABS: ANION GAP 15 (8-16); BLOOD UREA NITROGEN 108 mg/dl (7-20); CALCIUM 9.5 mg/dl (8.4-10.2); CARBON DIOXIDE 28 mmol/L (21-31); CHLORIDE 97 mmol/L (97-110); CREATININE 3.38 mg/dl (0.61-1.24); GLUCOSE 143 mg/dl (70-220); SODIUM 134 mmol/L (135-144)
[2018-04-19 07:07] LABS: PHOSPHORUS 4.9 mg/dl (2.5-4.9)
[2018-04-19 07:07] LABS: MAGNESIUM 2.4 mg/dl (1.7-2.5)
[2018-04-19 07:11] LABS: POTASSIUM 6.3 mmol/L (3.5-5.1)
[2018-04-19] MEDS ORDERED: DEXTROSE 50% 50 ML SYRINGE IV (08:00)
[2018-04-19] MEDS: COLLAGENASE 5 GM (UD JAR) TOP (09:05)
[2018-04-19] MEDS: SUCRALFATE (100 MG/ML) 10ML CUP GTB ×4 (09:05→20:49)
[2018-04-19] MEDS: predniSONE 20 MG TAB GTB (09:06)
[2018-04-19] MEDS: METOPROLOL 25 MG TAB NGT ×4 (09:06→20:50)
[2018-04-19] MEDS: AMLODIPINE 5 MG TAB NGT (09:06)
[2018-04-19] MEDS: BALSAM PERU/CASTOR OIL 60 GM TUBE TOP ×2 (09:07→20:51)
[2018-04-19] MEDS: NYSTATIN 30 GM POWDER BTL TOP ×2 (09:07→20:51)
[2018-04-19] MEDS: ALLOPURINOL 100 MG TAB PO ×2 (09:09→20:49)
[2018-04-19] MEDS: DEXTROSE 50% 50 ML SYRINGE IV (09:15)
[2018-04-19] MEDS: INSULIN REGULAR, HUMAN 100 UNIT/1 ML 3ML VIAL IVP (09:15)
[2018-04-19] MEDS: CALCIUM GLUCONATE 10% 1 GM in DEXTROSE 5% 100 ML IVPB (09:22)
[2018-04-19] MEDS: FLUCONAZOLE 200 MG (PMX) 100 ML IVPB (12:22)
[2018-04-19] MEDS: DILTIAZEM-D5W 125MG/125ML DRIP 125 ML IV (14:50)
[2018-04-19 15:56] LABS: POTASSIUM 6.1 mmol/L (3.5-5.1)
[2018-04-19] MEDS: NA POLYST SULFON 15 GM/60 ML BTL GTB (17:17)
[2018-04-19 23:33] LABS: ANION GAP 17 (8-16); BLOOD UREA NITROGEN 116 mg/dl (7-20); CALCIUM 9.3 mg/dl (8.4-10.2); CARBON DIOXIDE 27 mmol/L (21-31); CHLORIDE 96 mmol/L (97-110); CREATININE 3.74 mg/dl (0.61-1.24); GLUCOSE 141 mg/dl (70-220); POTASSIUM 5.9 mmol/L (3.5-5.1); SODIUM 134 mmol/L (135-144)
[2018-04-20] MEDS: PANTOPRAZOLE 40 MG INJ IV ×2 (05:47→17:58)
[2018-04-20] MEDS: METHYLPREDNISOLONE 40 MG INJ IV (05:48)
[2018-04-20 05:55] LABS: ADD MAN DIFF? NO
[2018-04-20 06:07] LABS: ABNORMAL IP MESSAGE 1; BASOPHILS % 0.1 % (0.0-2.0); HEMATOCRIT 23.2 % (42.0-52.0); HEMOGLOBIN 7.3 g/dl (14.0-18.0); LYMPHOCYTES # 0.2 10^3/ul (0.8-2.9); LYMPHOCYTES % 0.8 % (15.0-51.0); MEAN CORPUSCULAR HEMOGLOBIN 27.2 pg (29.0-33.0); MEAN CORPUSCULAR HGB CONC 31.5 g/dl (32.0-37.0); MEAN CORPUSCULAR VOLUME 86.6 fl (82.0-101.0); MEAN PLATELET VOLUME 13.5 fl (7.4-10.4); MONOCYTE # 0.6 10^3/ul (0.3-0.9); MONOCYTES % 2.5 % (0.0-11.0); NEUTROPHIL # 21.5 10^3/ul (1.6-7.5); NEUTROPHILS % 95.9 % (39.0-77.0); NUCLEATED RED BLOOD CELLS% 0.2 /100WBC (0.0-0.0); PLATELET COUNT 186 10^3/UL (140-415); POSITIVE DIFF @See below; RED BLOOD COUNT 2.68 10^6/ul (4.70-6.10); RED CELL DISTRIBUTION WIDTH 17.5 % (11.5-14.5)
[2018-04-20 06:07] LABS: WHITE BLOOD COUNT 22.4 10^3/ul (4.8-10.8)
[2018-04-20 07:01] LABS: PHOSPHORUS 4.9 mg/dl (2.5-4.9)
[2018-04-20 07:01] LABS: MAGNESIUM 2.5 mg/dl (1.7-2.5)
[2018-04-20 07:02] LABS: ANION GAP 18 (8-16); BLOOD UREA NITROGEN 120 mg/dl (7-20); CALCIUM 9.3 mg/dl (8.4-10.2); CARBON DIOXIDE 26 mmol/L (21-31); CHLORIDE 97 mmol/L (97-110); CREATININE 3.93 mg/dl (0.61-1.24); GLUCOSE 132 mg/dl (70-220); SODIUM 135 mmol/L (135-144)
[2018-04-20 07:15] LABS: POTASSIUM 6.3 mmol/L (3.5-5.1)
[2018-04-20] MEDS ORDERED: NA POLYST SULFON 15 GM/60 ML BTL NGT (08:00)
[2018-04-20] MEDS: NA POLYST SULFON 15 GM/60 ML BTL GTB (08:00)
[2018-04-20] MEDS: ALBUTEROL/IPRATROPIUM (NEB) 3 ML AMP HHN ×2 (08:06→16:00)
[2018-04-20] MEDS: METOPROLOL 25 MG TAB NGT ×4 (09:00→21:53)
[2018-04-20] MEDS ORDERED: DEXTROSE 50% 50 ML SYRINGE IV (09:00)
[2018-04-20] MEDS: predniSONE 20 MG TAB GTB (09:09)
[2018-04-20] MEDS: ALLOPURINOL 100 MG TAB PO ×2 (09:09→21:53)
[2018-04-20] MEDS: SUCRALFATE (100 MG/ML) 10ML CUP GTB ×4 (09:09→21:52)
[2018-04-20] MEDS: INSULIN REGULAR, HUMAN 100 UNIT/1 ML 3ML VIAL IVP (09:13)
[2018-04-20] MEDS: COLLAGENASE 5 GM (UD JAR) TOP (09:14)
[2018-04-20] MEDS: BALSAM PERU/CASTOR OIL 60 GM TUBE TOP ×2 (09:14→21:53)
[2018-04-20] MEDS: NYSTATIN 30 GM POWDER BTL TOP ×2 (09:14→21:53)
[2018-04-20] MEDS: DEXTROSE 50% 50 ML SYRINGE IV (09:18)
[2018-04-20] MEDS: CALCIUM GLUCONATE 10% 1 GM in DEXTROSE 5% 100 ML IVPB (09:30)
[2018-04-20] MEDS: ALBUMIN HUMAN 25% 100 ML IV (10:42)
[2018-04-20] MEDS: SOD CHLORIDE 0.9% 500 ML IV (10:42)
[2018-04-20] MEDS: HEPARIN 1000 UNITS/ML 10 ML INJ CATHETER (13:57)
[2018-04-20 14:49] LABS: POTASSIUM 4.2 mmol/L (3.5-5.1)
[2018-04-20] MEDS: FLUCONAZOLE 200 MG (PMX) 100 ML IVPB (15:11)
[2018-04-20] MEDS: AMLODIPINE 5 MG TAB NGT (15:11)
[2018-04-20] MEDS ORDERED: ZOLPIDEM 5 MG TAB PO (21:00)
[2018-04-21] MEDS: PANTOPRAZOLE 40 MG INJ IV ×2 (06:07→17:00)
[2018-04-21 06:38] LABS: ADD MAN DIFF? NO
[2018-04-21 06:46] LABS: ABNORMAL IP MESSAGE 1; BASOPHILS % 0.1 % (0.0-2.0); HEMATOCRIT 21.6 % (42.0-52.0); IMMATURE GRANS #M 0.14 10^3/ul; IMMATURE GRANS % (M) 0.6 %; LYMPHOCYTES # 0.3 10^3/ul (0.8-2.9); LYMPHOCYTES % 1.1 % (15.0-51.0); MEAN CORPUSCULAR HEMOGLOBIN 27.8 pg (29.0-33.0); MEAN CORPUSCULAR HGB CONC 32.4 g/dl (32.0-37.0); MEAN CORPUSCULAR VOLUME 85.7 fl (82.0-101.0); MEAN PLATELET VOLUME 12.9 fl (7.4-10.4); MONOCYTE # 0.7 10^3/ul (0.3-0.9); MONOCYTES % 2.7 % (0.0-11.0); NEUTROPHILS % 95.5 % (39.0-77.0); NUCLEATED RED BLOOD CELLS% 0.1 /100WBC (0.0-0.0); PLATELET COUNT 163 10^3/UL (140-415); POSITIVE DIFF @See below; RED BLOOD COUNT 2.52 10^6/ul (4.70-6.10); RED CELL DISTRIBUTION WIDTH 17.2 % (11.5-14.5)
[2018-04-21 06:46] LABS: WHITE BLOOD COUNT 24.1 10^3/ul (4.8-10.8)
[2018-04-21 07:06] LABS: MAGNESIUM 2.1 mg/dl (1.7-2.5)
[2018-04-21 07:09] LABS: ANION GAP 15 (8-16); BLOOD UREA NITROGEN 74 mg/dl (7-20); CALCIUM 9.1 mg/dl (8.4-10.2); CARBON DIOXIDE 28 mmol/L (21-31); CHLORIDE 97 mmol/L (97-110); CREATININE 2.43 mg/dl (0.61-1.24); GLUCOSE 105 mg/dl (70-220); POTASSIUM 4.9 mmol/L (3.5-5.1); SODIUM 135 mmol/L (135-144)
[2018-04-21] MEDS: DILTIAZEM 25 MG INJ IV (07:59)
[2018-04-21] MEDS: ALBUTEROL/IPRATROPIUM (NEB) 3 ML AMP HHN ×4 (08:00→23:41)
[2018-04-21] MEDS: SUCRALFATE (100 MG/ML) 10ML CUP GTB ×5 (08:48→21:48)
[2018-04-21] MEDS: COLLAGENASE 5 GM (UD JAR) TOP (08:48)
[2018-04-21] MEDS: METOPROLOL 25 MG TAB NGT ×4 (08:48→21:03)
[2018-04-21] MEDS: NYSTATIN 30 GM POWDER BTL TOP ×2 (08:48→21:03)
[2018-04-21] MEDS: ALLOPURINOL 100 MG TAB PO ×2 (08:49→21:02)
[2018-04-21] MEDS: BALSAM PERU/CASTOR OIL 60 GM TUBE TOP ×2 (08:49→21:04)
[2018-04-21] MEDS: AMLODIPINE 5 MG TAB NGT (08:49)
[2018-04-21] MEDS: predniSONE 20 MG TAB GTB (08:49)
[2018-04-21] MEDS: FLUCONAZOLE 200 MG (PMX) 100 ML IVPB (12:51)
[2018-04-21] MEDS: METOPROLOL 5 MG INJ IV (12:53)
[2018-04-21] MEDS: DILTIAZEM-D5W 125MG/125ML DRIP 125 ML IV (14:06)
[2018-04-21] MEDS: DILTIAZEM 30 MG TAB NGT (21:08)
[2018-04-22] MEDS: DILTIAZEM 30 MG TAB NGT ×4 (00:17→17:40)
[2018-04-22] MEDS: PANTOPRAZOLE 40 MG INJ IV ×2 (06:05→17:40)
[2018-04-22 06:37] LABS: ABNORMAL IP MESSAGE 1; HEMATOCRIT 22.2 % (42.0-52.0); HEMOGLOBIN 7.1 g/dl (14.0-18.0); IMMATURE GRANS #M 0.28 10^3/ul; MEAN CORPUSCULAR HEMOGLOBIN 27.4 pg (29.0-33.0); MEAN CORPUSCULAR VOLUME 85.7 fl (82.0-101.0); MEAN PLATELET VOLUME 13.4 fl (7.4-10.4); NUCLEATED RED BLOOD CELLS% 0.1 /100WBC (0.0-0.0); PLATELET COUNT 176 10^3/UL (140-415); POSITIVE DIFF @See below; RED BLOOD COUNT 2.59 10^6/ul (4.70-6.10); RED CELL DISTRIBUTION WIDTH 17.5 % (11.5-14.5)
[2018-04-22 06:48] LABS: ADD MAN DIFF? YES
[2018-04-22 07:00] LABS: ANION GAP 17 (8-16); BLOOD UREA NITROGEN 86 mg/dl (7-20); CALCIUM 9.2 mg/dl (8.4-10.2); CARBON DIOXIDE 26 mmol/L (21-31); CHLORIDE 95 mmol/L (97-110); CREATININE 2.94 mg/dl (0.61-1.24); GLUCOSE 129 mg/dl (70-220); POTASSIUM 5.4 mmol/L (3.5-5.1); SODIUM 133 mmol/L (135-144)
[2018-04-22 07:42] LABS: MAGNESIUM 2.1 mg/dl (1.7-2.5)
[2018-04-22] MEDS: ALBUTEROL/IPRATROPIUM (NEB) 3 ML AMP HHN ×2 (08:23→15:24)
[2018-04-22 09:20] LABS: ANISOCYTOSIS 2+ (0-0); BURR CELLS 1+ (0-0); HYPOCHROMASIA 2+ (0-0); OVALOCYTES 1+ (0-0); PLATELET ESTIMATE NORMAL; ROULEAU 1+ (0-0); SEGMENTED NEUTROPHILS (M) % 100 % (39-77); SMUDGE%M 8 % (0-0)
[2018-04-22] MEDS: COLLAGENASE 5 GM (UD JAR) TOP (09:57)
[2018-04-22] MEDS: AMLODIPINE 5 MG TAB NGT (09:58)
[2018-04-22] MEDS: predniSONE 20 MG TAB GTB (09:58)
[2018-04-22] MEDS: METOPROLOL 25 MG TAB NGT ×4 (09:58→20:42)
[2018-04-22] MEDS: ALLOPURINOL 100 MG TAB PO ×2 (09:58→20:41)
[2018-04-22] MEDS: NYSTATIN 30 GM POWDER BTL TOP ×2 (09:59→20:43)
[2018-04-22] MEDS: BALSAM PERU/CASTOR OIL 60 GM TUBE TOP ×2 (09:59→20:43)
[2018-04-22] MEDS: SUCRALFATE (100 MG/ML) 10ML CUP GTB ×4 (10:01→20:41)
[2018-04-22] MEDS: FLUCONAZOLE 200 MG (PMX) 100 ML IVPB (11:17)
[2018-04-22] MEDS: NA POLYST SULFON 15 GM/60 ML BTL GTB (16:01)
[2018-04-23] MEDS: ALBUTEROL/IPRATROPIUM (NEB) 3 ML AMP HHN (00:15)
[2018-04-23] MEDS: SOD CHLORIDE 0.9% 500 ML IV (01:07)
[2018-04-23] MEDS: ATROPINE 1 MG INJ IV (01:16)
[2018-04-23] MEDS: morphine 10 MG INJ IV (02:13)
== END 2018-04-23 02:21 | disposition expired | DRG 871 ==
LOC: ICU 04-04 11:35 → TEL 04-09 12:52 → ICU 04-11 20:20 → 6WM 04-16 15:00 → E/R 08:22 → MS4 10:39
PROC: 5A09557 Assistance with Respiratory Ventilation, Greater than 96 Consecutive Hours, Continuous Positive Airway Pressure (ICD-10-PCS; 2018-03-25)
PROC: 30233N1 Transfusion of Nonautologous Red Blood Cells into Peripheral Vein, Percutaneous Approach (ICD-10-PCS; 2018-03-28)
PROC: 02HV33Z Insertion of Infusion Device into Superior Vena Cava, Percutaneous Approach (ICD-10-PCS; principal; 2018-04-07)
PROC: 02HV33Z Insertion of Infusion Device into Superior Vena Cava, Percutaneous Approach (ICD-10-PCS; 2018-04-10)
PROC: 5A1D70Z Performance of Urinary Filtration, Intermittent, Less than 6 Hours Per Day (ICD-10-PCS; 2018-04-10)
DX: A41.9 Sepsis, unspecified organism (principal); L89.894 Pressure ulcer of other site, stage 4; J69.0 Pneumonitis due to inhalation of food and vomit; J96.01 Acute respiratory failure with hypoxia; N17.0 Acute kidney failure with tubular necrosis; I48.92 Unspecified atrial flutter; B49 Unspecified mycosis; R65.20 Severe sepsis without septic shock; L89.890 Pressure ulcer of other site, unstageable; I10 Essential (primary) hypertension; G30.9 Alzheimer's disease, unspecified; F02.80 Dementia in other diseases classified elsewhere, unspecified severity, without behavioral disturbance, psychotic disturbance, mood disturbance, and anxiety; R62.7 Adult failure to thrive; I48.91 Unspecified atrial fibrillation; J44.9 Chronic obstructive pulmonary disease, unspecified; E79.0 Hyperuricemia without signs of inflammatory arthritis and tophaceous disease; D69.6 Thrombocytopenia, unspecified; D64.9 Anemia, unspecified; J84.10 Pulmonary fibrosis, unspecified; N50.89 Other specified disorders of the male genital organs; N48.89 Other specified disorders of penis; E87.5 Hyperkalemia; Z66 Do not resuscitate; Z93.1 Gastrostomy status; Z74.01 Bed confinement status
CPT/HCPCS: 36415; 36430; 36569; 36600; 71045; 76775; 76937; 80048; 80053; 80202; 82550; 82803; 82962; 83605; 83735; 83880; 84100; 84132; 84484; 84560; 85025; 85610; 85730; 86703; 86704; 86709; 86803; 86850; 86900; 86901; 86920; 87040; 87081; 87086; 87340; 90935; 93005; 94640; 94660; 94664; 96374; 96375; 99291-25